=== PATIENT | female | born 1955 | race Caucasian/White ===

== ENCOUNTER → 2017-08-01 16:53 | Outpatient (CLI) | payer OTHER, SELFPAY ==
[2017-08-01 18:33] LABS: Absolute Lymphocyte Count 2.94 X10^3/ul (0.83-4.51); Absolute Neutrophil Count 3.2 X10^3/uL (2.0-7.7); Basophil# 0.02 X10^3/uL; Basophil% 0.3 % (0-1); Eosinophil# 0.34 X10^3/uL; Eosinophils% 4.7 % (0-5); Hematocrit 40.2 % (37-47); Hemoglobin 13.4 g/dl (12.0-15.0); Lymphocyte # 2.94 X10^3/ul (4.0); Lymphocyte % 40.9 % (19-41); Mean Corp Hgb Conc 33.3 g/gl (32-36); Mean Corpuscular Hgb 29.9 pg (27.0-32.0); Mean Corpuscular Volume 89.7 fL (81-99); Mean Platelet Vol. 10.2 fl (6.2-12.0); Monocyte# 0.68 X10^3/uL; Monocyte% 9.5 % (0-10); Neutrophil # 3.19 X10^3/uL (2.7-7.7); Neutrophil % 44.5 % (47-70); Platelet Count 241 K/mm3 (150-450); RBC Distribution Width CV 13.4 % (11.6-14.6); RBC Distribution Width SD 43.7 fl (35.1-43.9); Red Blood Count 4.48 M/mm3 (4.2-5.4); Thyroid Stim Hormone (TSH) 3.43 uIU/mL (0.358-3.74); White Blood Count 7.2 K/mm3 (4.4-11.0)
[2017-08-01 18:52] LABS: POSITIVE COUNT NO; POSITIVE DIFFERENTIAL NO; POSITIVE MORPHOLOGY NO
== END ==
PROVIDERS: Family Provider Family Medicine; PCP Family Medicine; Visit Provider Family Medicine
DX: J45.909 Unspecified asthma, uncomplicated (principal); E04.2 Nontoxic multinodular goiter
CPT/HCPCS: 36415; 84439; 84443; 85025

== ENCOUNTER → 2017-11-28 13:43 | Outpatient (CLI) | payer OTHER, SELFPAY | PROVIDERS: Family Provider Family Medicine; PCP Family Medicine; Visit Provider Family Medicine | DX: R92.8 Other abnormal and inconclusive findings on diagnostic imaging of breast (principal) | CPT/HCPCS: 77062; 77066; G0279 ==

== ENCOUNTER → 2018-12-10 06:57 | Outpatient (CLI) | payer OTHER, SELFPAY ==
--- NOTE | 2018-12-10 07:00 | BI_ITS ---
MAMMOGRAPHY - BILATERAL SCREENING REASON FOR EXAM: Female, 62 years old. Routine annual screening examination. PERTINENT HISTORY: Mother with breast cancer. Six-month follow-up for left breast calcification. TECHNIQUE: Digital bilateral breast zuleyma (3D mammographic acquisition) in the CC and MLO projections. 2-D mediolateral oblique (MLO) and craniocaudad (CC) views of both breasts were obtained. CAD: Full Field Digital Mammography with Computer Added Detection was performed. COMPARISON: Comparison is made with prior study dated November 28, 2017. FINDINGS: Breast Composition: There are scattered areas of fibroglandular density. There are no dominant masses or suspicious calcifications. Stable calcification in the central retroareolar region of the left breast. Stable bilateral axillary lymph nodes. No other significant abnormalities are identified. There has been no significant change since the prior study. BI/SCREEN MAMM (CAD) W/ZULEYMA BILAT IMPRESSION: Stable bilateral screening mammogram. Yearly follow-up mammogram recommended. (A) ASSESSMENT CATEGORY: BIRADS Category 2: Benign. A letter regarding these results will be sent to the patient by the facility within 30 days. Approximately 10% of breast cancers are not detected by mammography. A normal mammogram should not delay biopsy of a clinically suspicious abnormality. [id number] Electronically Signed: Chintan Lopez, at 9:16 EDT , Service support ,
== END ==
PROVIDERS: Family Provider Family Medicine; PCP Family Medicine; Referring Provider Family Medicine; Visit Provider Family Medicine
DX: Z12.31 Encounter for screening mammogram for malignant neoplasm of breast (principal); Z80.3 Family history of malignant neoplasm of breast
CPT/HCPCS: 77063; 77067

== ENCOUNTER → 2019-02-06 09:16 | Outpatient (CLI) | payer OTHER, SELFPAY ==
[2013-10-17 17:58] VITALS: BMI 33.6
[2019-02-06 09:22] LABS: Bacteria 0 SEEN /hpf (None Seen); Mucous, Urine 0 SEEN /hpf (<or=2+); Red Blood Cells-Urine 0 SEEN /hpf (0-5)
[2019-02-06 10:26] LABS: Color, Urine Yellow (Yellow); Glucose, Dipstick Normal (Normal); Ketone-Dipstick Negative (Negative); Leukocyte Esterase-Dipstick 25 /ul (Negative); Nitrite-Dipstick Negative (Negative); Occult Blood-Urine Negative /ul (Negative); Protein-Dipstick Negative (Negative); Specific Gravity, Urine 1.015 (1.002-1.030); Urine Bilirubin Dipstick Negative (Negative); Urine Clarity Clear (Clear); Urine Urobilinogen Normal (Normal)
[2019-02-06 10:39] LABS: Squamous Epithelial Cells - UA 0-5 SEEN /hpf (5-10); White Blood Cells 0-5 SEEN /hpf (0-5)
== END ==
PROVIDERS: Family Provider Family Medicine; PCP Family Medicine; Referring Provider Family Medicine; Visit Provider Family Medicine
DX: N39.0 Urinary tract infection, site not specified (principal)
CPT/HCPCS: 81001; 87086; 87088

== ENCOUNTER → 2019-02-09 08:39 | Outpatient (CLI) | payer OTHER, SELFPAY ==
[2013-10-17 17:58] VITALS: BMI 33.6
[2019-02-09 10:23] LABS: Absolute Lymphocyte Count 2.25 X10^3/uL (0.83-4.51); Absolute Neutrophil Count 4.1 X10^3/uL (2.0-7.7); Basophil# 0.03 X10^3/uL; Basophil% 0.4 % (0-1); Eosinophil# 0.33 X10^3/uL; Eosinophils% 4.5 % (0-5); Hemoglobin 13.5 g/dL (12.0-15.0); Lymphocyte # 2.25 X10^3/ul (4.0); Lymphocyte % 30.4 % (19-41); Mean Corp Hgb Conc 32.1 g/dL (32-36); Mean Corpuscular Hgb 29.4 pg (27.0-32.0); Mean Corpuscular Volume 91.5 fL (81-99); Mean Platelet Vol. 10.3 fl (6.2-12.0); Monocyte# 0.63 X10^3/uL; Monocyte% 8.5 % (0-10); NRBC Flagged by Analyzer 0 % (0-5); Neutrophil # 4.13 X10^3/uL (2.7-7.7); Neutrophil % 55.9 % (47-70); Platelet Count 215 K/mm3 (150-450); RBC Distribution Width CV 13.2 % (11.6-14.6); RBC Distribution Width SD 44.3 fl (35.1-43.9); Red Blood Count 4.59 M/mm3 (4.2-5.4); White Blood Count 7.4 K/mm3 (4.4-11.0)
[2019-02-09 10:58] LABS: ALB/GLOB Ratio 0.9 RATIO (0.9-2.4); AST(SGOT) 17 U/L (15-37); Alanine Aminotransfer ALT/SGPT 26 U/L (13-56); Albumin, Serum 3.7 g/dL (3.2-5.0); Alkaline Phosphatase 105 U/L (45-117); Anion Gap 9 (5-15); BUN 23 mg/dL (7-18); BUN/Creat Ratio 34.8 RATIO (10-20); Calcium,Total 9.2 mg/dL (8.5-10.1); Chloride 106 mmol/L (98-107); Cholesterol 203 mg/dL (200); Creatinine, Serum 0.66 mg/dL (0.55-1.02); EST Glomerular Filtration Rate 96 mL/min (>60); Est Glom Filt Rate - Afr Amer 117 mL/min (>60); Globulin 4.2 g/dL (2.2-4.2); Glucose 93 mg/dL (74-106); High Density Lipoprotein 85 mg/dL; Potassium 3.8 mmol/L (3.5-5.1); Protein, Total 7.9 g/dL (6.4-8.2); Sodium Level 140 mmol/L (136-145); Thyroid Stim Hormone (TSH) 4.35 uIU/mL (0.358-3.74); Triglycerides 107 mg/dL; Very Low Density Lipoprotein 21 mg/dL (5-40)
[2019-02-10 08:58] LABS: T4 Free Direct 0.91 ng/dL (0.76-1.46)
== END ==
PROVIDERS: Family Provider Family Medicine; PCP Family Medicine; Visit Provider Family Medicine
DX: Z00.00 Encounter for general adult medical examination without abnormal findings (principal); R79.89 Other specified abnormal findings of blood chemistry
CPT/HCPCS: 36415; 80053; 80061; 84439; 84443; 85025

== ENCOUNTER → 2019-02-10 14:57 | Outpatient (CLI) | payer OTHER, SELFPAY ==
[2019-02-10 18:18] LABS: T4 Free Direct 0.97 ng/dL (0.76-1.46)
[2019-02-12 15:48] LABS: Thyroglobulin Antibody 40.1 IU/mL (0.0-0.9); Thyroid Peroxidase AB 209 IU/mL (0-34)
== END ==
PROVIDERS: Family Provider Family Medicine; PCP Family Medicine; Visit Provider Family Medicine
DX: R79.89 Other specified abnormal findings of blood chemistry (principal)
CPT/HCPCS: 36415; 84439; 86376; 86800

== ENCOUNTER → 2019-03-16 13:17 | Outpatient (CLI) | payer OTHER, SELFPAY ==
--- NOTE | 2019-03-16 13:18 | US_ITS ---
STUDY: THYROID ULTRASOUND REASON FOR EXAM: Female, 63 years old. NODULES TECHNIQUE: Ultrasound evaluation of the thyroid was performed with real-time and static parker-scale imaging. COMPARISON: None. FINDINGS: RIGHT LOBE: The right lobe of the thyroid gland measures 5.2 x 1.8 x 1.8 cm. There is a heterogeneous echotexture. Within the right thyroid lobe there are multiple hypoechoic and isoechoic nodules with hypoechoic rim and internal color flow, largest seen within the middle pole and measuring 2.3 x 1.9 x 1.1 cm. This reveals small internal calcification measuring 2.1 mm. The margins are regular. LEFT LOBE: The left lobe of the thyroid gland measures 4.8 x 1.4 x 1.9 cm. There is a heterogeneous echotexture. Within the lower pole of the left thyroid lobe there is a small hypoechoic nodule with internal color flow and hypoechoic rim. The margins are regular. ISTHMUS: The isthmus measures 0.4 cm. The regional lymph nodes are normal. US/Thyroid IMPRESSION: Bilateral thyroid lobe nodules, largest seen within the right middle pole and measuring 2.3 x 1.9 x 1.1 cm and morphology favoring benign process. Note to be made that benign versus malignant process cannot be accurately determined without microscopic evaluation or documentation of stability. If indicated, follow-up ultrasound in 8-12 months recommended. Electronically Signed: Chelsy Hays MD at 4:05 EST , Service support ,
--- NOTE | 2019-03-16 13:44 | ECHOD_ITS ---
Reason For Study: Heart Murmur Procedure This was a 2D Doppler, Color Flow transthoracic echocardiogram. Exam performed in department. Left Ventricle Normal LV size. Left ventricular systolic function is normal. The estimated ejection fraction is 55 %. No regional wall motion abnormalities noted. Right Ventricle Normal RV size. Normal systolic function. Atria Normal left atrium. Normal right atrium. Mitral Valve Normal mitral valve. Trivial eccentric mitral valve insufficiency. Tricuspid Valve Normal tricuspid valve. Aortic Valve Normal aortic valve. Trisinus/trileaflet aortic valve. Pulmonic Valve Normal pulmonic valve. Great Vessels Normal aortic root. The pulmonary artery is normal size. Normal inferior vena cava. Pericardium/Pleural No pericardial effusion. MMode/2D Measurements & Calculations LVIDd: 5.2 cm IVSd: 0.97 cm Ao root diam: 3.5 cm LVIDs: 3.0 cm LVPWd: 1.0 cm LA dimension: 4.0 cm RVDd: 2.9 cm FS: 42.3 % LAV(MOD-bp): 55.0 ml LA A4 area: 18.9 cm2 RA A4 area: 13.0 cm2 LAV(MOD-bp) Indexed: 30.6 ml/m2 LAV(MOD-sp2): 54.5 ml LAV(MOD-sp4): 53.5 ml Time Measurements MV dec time: 0.19 sec Doppler Measurements & Calculations MV E max edgardo: 85.2 cm/sec Lat Peak E' Edgardo: 12.9 cm/sec Med Peak E' Edgardo: 7.2 cm/sec MV A max edgardo: 69.0 cm/sec E/E' lat: 6.6 E/E' med: 11.9 MV E/A: 1.2 MV V2 max: 93.2 cm/sec MV P1/2t max edgardo: 93.2 cm/sec Ao V2 max: 131.4 cm/sec MV max P.5 mmHg MV P1/2t: 49.2 msec Ao max P.9 mmHg MV V2 mean: 50.2 cm/sec MV dec slope: 555.2 cm/sec2 MV mean P.2 mmHg MVA(P1/2t): 4.5 cm2 MV V2 VTI: 29.6 cm LV V1 max: 122.4 cm/sec PA V2 max: 100.2 cm/sec TR max edgardo: 225.4 cm/sec LV V1 max P.0 mmHg TR max P.3 mmHg Interpretation Summary Normal LV size. Left ventricular systolic function is normal. The estimated ejection fraction is 55 %. No regional wall motion abnormalities noted. Structurally normal valves. Ordering Physician: Mark Phipps Referring Physician: Mark Phipps Performed By: Khalif Nuñez RCS
== END ==
PROVIDERS: Family Provider Family Medicine; PCP Family Medicine; Referring Provider Family Medicine; Visit Provider Family Medicine
DX: E04.2 Nontoxic multinodular goiter (principal); R01.1 Cardiac murmur, unspecified
CPT/HCPCS: 76536; 93306

== ENCOUNTER → 2019-05-26 08:23 | Outpatient (CLI) | payer OTHER, SELFPAY ==
[2019-03-30 15:20] VITALS: BMI 33.6
[2019-05-26 10:56] LABS: ALB/GLOB Ratio 1.1 RATIO (0.9-2.4); AST(SGOT) 17 U/L (15-37); Alanine Aminotransfer ALT/SGPT 26 U/L (13-56); Albumin, Serum 3.6 g/dL (3.2-5.0); Alkaline Phosphatase 101 U/L (45-117); Anion Gap 5 (5-15); BUN 25 mg/dL (7-18); BUN/Creat Ratio 45.6 RATIO (10-20); Calcium,Total 9.2 mg/dL (8.5-10.1); Chloride 113 mmol/L (98-107); Creatinine, Serum 0.55 mg/dL (0.55-1.02); EST Glomerular Filtration Rate 119 mL/min (>60); Est Glom Filt Rate - Afr Amer 144 mL/min (>60); Globulin 3.4 g/dL (2.2-4.2); Glucose 97 mg/dL (74-106); Potassium 3.9 mmol/L (3.5-5.1); Sodium Level 142 mmol/L (136-145); T4 Free Direct 0.85 ng/dL (0.76-1.46); Thyroid Stim Hormone (TSH) 3.94 uIU/mL (0.358-3.74)
== END ==
PROVIDERS: PCP Family Medicine; Referring Provider Family Medicine; Visit Provider Family Medicine
DX: I10 Essential (primary) hypertension (principal); E06.3 Autoimmune thyroiditis
CPT/HCPCS: 36415; 80053; 84439; 84443

== ENCOUNTER → 2019-05-29 08:53 | Outpatient (CLI) | payer OTHER, SELFPAY ==
[2019-03-30 15:20] VITALS: BMI 33.6
--- NOTE | 2019-05-29 08:56 | RAD_ITS ---
HISTORY: HISTORY: thumb pain XR Hand Min 3 Views COMPARISON: Right hand imaging from the same day FINDINGS: # of images incl. paperwork: 3 3 views of the left hand. Osteoarthritis is present at the first carpometacarpal joint (, however, the disease is less than that of the right hand. No significant interphalangeal joint arthritis is present on the left hand other than perhaps a small osteophyte on the ulnar side of the sac and distal interphalangeal joint Bony alignment otherwise is normal. Cortices are intact. No foreign bodies are perceived. RAD/Hand Min 3 Views IMPRESSION: Osteoarthritis at the first carpometacarpal joint at 0555 Reported and signed by: Pedro Zambrano MD Electronically Signed: Pedro Zambrano MD at 5:54 EST Tel , Service support ,
--- NOTE | 2019-05-29 08:56 | RAD_ITS ---
HISTORY: HISTORY: thumb pain XR Hand Min 3 Views COMPARISON: No previous imaging. FINDINGS: # of images incl. paperwork: 3 3 views of the right hand. Osteoarthritis is severe at the first carpometacarpal joint. Minimal interphalangeal joint arthritis is present. At the first carpometacarpal joint there is sclerosis, osteophytes, malalignment, subcortical cystic degenerative change, and soft tissue swelling. RAD/Hand Min 3 Views IMPRESSION: Osteoarthritis greatest the first carpometacarpal joint. at 0553 Reported and signed by: Pedro Zambrano MD Electronically Signed: Pedro Zambrano MD at 5:52 EST Tel , Service support ,
== END ==
PROVIDERS: PCP Family Medicine; Referring Provider Family Medicine; Visit Provider Family Medicine
DX: M18.0 Bilateral primary osteoarthritis of first carpometacarpal joints (principal)
CPT/HCPCS: 73130

== ENCOUNTER → 2019-09-29 13:49 | Outpatient (CLI) | payer OTHER, SELFPAY ==
[2019-03-30 15:20] VITALS: BMI 33.6
[2019-09-29 18:14] LABS: T4 Free Direct 0.91 ng/dL (0.76-1.46)
== END ==
PROVIDERS: PCP Family Medicine; Visit Provider Family Medicine
DX: E06.3 Autoimmune thyroiditis (principal)
CPT/HCPCS: 36415; 84439; 84443

== ENCOUNTER → 2019-10-02 09:48 | Outpatient (CLI) | payer OTHER, SELFPAY ==
[2019-03-30 15:20] VITALS: BMI 33.6
--- NOTE | 2019-10-02 09:51 | RAD_ITS ---
STUDY: X-RAY - RIGHT KNEE REASON FOR EXAM: Female, 63 years old. bilateral knee pain TECHNIQUE: 3 view(s) of the knee. COMPARISON: 10/17/2013 FINDINGS: Normal visualized distal femur. Normal visualized proximal tibia and fibula. Normal proximal tibiofibular articulation. There is severe degenerative arthrosis of the medial femorotibial compartment with severe joint space narrowing. There is mild degenerative arthrosis of the lateral femorotibial compartment. There is moderate degenerative arthrosis of the patellofemoral articulation. There is a soft tissue prominence in the suprapatellar region suggesting a small volume joint effusion. The soft tissue structures are unremarkable. RAD/Knee 3 Views IMPRESSION: Degenerative arthrosis. Electronically Signed: Anshul Vasquez MD at 7:40 EDT Tel , Service support ,
--- NOTE | 2019-10-02 09:55 | RAD_ITS ---
STUDY: X-RAY - LEFT KNEE REASON FOR EXAM: Female, 63 years old. bilateral knee pain TECHNIQUE: 3 view(s) of the knee. COMPARISON: None. FINDINGS: Normal visualized distal femur. Normal visualized proximal tibia and fibula. Normal proximal tibiofibular articulation. There is moderate degenerative arthrosis of the medial femorotibial compartment with moderate joint space narrowing. There is mild degenerative arthrosis of the lateral femorotibial compartment. There is mild degenerative arthrosis of the patellofemoral articulation. There is a soft tissue prominence in the suprapatellar region suggesting a small volume joint effusion. The soft tissue structures are unremarkable. RAD/Knee 3 Views IMPRESSION: Degenerative arthrosis. Electronically Signed: Anshul Vasquez MD at 7:39 EDT Tel , Service support ,
== END ==
PROVIDERS: PCP Family Medicine; Referring Provider Family Medicine; Visit Provider Family Medicine
DX: M17.0 Bilateral primary osteoarthritis of knee (principal)
CPT/HCPCS: 73562

== ENCOUNTER 2019-10-16 08:43 | Day surgery (SDC) | payer OTHER, SELFPAY ==
[2019-03-30 15:20] VITALS: BMI 33.6
[2019-10-16] MEDS: Lactated Ringers 1,000 ML 100 ML IV (09:32)
[2019-10-16 09:33] VITALS: BP 128/79; PULSE 63; RESP 16; TEMP 36.1; O2SAT 95; BMI 33.3
--- NOTE | 2019-10-16 10:32 | PCM.HP.STD ---
Problem List (1) Screening for intestinal cancer Status: Acute History of Present Illness Date of Admission: 10/16/19 The patient is a 63 year old F who presents for screening colonoscopy today. She presents via open access. Previous colonoscopy was July 2009. She denies family history of colon cancer. No abdominal pain. No bright red blood per rectum or melena. She otherwise enjoys good health. Past Medical History Medical History: Medical History (Last Updated 03/30/19 @ 15:13 by Meeta Norman) Yann's thyroiditis (Acute) E06.3 Thyroid nodule (Acute) E04.1 Cardiac murmur R01.1 Yann's thyroiditis E06.3 Multiple thyroid nodules E04.2 HTN (hypertension) I10 Allergies No Known Allergies Allergy (Verified 10/16/19 09:07) Home Medications: Ambulatory Orders Medication Instructions Recorded amlodipine 10 mg tablet 10 mg PO DAILY 03/30/19 Hydrochlorothiazide 12.5 mg PO DAILY 10/09/19 Surgical History: Surgical History (Last Updated 03/30/19 @ 15:13 by Meeta Norman) History of arthroscopy of left knee Z98.890 History of colonoscopy Onset Date: ~2009 Z98.890 History of tonsillectomy Z90.89 History of total hysterectomy Z90.710 history of removal heel spur Smoking Status: Never smoker Tobacco Use: Non-smoker Review of Systems Constitutional: Denies: Chills, Fever Cardiovascular: Denies: Chest Pain Gastrointestinal: Denies: Abdominal Pain Endocrine: Denies: Change in Body Habitus VTE Information - Inpt Only VTE Present on Admission: No Patient Problems: Active and Suspected Problems (Last Updated 03/30/19 @ 15:13 by Meeta Norman) Screening for intestinal cancer (Acute) - Physical Exam Vitals/I&O's: Vital Signs Temp Pulse Resp BP Pulse Ox 97.0 F L 63 16 128/79 H 95 10/16/19 09:33 10/16/19 09:33 10/16/19 09:33 10/16/19 09:33 10/16/19 09:33 Oxygen Delivery Method Room Air Weight: 188 lb 7.924 oz Body Mass Index (BMI) 33.3 General: Alert, Oriented x3, Cooperative, No apparent distress HEENT: Atraumatic Oral: Moist Mucosa Lungs: Clear to auscultation, Normal air movement Cardiovascular: Regular rate, Regular Rhythm Abdomen: Bowel Sounds Present, Soft, Non Tender Extremities: No Calf Tenderness Neurological: - - Normal cognition Psych/Mental Status: Normal Affect Current Medications Lactated Ringer's () 1,000 mls @ 100 mls/hr IV .Q10H JONATHON Last Admin: 10/16/19 09:32 Dose: 100 mls/hr Documented by: Assessment/Plan All Active Problems (Last Updated 03/30/19 @ 15:13 by Meeta Norman) Screening for intestinal cancer (Acute) Yann's thyroiditis (Acute) Thyroid nodule (Acute) Arm contusion (Acute) I recommended the patient a screening colonoscopy with possible biopsy or polypectomy is indicated. She is aware of the technique, benefit, risk, alternatives. She presents via open access today. We will proceed as noted. Sandip Raman M.D., F.A.C.S. Procedure Criteria Procedure Type: Elective COVID Risk Discussion: The surgeon/proceduralist and patient have discussed in detail the risk of exposure to and/or potential harm posed by the COVID-19 virus with having a surgery/procedure at this time versus the risk of delaying the surgery/procedure. It is not possible to know either the risk of delaying the surgery or procedure or chance of getting an infection with perfect accuracy, but a joint decision was made between the patient and the surgeon/proceduralist to proceed at this time with the scheduled surgery/procedure as indicated on the consent form.
[2019-10-16 11:10] VITALS: BP 112/61; BP 128/79; PULSE 75; RESP 16; TEMP 36.5; O2SAT 99
--- NOTE | 2019-10-16 11:10 | OP.COLON_ITS ---
Patient Name: Faye Gant Procedure Date: 10/16/2019 10:37 AM Date of : 1955 Age: 63 Procedure: Colonoscopy Indications: Screening for colorectal malignant neoplasm Providers: Sandip Raman MD Referring MD: Mark Phipps Medicines: See the Anesthesia note for documentation of the administered medications Patient Profile: Last Colonoscopy: 10 years ago. Complications: No immediate complications. Procedure: Pre-Anesthesia Assessment: - Prior to the procedure, a History and Physical was performed, and patient medications and allergies were reviewed. The patient's tolerance of previous anesthesia was also reviewed. The risks and benefits of the procedure and the sedation options and risks were discussed with the patient. All questions were answered, and informed consent was obtained. Prior Anticoagulants: The patient has taken no previous anticoagulant or antiplatelet agents. ASA Grade Assessment: II - A patient with mild systemic disease. After reviewing the risks and benefits, the patient was deemed in satisfactory condition to undergo the procedure. After I obtained informed consent, the scope was passed under direct vision. Throughout the procedure, the patient's blood pressure, pulse, and oxygen saturations were monitored continuously. The pediatric colonoscope was introduced through the anus and advanced to the cecum, identified by appendiceal orifice and ileocecal valve. The colonoscopy was performed with moderate difficulty due to a tortuous colon. The patient tolerated the procedure well. The quality of the bowel preparation was adequate to identify polyps. The ileocecal valve and the appendiceal orifice were photographed. Scope In: 10:49:59 AM Scope Withdrawal Time 0 hours 6 minutes 39 seconds Scope Out: 11:05:08 AM Total Procedure Duration Time 0 hours 15 minutes 9 seconds Findings: The digital rectal exam findings include non-thrombosed external hemorrhoids, non-thrombosed internal hemorrhoids and internal hemorrhoids that prolapse with straining, but spontaneously regress to the resting position (Grade II). Scattered diverticula were found in the sigmoid colon. The colon (entire examined portion) was moderately tortuous. Advancing the scope required using manual pressure. Impression: - Non-thrombosed external hemorrhoids, non-thrombosed internal hemorrhoids and internal hemorrhoids that prolapse with straining, but spontaneously regress to the resting position (Grade II) found on digital rectal exam. - Diverticulosis in the sigmoid colon. - Tortuous colon. - No specimens collected. Recommendation: - Discharge patient to home. - Resume previous diet. - Continue present medications. - Repeat colonoscopy in 10 years for screening purposes. Procedure Code(s): --- Professional --- 78612, Colonoscopy, flexible; diagnostic, including collection of specimen(s) by brushing or washing, when performed (separate procedure) Diagnosis Code(s): --- Professional --- Z12.11, Encounter for screening for malignant neoplasm of colon K64.1, Second degree hemorrhoids K64.4, Residual hemorrhoidal skin tags K57.30, Diverticulosis of large intestine without perforation or abscess without bleeding Q43.8, Other specified congenital malformations of intestine CPT copyright 2017 [employer]. All rights reserved. The codes documented in this report are preliminary and upon remote inpatient coder review may be revised to meet current compliance requirements. Sandip Raman MD 10/16/2019 11:09:36 AM This report has been signed electronically. Number of Addenda: 0 Note Initiated On: 10/16/2019 10:37 AM
--- NOTE | 2019-10-16 11:10 | OP.CCLET_ITS ---
10/16/2019 Mark Phipps [address] [place] [address] Re : Colonoscopy procedure for Faye Richmond Dear Dr. Phipps This procedure was performed on Wednesday, October 16, 2019. My impressions and recommendations are as follows: Impressions : - Non-thrombosed external hemorrhoids, non-thrombosed internal hemorrhoids and internal hemorrhoids that prolapse with straining, but spontaneously regress to the resting position (Grade II) found on digital rectal exam. - Diverticulosis in the sigmoid colon. - Tortuous colon. - No specimens collected. Recommendations : - Discharge patient to home. - Resume previous diet. - Continue present medications. - Repeat colonoscopy in 10 years for screening purposes. My findings are described in the full procedure note, which is enclosed. If I can be of further assistance, please feel free to contact me at Doctor phone number(s): Work: . Sincerely, Sandip Raman MD 10/16/2019 11:09:36 AM This report has been signed electronically.
[2019-10-16 11:15] VITALS: BP 113/58; BP 128/79; PULSE 64; RESP 16; O2SAT 99
[2019-10-16 11:20] VITALS: BP 112/60; BP 128/79; PULSE 53; RESP 16; O2SAT 99
[2019-10-16 11:25] VITALS: BP 119/75; BP 128/79; PULSE 53; RESP 16; TEMP 36.2; O2SAT 100
[2019-10-16 11:48] VITALS: BP 128/79
== END 2019-10-16 11:49 | disposition home or self-care (01) ==
LOC: EN 08:44 → AC 08:46
PROVIDERS: Anesthesiology; PCP Family Medicine; Referring Provider Family Medicine; Visit Provider Surgery
PROC: 0DJD8ZZ Inspection of Lower Intestinal Tract, Via Natural or Artificial Opening Endoscopic (ICD-10-PCS; CPT 45378; principal; 2019-10-16 09:55)
DX: Z12.11 Encounter for screening for malignant neoplasm of colon (principal); K64.1 Second degree hemorrhoids; K64.4 Residual hemorrhoidal skin tags; K57.30 Diverticulosis of large intestine without perforation or abscess without bleeding; I10 Essential (primary) hypertension; Z20.828 Contact with and (suspected) exposure to other viral communicable diseases
CPT/HCPCS: 45378; 87635; 94799; G2023; J7120; J2405; U0003

== ENCOUNTER → 2020-02-12 08:55 | Outpatient (CLI) | payer OTHER, SELFPAY ==
[2020-02-12 10:22] LABS: Absolute Lymphocyte Count 1.89 X10^3/uL (0.83-4.51); Basophil# 0.04 X10^3/uL; Basophil% 0.6 % (0-1); Eosinophil# 0.33 X10^3/uL; Eosinophils% 4.8 % (0-5); Hematocrit 44.1 % (37-47); Hemoglobin 13.8 g/dL (12.0-15.0); Lymphocyte # 1.89 X10^3/ul (4.0); Lymphocyte % 27.6 % (19-41); Mean Corp Hgb Conc 31.3 g/dL (32-36); Mean Corpuscular Hgb 28.7 pg (27.0-32.0); Mean Corpuscular Volume 91.7 fL (81-99); Mean Platelet Vol. 10.1 fl (6.2-12.0); Monocyte# 0.62 X10^3/uL; NRBC Flagged by Analyzer 0 % (0-5); Neutrophil # 3.97 X10^3/uL (2.7-7.7); Neutrophil % 57.9 % (47-70); Platelet Count 252 K/mm3 (150-450); RBC Distribution Width CV 12.9 % (11.6-14.6); RBC Distribution Width SD 43.7 fl (35.1-43.9); Red Blood Count 4.81 M/mm3 (4.2-5.4); White Blood Count 6.9 K/mm3 (4.4-11.0)
[2020-02-12 10:39] LABS: Microalbumin,Random Urine 8.9 mg/L (NO RANGE EST.)
[2020-02-12 10:43] LABS: ALB/GLOB Ratio 0.9 RATIO (0.9-2.4); AST(SGOT) 19 U/L (15-37); Alanine Aminotransfer ALT/SGPT 29 U/L (13-56); Albumin, Serum 3.7 g/dL (3.2-5.0); Alkaline Phosphatase 108 U/L (45-117); Anion Gap 6 (5-15); BUN 19 mg/dL (7-18); BUN/Creat Ratio 28.1 RATIO (10-20); Calcium,Total 9.3 mg/dL (8.5-10.1); Chloride 106 mmol/L (98-107); Creatinine, Serum 0.68 mg/dL (0.55-1.02); EST Glomerular Filtration Rate 93 mL/min (>60); Est Glom Filt Rate - Afr Amer 113 mL/min (>60); Globulin 4.2 g/dL (2.2-4.2); Glucose 107 mg/dL (74-106); Potassium 3.8 mmol/L (3.5-5.1); Protein, Total 7.9 g/dL (6.4-8.2); Sodium Level 138 mmol/L (136-145); T4 Free Direct 1.16 ng/dL (0.76-1.46); Thyroid Stim Hormone (TSH) 3.65 uIU/mL (0.358-3.74)
[2020-02-15 12:35] LABS: Hemoglobin A1c 5.6 % (3.8-5.6)
== END ==
PROVIDERS: PCP Family Medicine; Visit Provider Family Medicine
DX: E06.3 Autoimmune thyroiditis (principal); E11.9 Type 2 diabetes mellitus without complications; I10 Essential (primary) hypertension
CPT/HCPCS: 36415; 80053; 82043; 82570; 83036; 84439; 84443; 85025

== ENCOUNTER → 2020-02-25 13:40 | Outpatient (CLI) | payer OTHER, SELFPAY ==
--- NOTE | 2020-02-25 13:42 | US_ITS ---
STUDY: THYROID ULTRASOUND REASON FOR EXAM: Female, 64 years old. Nodules TECHNIQUE: Ultrasound evaluation of the thyroid was performed with real-time and static parker-scale imaging. COMPARISON: Comparison is made with prior examination dated 03/16/2019. FINDINGS: RIGHT LOBE: The right lobe of the thyroid gland is enlarged and measures 5.4 cm x 1.9 cm x 1.7 cm. There is a heterogeneous echotexture. A dominant nodule is once again seen in the lower pole. This measures 2.1 cm x 1.6 x 1.1 cm. This has a cystic and solid component. Internal nodular blood flow. LEFT LOBE: The left lobe of the thyroid gland is enlarged and measures 5 cm x 1.4 cm x 1.6 cm. There is a heterogeneous echotexture. There is a 9 mm x 7 mm x 5 mm hypoechoic solid nodule in the lower pole. This is unchanged. There is internal blood flow. ISTHMUS: The isthmus measures 3.3 mm. The regional lymph nodes are normal. US/Thyroid IMPRESSION: Stable examination with a dominant complex nodule in the lower pole of the right lobe of thyroid measuring 2.1 cm x 1.6 cm x 1.1 cm. Electronically Signed: Chintan Lopez, at 14:46 EST , Service support ,
== END ==
PROVIDERS: PCP Family Medicine; Referring Provider Family Medicine; Visit Provider Family Medicine
DX: E04.2 Nontoxic multinodular goiter (principal)
CPT/HCPCS: 76536

== ENCOUNTER → 2020-05-27 10:05 | Outpatient (CLI) | payer OTHER, SELFPAY ==
[2020-05-27 10:11] LABS: Bacteria 0 SEEN /hpf (None Seen); Mucous, Urine 0 SEEN /hpf (<or=2+); Red Blood Cells-Urine 0 SEEN /hpf (0-5); White Blood Cells 0 SEEN /hpf (0-5)
[2020-05-27 12:19] LABS: Absolute Lymphocyte Count 1.99 X10^3/uL (0.83-4.51); Absolute Neutrophil Count 3.6 X10^3/uL (2.0-7.7); Basophil# 0.03 X10^3/uL; Basophil% 0.4 % (0-1); Eosinophil# 0.52 X10^3/uL; Eosinophils% 7.7 % (0-5); Hematocrit 39.3 % (37-47); Hemoglobin 13.7 g/dL (12.0-15.0); Lymphocyte # 1.99 X10^3/ul (4.0); Lymphocyte % 29.6 % (19-41); Mean Corp Hgb Conc 34.9 g/dL (32-36); Mean Corpuscular Volume 91.8 fL (81-99); Mean Platelet Vol. 10.3 fl (6.2-12.0); Monocyte% 8.9 % (0-10); NRBC Flagged by Analyzer 0 % (0-5); Neutrophil # 3.56 X10^3/uL (2.7-7.7); Neutrophil % 53.1 % (47-70); Platelet Count 217 K/mm3 (150-450); RBC Distribution Width CV 13.8 % (11.6-14.6); RBC Distribution Width SD 44.4 fl (35.1-43.9); Red Blood Count 4.28 M/mm3 (4.2-5.4); White Blood Count 6.7 K/mm3 (4.4-11.0)
[2020-05-27 12:23] LABS: Color, Urine Yellow (Yellow); Glucose, Dipstick Normal (Normal); Ketone-Dipstick Negative (Negative); Leukocyte Esterase-Dipstick Negative /ul (Negative); Nitrite-Dipstick Negative (Negative); Occult Blood-Urine Negative /ul (Negative); Protein-Dipstick Negative (Negative); Specific Gravity, Urine 1.015 (1.002-1.030); Urine Bilirubin Dipstick Negative (Negative); Urine Clarity Clear (Clear); Urine Urobilinogen Normal (Normal)
[2020-05-27 12:33] LABS: Microalbumin,Random Urine 5.4 mg/L (NO RANGE EST.); Microalbumin:Creatinine Ratio 23.7 mg/g CRE (<30 mg/g CRE)
[2020-05-27 12:39] LABS: ALB/GLOB Ratio 0.9 RATIO (0.9-2.4); AST(SGOT) 16 U/L (15-37); Alanine Aminotransfer ALT/SGPT 30 U/L (13-56); Albumin, Serum 3.5 g/dL (3.2-5.0); Alkaline Phosphatase 124 U/L (45-117); Anion Gap 8 (5-15); BUN 25 mg/dL (7-18); BUN/Creat Ratio 39.4 RATIO (10-20); Calcium,Total 9.2 mg/dL (8.5-10.1); Chloride 108 mmol/L (98-107); Cholesterol 190 mg/dL (200); Creatinine, Serum 0.64 mg/dL (0.55-1.02); EST Glomerular Filtration Rate 100 mL/min (>60); Est Glom Filt Rate - Afr Amer 122 mL/min (>60); Glucose 101 mg/dL (74-106); High Density Lipoprotein 71 mg/dL; Potassium 3.2 mmol/L (3.5-5.1); Protein, Total 7.5 g/dL (6.4-8.2); Sodium Level 141 mmol/L (136-145); T4 Free Direct 1.11 ng/dL (0.76-1.46); Thyroid Stim Hormone (TSH) 2.55 uIU/mL (0.358-3.74); Triglycerides 114 mg/dL; Very Low Density Lipoprotein 23 mg/dL (5-40)
[2020-05-27 13:03] LABS: Hemoglobin A1c 5.5 % (3.8-5.6)
[2020-05-27 13:08] LABS: Squamous Epithelial Cells - UA 0-5 SEEN /hpf (5-10)
== END ==
PROVIDERS: PCP Family Medicine; Referring Provider Family Medicine; Visit Provider Family Medicine
DX: I10 Essential (primary) hypertension (principal); E11.9 Type 2 diabetes mellitus without complications; E06.3 Autoimmune thyroiditis
CPT/HCPCS: 36415; 80053; 80061; 81001; 82043; 82570; 83036; 84439; 84443; 85025

== ENCOUNTER → 2020-06-17 13:58 | Outpatient (CLI) | payer OTHER, SELFPAY ==
[2020-06-17 17:44] LABS: Potassium 3.5 mmol/L (3.5-5.1)
== END ==
PROVIDERS: PCP Family Medicine; Referring Provider Family Medicine; Visit Provider Family Medicine
DX: E87.6 Hypokalemia (principal)
CPT/HCPCS: 36415; 84132

== ENCOUNTER → 2020-11-15 14:18 | Outpatient (CLI) | payer OTHER, SELFPAY ==
--- NOTE | 2020-11-15 14:22 | RAD_ITS ---
STUDY: X-RAY CHEST REASON FOR EXAM: Female, 64 years old. ASTHMA TECHNIQUE: PA and lateral views of the chest. COMPARISON: None. FINDINGS: The lungs are clear and expanded. Scattered calcified granulomas. There is no demonstrated pleural abnormality. Normal size heart. Normal mediastinum and angelita. Normal visualized pulmonary arteries. Normal visualized aortic arch and descending thoracic aorta. There is demineralization of the osseous structures. Normal visualized ribs, clavicles, and shoulders. There is no demonstrated abnormality of the visualized soft tissue structures of the upper abdomen. RAD/Chest PA and Lateral IMPRESSION: No acute abnormality is seen. Electronically Signed: Chintan Lopez MD at 14:28 EDT , Service support ,
== END ==
PROVIDERS: PCP Family Medicine; Referring Provider Family Medicine; Visit Provider Family Medicine
DX: J45.909 Unspecified asthma, uncomplicated (principal)
CPT/HCPCS: 71046

== ENCOUNTER → 2020-11-25 07:01 | Outpatient (CLI) | payer OTHER, SELFPAY ==
--- NOTE | 2020-11-25 07:03 | BI_ITS ---
MAMMOGRAPHY - BILATERAL SCREENING 3-D TOMOSYNTHESIS REASON FOR EXAM: Female, 64 years old. SCREENING PERTINENT HISTORY: No significant family history. TECHNIQUE: 2-D mammograms and 3-D Tomosynthesis of the breast (s) were performed. CAD was performed. COMPARISON: 12/10/2018 FINDINGS: The breast composition is composed of scattered fibroglandular density. Scattered benign calcifications are seen. No dense spiculated masses or suspicious microcalcifications are identified. No architectural distortion is identified. There is no skin thickening or retraction. There has been no significant change since the prior study. BI/SCRN MAMM (CAD)W/ZULEYMA BILAT IMPRESSION: No mammographic signs of malignancy. Routine yearly mammograms recommended. ASSESSMENT CATEGORY: BIRADS Category 1: Negative. A letter regarding these results will be sent to the patient by the facility within 30 days. FOLLOW UP RECOMMENDATION: Yearly follow up mammogram recommended. (A) Approximately 10% of breast cancers are not detected by mammography. A normal mammogram should not delay biopsy of a clinically suspicious abnormality. Electronically Signed: Anshul Vasquez MD at 8:51 EDT Tel , Service support ,
== END ==
PROVIDERS: PCP Family Medicine; Referring Provider Family Medicine; Visit Provider Family Medicine
DX: Z12.31 Encounter for screening mammogram for malignant neoplasm of breast (principal)
CPT/HCPCS: 77063; 77067

== ENCOUNTER → 2021-01-06 14:22 | Outpatient (CLI) | payer OTHER, SELFPAY ==
--- NOTE | 2021-01-06 14:25 | RAD_ITS ---
STUDY: X-RAY - LEFT TIBIA AND FIBULA REASON FOR EXAM: Female, 65 years old. LEG PAIN TECHNIQUE: 2 view(s) of the tibia and fibula were obtained. COMPARISON: None. FINDINGS: Normal visualized tibia. Normal visualized fibula. The soft tissue structures are unremarkable. RAD/Tibia & Fibula 2 Views IMPRESSION: Normal x-ray examination of the tibia and fibula. Electronically Signed: Chintan Lopez MD at 13:39 EDT , Service support ,
--- NOTE | 2021-01-06 14:25 | RAD_ITS ---
STUDY: X-RAY - RIGHT TIBIA AND FIBULA REASON FOR EXAM: Female, 65 years old. LEG PAIN TECHNIQUE: 2 view(s) of the tibia and fibula were obtained. COMPARISON: None. FINDINGS: Normal visualized tibia. Normal visualized fibula. Mild degenerative changes at the knee. The soft tissue structures are unremarkable. RAD/Tibia & Fibula 2 Views IMPRESSION: No acute bony injury of the tibia and fibula. Electronically Signed: Israel Recinos DO at 22:37 EDT Tel [phone], Service support ,
== END ==
PROVIDERS: PCP Family Medicine; Referring Provider Family Medicine; Visit Provider Family Medicine
DX: M79.604 Pain in right leg (principal); M79.605 Pain in left leg
CPT/HCPCS: 73590

== ENCOUNTER 2021-06-23 10:55 | Outpatient (CLI) | payer OTHER, SELFPAY ==
[2021-06-23 10:57] LABS: Bacteria 0 SEEN /hpf (None Seen); Mucous, Urine 0 SEEN /hpf (<or=2+); Red Blood Cells-Urine 0 SEEN /hpf (0-5); Squamous Epithelial Cells - UA 0 SEEN /hpf (5-10); White Blood Cells 0 SEEN /hpf (0-5)
[2021-06-23 12:11] LABS: Glucose, Dipstick Normal (Normal); Ketone-Dipstick Negative (Negative); Leukocyte Esterase-Dipstick Negative /ul (Negative); Nitrite-Dipstick Negative (Negative); Occult Blood-Urine Negative /ul (Negative); Protein-Dipstick Negative (Negative); Urine Bilirubin Dipstick Negative (Negative); Urine Urobilinogen Normal (Normal); Urine pH 6.5 (5.0 - 8.0)
[2021-06-23 12:19] LABS: Absolute Lymphocyte Count 2.23 X10^3/uL (0.83-4.51); Absolute Neutrophil Count 3.9 X10^3/uL (2.0-7.7); Basophil# 0.03 X10^3/uL; Basophil% 0.4 % (0-1); Eosinophil# 0.58 X10^3/uL; Eosinophils% 7.8 % (0-5); Hematocrit 41.5 % (37-47); Hemoglobin 13.9 g/dL (12.0-15.0); Lymphocyte # 2.23 X10^3/ul (0.83-4.51); Mean Corp Hgb Conc 33.5 g/dL (32-36); Mean Corpuscular Hgb 29.3 pg (27.0-32.0); Mean Corpuscular Volume 87.4 fL (81-99); Monocyte# 0.68 X10^3/uL; Monocyte% 9.1 % (0-10); NRBC Flagged by Analyzer 0 % (0-5); Neutrophil % 52.4 % (47-70); Platelet Count 250 K/mm3 (150-450); RBC Distribution Width SD 41.4 fl (35.1-43.9); Red Blood Count 4.75 M/mm3 (4.2-5.4); White Blood Count 7.4 K/mm3 (4.4-11.0)
[2021-06-23 12:21] LABS: Color, Urine Yellow (Yellow); Urine Clarity Clear (Clear)
[2021-06-23 12:51] LABS: ALB/GLOB Ratio 0.9 RATIO (0.9-2.4); AST(SGOT) 21 U/L (15-37); Alanine Aminotransfer ALT/SGPT 28 U/L (13-56); Albumin, Serum 3.6 g/dL (3.2-5.0); Alkaline Phosphatase 97 U/L (45-117); Anion Gap 8 (5-15); BUN 25 mg/dL (7-18); BUN/Creat Ratio 40.3 RATIO (10-20); Calcium,Total 9.1 mg/dL (8.5-10.1); Chloride 104 mmol/L (98-107); Cholesterol 213 mg/dL (200); Creatinine, Serum 0.62 mg/dL (0.55-1.02); EST Glomerular Filtration Rate 103 mL/min (>60); Est Glom Filt Rate - Afr Amer 124 mL/min (>60); Globulin 4.1 g/dL (2.2-4.2); Glucose 111 mg/dL (74-106); High Density Lipoprotein 74 mg/dL; Potassium 2.5 mmol/L (3.5-5.1); Protein, Total 7.7 g/dL (6.4-8.2); Sodium Level 139 mmol/L (136-145); Thyroid Stim Hormone (TSH) 5.23 uIU/mL (0.358-3.74); Triglycerides 108 mg/dL; Very Low Density Lipoprotein 22 mg/dL (5-40)
[2021-06-23 17:08] LABS: Hemoglobin A1c 5.8 % (3.8-5.6)
== END 2021-06-23 23:59 | disposition home or self-care (01) ==
LOC: MFPLAB 10:55
PROVIDERS: PCP Family Medicine; Referring Provider Family Medicine; Visit Provider Family Medicine
DX: I10 Essential (primary) hypertension (principal); E06.3 Autoimmune thyroiditis; R73.09 Other abnormal glucose
CPT/HCPCS: 36415; 80053; 80061; 81001; 83036; 84439; 84443; 85025

== ENCOUNTER 2021-06-23 14:12 | Emergency (ER) | payer OTHER, SELFPAY ==
[2021-06-23 14:14] VITALS: BP 150/74; PULSE 71; RESP 16; TEMP 36.1; O2SAT 98; BMI 31.8
[2021-06-23 14:24] VITALS: PULSE 80; RESP 18
--- NOTE | 2021-06-23 14:32 | EDS_ITS ---
HPI History of Present Illness Chief Complaint: Abn Labs Narrative Narrative: Patient had her annual physical today, routine blood work drawn this morning showed a potassium of 2.5 she was sent into the emergency department for replacement of her potassium. She is asymptomatic and feels well without any weakness. No symptoms of any GI loss recently. She is on HCTZ 25 mg daily has been on it for some time, about a year. No other diuretics. She is on it for blood pressure. [facility] Medical History Cardiac murmur Yann's thyroiditis Yann's thyroiditis HTN (hypertension) Multiple thyroid nodules Thyroid nodule Home Medications amlodipine 10 mg tablet 10 mg PO DAILY 03/30/19 [History Last Taken Unknown] hydrochlorothiazide 25 mg PO DAILY 06/23/21 [History Last Taken Unknown] potassium chloride 20 meq PO BID #14 tab 06/23/21 [Rx Last Taken Unknown] Allergy/AdvReac Type Severity Reaction Status Date / Time No Known Allergies Allergy Verified 06/23/21 14:14 Surgical History (Updated 10/16/19 @ 10:[address] Sandip Raman MD) History of arthroscopy of left knee History of colonoscopy (~2009) history of removal heel spur History of tonsillectomy History of total hysterectomy Social History Smoking Status: Never smoker ROS ROS ED Constitutional Constitutional ED: Denies chills or fever(s) Eyes Eyes: Denies change in vision or diplopia ENT ENT ED: Denies rhinorrhea or sore throat Cardiovascular Cardiovascular: Denies chest pain or palpitations Respiratory/Chest Respiratory/Chest: Denies cough or dyspnea Gastrointestinal Gastrointestinal: Denies abdominal pain, diarrhea, nausea or vomiting Genitourinary Genitourinary ED: Denies dysuria or hematuria Musculoskeletal Musculoskeletal: Denies back pain or neck pain Integumentary Denies abscess or rash Neurologic Neurologic: Denies headache(s), paresthesias or weakness Psychiatric Psychiatric: Denies anxiety or suicidal thoughts EXAM Physical Exam Const Vital Signs: 06/23/21 14:14 06/23/21 14:24 06/23/21 14:25 Temperature 97 F L Temperature Source Temporal Pulse Rate 71 80 Respiratory Rate 16 18 Respiratory Effort Normal Respiratory Pattern Normal Blood Pressure 150/74 H Blood Pressure Mean 99 Pulse Ox 98 Oxygen Delivery Method Room Air Positive well nourished and well developed General Appearance ED: well developed and NAD HEENT Reports moist mucous membranes normocephalic and atraumatic Eyes PERRL and EOMs intact bilaterally Neck full ROM and supple Resp normal respiratory effort and clear to auscultation bilaterally Cardio regular rate, regular rhythm and no murmurs GI non-tender and non-distended Auscultation: normoactive bowel sounds Palpation: soft Back/Spine no CVA tenderness General Back: other FROM Extremity normal to inspection General Extremety ED: Negative for edema, pulses abnormal or tenderness General Extremity: Negative for edema or pulses abnormal Neuro oriented x3, CN's II-XII intact bilaterally and no sensory deficits noted Sensorium / Orientation: awake and alert Motor Exam: strength 5/5 throughout Skin no rashes or lesions noted and no wounds MDM MDM MDM Narrative Medical decision making narrative: I reviewed the patient's labs, they were done at our lab here and done today several hours ago as an outpatient. Her potassium was 2.5. The only other abnormality other than prerenal azotemia was a TSH of 5.2, her free T4 is normal at 1.0. I discussed all this with Dr. Phipps PCP, he agrees with the liter of fluid, 2 runs of potassium chloride IV 10 mEq and oral 40 of potassium, discharging her home afterwards with 20 mEq twice daily for 1 week, and he would like her to come by the office after the weekend for a repeat blood level. Discussed with the patient she is comfortable with that plan. Discharge Plan Triage Chief Complaint: Abn Labs ED Provider: Garrick France Dx/Rx/DC Orders Clinical Impression: Hypokalemia, Mild dehydration Instructions: ED Hypokalemia Prescriptions: New potassium chloride 20 mEq tablet extended release 20 meq PO BID Qty: 14 RF: 0 Continued amlodipine 10 mg tablet 10 mg PO DAILY RF: 0 hydrochlorothiazide 25 mg tablet 25 mg PO DAILY RF: 0 Primary Care Provider: Mark Phipps Referrals: Mark Phipps MD [Primary Care Provider] - 06/26/21 (Call today for specific appointment time, Dr. Phipps would like you to come by the office on Saturday for a repeat potassium level to be drawn) Disposition Disposition: Home, Self Care
[2021-06-23] MEDS: Potassium Chloride Oral Tablet 20 MEQ 40 MEQ PO (14:38)
[2021-06-23] MEDS: 0.9% Normal Saline 1,000 ML 999 ML IV (14:47)
[2021-06-23] MEDS: Potassium Chloride 10mEq/100mL 10 MEQ/100 ML IV.SOLN. 100 MEQ IV BOLUS ×2 (14:59→16:09)
[2021-06-23 15:34] VITALS: BP 118/68; PULSE 61; RESP 15
[2021-06-23 17:00] VITALS: PULSE 58
[2021-06-23 18:05] VITALS: BP 153/82; PULSE 61; RESP 13
[2021-06-23 18:06] VITALS: BP 153/82; PULSE 61
== END 2021-06-23 18:06 | disposition home or self-care (01) ==
PROVIDERS: Emergency Provider Emergency Medicine; PCP Family Medicine; Visit Provider Emergency Medicine
DX: E87.6 Hypokalemia (principal); E86.0 Dehydration; I10 Essential (primary) hypertension; Z79.899 Other long term (current) drug therapy
CPT/HCPCS: 96365; 96366; 99284; J7030; A4216

== ENCOUNTER 2021-06-26 07:37 | Outpatient (CLI) | payer OTHER, SELFPAY ==
[2021-06-26 10:28] LABS: Anion Gap 7 (5-15); BUN 22 mg/dL (7-18); BUN/Creat Ratio 32.6 RATIO (10-20); Calcium,Total 9.4 mg/dL (8.5-10.1); Chloride 107 mmol/L (98-107); Creatinine, Serum 0.68 mg/dL (0.55-1.02); EST Glomerular Filtration Rate 93 mL/min (>60); Est Glom Filt Rate - Afr Amer 113 mL/min (>60); Glucose 89 mg/dL (74-106); Potassium 3.7 mmol/L (3.5-5.1); Sodium Level 139 mmol/L (136-145)
== END 2021-06-26 23:59 | disposition home or self-care (01) ==
LOC: MTLAB 07:38
PROVIDERS: PCP Family Medicine; Referring Provider Family Medicine; Visit Provider Family Medicine
DX: E87.6 Hypokalemia (principal)
CPT/HCPCS: 36415; 80048

== ENCOUNTER → 2021-07-18 | Outpatient (CLI) | payer OTHER, SELFPAY ==
[2021-07-18 10:29] LABS: Potassium 3.1 mmol/L (3.5-5.1)
== END | disposition home or self-care (01) ==
LOC: MTLAB 07:22
PROVIDERS: PCP Family Medicine; Referring Provider Family Medicine; Visit Provider Family Medicine
DX: E87.6 Hypokalemia (principal)
CPT/HCPCS: 36415; 84132

== ENCOUNTER → 2021-08-09 | Outpatient (CLI) | payer OTHER, SELFPAY ==
[2021-08-09 10:15] LABS: Potassium 3.2 mmol/L (3.5-5.1)
== END | disposition home or self-care (01) ==
LOC: MFPLAB 08:36
PROVIDERS: PCP Family Medicine; Referring Provider Family Medicine; Visit Provider Family Medicine
DX: E87.5 Hyperkalemia (principal)
CPT/HCPCS: 36415; 84132

== ENCOUNTER → 2021-08-18 | Outpatient (CLI) | payer OTHER, SELFPAY ==
[2021-08-18 10:23] LABS: Potassium 3.2 mmol/L (3.5-5.1)
== END | disposition home or self-care (01) ==
LOC: MTLAB 07:26
PROVIDERS: PCP Family Medicine; Referring Provider Family Medicine; Visit Provider Family Medicine
DX: E87.6 Hypokalemia (principal)
CPT/HCPCS: 36415; 84132

== ENCOUNTER → 2021-09-11 | Outpatient (CLI) | payer OTHER, SELFPAY ==
[2021-09-11 10:55] LABS: BUN 19 mg/dL (7-18); Creatinine, Serum 0.75 mg/dL (0.55-1.02); Glucose 91 mg/dL (74-106)
[2021-09-11 10:56] LABS: Anion Gap 6 (5-15); BUN/Creat Ratio 25.3 RATIO (10-20); Calcium,Total 9.7 mg/dL (8.5-10.1); Chloride 108 mmol/L (98-107); EST Glomerular Filtration Rate 82 mL/min (>60); Est Glom Filt Rate - Afr Amer 100 mL/min (>60); Potassium 3.8 mmol/L (3.5-5.1); Sodium Level 139 mmol/L (136-145)
== END | disposition home or self-care (01) ==
LOC: MTLAB 07:20
PROVIDERS: PCP Family Medicine; Referring Provider Family Medicine; Visit Provider Family Medicine
DX: E87.6 Hypokalemia (principal)
CPT/HCPCS: 36415; 80048

== ENCOUNTER → 2021-10-16 | Outpatient (CLI) | payer OTHER, SELFPAY ==
[2021-10-16 10:39] LABS: Anion Gap 10 (5-15); BUN 19 mg/dL (7-18); BUN/Creat Ratio 27.7 RATIO (10-20); Calcium,Total 9.5 mg/dL (8.5-10.1); Chloride 105 mmol/L (98-107); Creatinine, Serum 0.68 mg/dL (0.55-1.02); EST Glomerular Filtration Rate 92 mL/min (>60); Est Glom Filt Rate - Afr Amer 111 mL/min (>60); Glucose 87 mg/dL (74-106); Potassium 3.9 mmol/L (3.5-5.1); Sodium Level 140 mmol/L (136-145)
== END | disposition home or self-care (01) ==
LOC: MTLAB 07:10
PROVIDERS: PCP Family Medicine; Referring Provider Nurse Practitioner Family; Visit Provider Nurse Practitioner Family
DX: E87.6 Hypokalemia (principal)
CPT/HCPCS: 36415; 80048

== ENCOUNTER → 2022-01-17 | Outpatient (CLI) | payer MEDICARE, SELFPAY ==
--- NOTE | 2022-01-17 07:08 | BI_ITS ---
MAMMOGRAPHY - BILATERAL SCREENING REASON FOR EXAM: Female, 66 years old. Routine annual screening examination. PERTINENT HISTORY: Sister with breast cancer. Mother with breast cancer. TECHNIQUE: Digital bilateral breast zuleyma (3D mammographic acquisition) in the CC and MLO projections. 2-D mediolateral oblique (MLO) and craniocaudad (CC) views of both breasts were obtained. CAD: Full Field Digital Mammography with Computer Added Detection was performed. COMPARISON: Comparison is made with prior study of 11/25/2020 and 12/10/2018 FINDINGS: Breast Composition: There are scattered areas of fibroglandular density. There are no dominant masses or suspicious calcifications. Stable small benign appearing bilateral axillary lymph nodes. No other significant abnormalities are identified. There has been no significant change since the prior study. BI/SCRN MAMM (CAD)W/ZULEYMA BILAT IMPRESSION: Stable bilateral screening mammogram. Yearly follow-up mammogram recommended. (A) ASSESSMENT CATEGORY: BIRADS Category 2: Benign. A letter regarding these results will be sent to the patient by the facility within 30 days. Approximately 10% of breast cancers are not detected by mammography. A normal mammogram should not delay biopsy of a clinically suspicious abnormality. [id number] Electronically Signed: Chintan Lopez MD at 8:41 EDT ,
== END | disposition home or self-care (01) ==
LOC: OPBI 07:05
PROVIDERS: PCP Family Medicine; Visit Provider Nurse Practitioner Family
DX: Z12.31 Encounter for screening mammogram for malignant neoplasm of breast (principal); Z80.3 Family history of malignant neoplasm of breast
CPT/HCPCS: 77063; 77067

== ENCOUNTER → 2022-01-26 | Outpatient (CLI) | payer MEDICARE, SELFPAY ==
--- NOTE | 2022-01-26 12:46 | US_ITS ---
STUDY: THYROID ULTRASOUND REASON FOR EXAM: Female, 66 years old. Nodule. TECHNIQUE: Ultrasound evaluation of the thyroid was performed with real-time and static parker-scale imaging. COMPARISON: February 25, 2020. FINDINGS: RIGHT LOBE: The right lobe of the thyroid gland measures 5.3 x 2.2 x 1.5 cm. There is a heterogeneous echotexture. In the lower pole there is a 2.0 x 1.8 x 1.1 cm isoechoic nodule. This is wider than it is tall. There is a small cystic area inferiorly with adjacent 2 mm calcification. Normal vascularity on Doppler imaging. LEFT LOBE: The left lobe of the thyroid gland measures 4.7 x 1.4 x 1.8 cm. There is a heterogeneous echotexture. The lower pole there is a 0.9 x 0.7 x 0.6 cm mildly hypoechoic nodule. This is well marginated and wider than it is tall. Normal vascularity on Doppler imaging. ISTHMUS: The isthmus measures 0.4 cm. The regional lymph nodes are normal. US/Thyroid IMPRESSION: 1. Prominent heterogenous thyroid. 2. Essentially stable soft tissue nodule in lower pole of the right thyroid. Despite its stability, this is staged as a moderate suspicious mass by TI-RADS categorization. FNA is recommended. 3. Stable small nodule in the left thyroid this is also considered moderately suspicious but no FNA or follow-up is required due to its small size. Electronically Signed: Marquise Cordova DO at 22:55 EDT ,
== END | disposition home or self-care (01) ==
LOC: US 12:45
PROVIDERS: PCP Family Medicine; Referring Provider Surgery; Visit Provider Surgery
DX: E04.1 Nontoxic single thyroid nodule (principal)
CPT/HCPCS: 76536

== ENCOUNTER → 2022-02-07 | Outpatient (CLI) | payer MEDICARE, SELFPAY ==
--- NOTE | 2022-02-07 11:10 | ASPS_PTH ---
PATIENT: ROCKY MORRISON LOC: [facility] U#:[id number] AGE/SX: 66/F ROOM: RE02/07/[address]: Dr. Sandip Raman MD : [id number] BED: DIS: 02/07/2022 SPEC #: [id number] RECD: 02/07/22 16:43 STATUS: ÁNGELA MEETA #: [id number] CONNOR: 02/07/22 11:[address]: Sandip Raman DEPT: CYTOLOGY RECD BY: Sylvia Goodman ENTERED: 02/08/22 07:54 SP TYPE: ASPIRATION OTHR DR: Dr. Mark Phipps MD Tissues: Thyroid gland, NOS Procedures: Special Stain Group II Cytology Other HEADER OPERATION: Right thyroid FNA PRE-OP DIAGNOSIS: Right thyroid nodule TISSUE SUBMITTED: Right thyroid nodule, slides DIAGNOSIS CYTOLOGY Right thyroid nodule, FNA (smears): Consistent with benign follicular/colloid nodule with cystic changes ([place] category II). Adequate for evaluation. /PETRA 02/08/22 COMMENT Immediate cytologic evaluation to determine adequacy is not applicable. Correlation with clinical, radiologic findings and appropriate follow up are necessary. CYTOLOGY STUDY Slides are reviewed. CYTOLOGY GROSS Received are 8 smears labeled with the patient's name and designated per the requisition as Right thyroid nodule FNA. Submitted for staining. /JAZIEL:shantelle 02/08/2022 TC:5 CPT: 39400
== END | disposition home or self-care (01) ==
LOC: LABSPEC 16:53
PROVIDERS: PCP Family Medicine; Visit Provider Surgery
DX: E04.1 Nontoxic single thyroid nodule (principal)
CPT/HCPCS: 88161; 88313

== ENCOUNTER → 2022-04-11 | Outpatient (CLI) | payer MEDICARE, SELFPAY ==
[2022-04-11 16:08] LABS: Bacteria 0 SEEN /hpf (None Seen); Mucous, Urine 0 SEEN /hpf (<or=2+); Red Blood Cells-Urine 0 SEEN /hpf (0-5); Squamous Epithelial Cells - UA 0 SEEN /hpf (5-10); White Blood Cells 0 SEEN /hpf (0-5)
[2022-04-11 17:57] LABS: Absolute Lymphocyte Count 2.79 X10^3/uL (0.83-4.51); Absolute Neutrophil Count 4.2 X10^3/uL (2.0-7.7); Basophil# 0.04 X10^3/uL; Basophil% 0.5 % (0-1); Eosinophil# 0.88 X10^3/uL; Eosinophils% 10.1 % (0-5); Lymphocyte # 2.79 X10^3/ul (0.83-4.51); Mean Corp Hgb Conc 33.3 g/dL (32-36); Mean Corpuscular Hgb 29.8 pg (27.0-32.0); Mean Corpuscular Volume 89.4 fL (81-99); Mean Platelet Vol. 10.2 fl (6.2-12.0); Monocyte# 0.76 X10^3/uL; Monocyte% 8.7 % (0-10); NRBC Flagged by Analyzer 0 % (0-5); Neutrophil # 4.22 X10^3/uL (2.7-7.7); Neutrophil % 48.5 % (47-70); Platelet Count 251 K/mm3 (150-450); RBC Distribution Width CV 12.8 % (11.6-14.6); White Blood Count 8.7 K/mm3 (4.4-11.0)
[2022-04-11 18:14] LABS: Color, Urine Yellow (Yellow); Glucose, Dipstick Normal (Normal); Ketone-Dipstick Negative (Negative); Leukocyte Esterase-Dipstick Negative /ul (Negative); Nitrite-Dipstick Negative (Negative); Occult Blood-Urine Negative /ul (Negative); Protein-Dipstick Negative (Negative); Specific Gravity, Urine 1.025 (1.002-1.030); Urine Bilirubin Dipstick Negative (Negative); Urine Clarity Clear (Clear); Urine Urobilinogen Normal (Normal)
[2022-04-11 18:39] LABS: AST(SGOT) 15 U/L (15-37); Alanine Aminotransfer ALT/SGPT 25 U/L (13-56); Albumin, Serum 3.8 g/dL (3.2-5.0); Alkaline Phosphatase 99 U/L (45-117); Anion Gap 10 (5-15); BUN 24 mg/dL (7-18); BUN/Creat Ratio 37.2 RATIO (10-20); Calcium,Total 9.3 mg/dL (8.5-10.1); Chloride 107 mmol/L (98-107); Cholesterol 196 mg/dL (200); Creatinine, Serum 0.65 mg/dL (0.55-1.02); EST Glomerular Filtration Rate 98 mL/min (>60); Est Glom Filt Rate - Afr Amer 118 mL/min (>60); Globulin 3.7 g/dL (2.2-4.2); Glucose 102 mg/dL (74-106); High Density Lipoprotein 74 mg/dL; Magnesium 2.1 mg/dL (1.6-2.6); Potassium 3.6 mmol/L (3.5-5.1); Protein, Total 7.5 g/dL (6.4-8.2); Sodium Level 140 mmol/L (136-145); T4 Free Direct 1.03 ng/dL (0.76-1.46); Thyroid Stim Hormone (TSH) 3.69 uIU/mL (0.358-3.74); Triglycerides 187 mg/dL; Very Low Density Lipoprotein 37 mg/dL (5-40)
[2022-04-11 18:40] LABS: Hemoglobin A1c 5.6 % (3.8-5.6)
== END | disposition home or self-care (01) ==
LOC: MFPLAB 16:05
PROVIDERS: PCP Family Medicine; Visit Provider Family Medicine
DX: I10 Essential (primary) hypertension (principal); R73.02 Impaired glucose tolerance (oral); E06.3 Autoimmune thyroiditis
CPT/HCPCS: 36415; 80053; 80061; 81001; 83036; 83735; 84439; 84443; 85025

== ENCOUNTER 2022-09-19 18:30 | Outpatient (RCR) | payer MEDICARE, SELFPAY ==
--- NOTE | 2022-08-08 16:03 | HP.PTEVAL_ITS ---
Patient's Visit Information ROCKY MORRISON is a 66 year old F referred to Physical Therapy by PHILIP Garzon with a diagnosis of piriformis syndrome. Date of Evaluation: 08/08/22 Physical Therapist: ADRIANE Zendejas - Visit Plan Frequency: 2x /Week Duration: 6 Weeks Plan: Thinking Spinal Stenosis. 2X/ week for 6 weeks for AT for deep water hang, core strength, hip strength, gastroc stretching, gait training with HEP. HEP: pt will try repeated flexion in sitting to see if it helps to relieve her L LE sx at home and report back - Subjective Pt has been having pain in her L leg, back and hip and she can not be on her feet very long. It aches at night and she can not turn over in bed. She also has it on the R but the L is the worst. She has LBP and hip pain. She has had knee problems in the past and has had injections. This has been going on for several months. She can sit for a little while but has to stand for a little bit before she can walk. sitting is ok. Walking kills her and she can walk for about 1/2 hour before it starts to hurt. It will start to hurt in the puente and then behind the knee on the L. She does not do any stretches or exercises for it. The pain a deep ache. It is relieved by sitting or lay down. She take IBprof some but does not help for hours. Stairs: she goes 2 feet to a step with a railing. - Pain L lower leg pain Pain Intensity (Out of 10): 6 Pain Intensity Range: 9 - Objective Gait: Walks with decrease stance time on the L LE and some trunk shift to the right to get pressure off the L. sit to stand: has to use arms to get out of a chair. No pain with palpation on the L puente or calf or behind the L knee. LE MMT. R hip 10.1 and L 9.7. R knee ext 16.8 and L 16.7. R knee flex 11.3 and L 9.9. R hip abd 11.6 and L 12.5. Piriformis length: Good B and does not cause her pain in her lower leg. Bridgin/2 normal ROM bridge. heel and toe raises: Pt is able to heel and toe raise about 1/2 normal ROM. Had the pt walk around for a little bit to get her L LE pain to start and then did repeated flexion in sitting and it helped to relieve the pain some. +SLUMP test on the L only. Tight gastroc B - Balance/Special Test Scores Lower Extremity Functional Score: 37 - Goals Goal 1:: I HEP Goal Time Frame: 4-6 Weeks Goal 2:: Decrease L LE symptoms by 50% with walking Goal Time Frame: 4-6 Weeks Goal 3:: Be able to walk in the grocery store without having to lean over the shopping cart Goal Time Frame: 4-6 Weeks Goal 4:: Increase LE strength (at the eval MMT: R hip 10.1 and L 9.7. R knee ext 16.8 and L 16.7. R knee flex 11.3 and L 9.9. R hip abd 11.6 and L 12.5). Goal Time Frame: 4-6 Weeks - Rehabilitation Potential Physical Therapy Diagnosis: Questionable spinal stenosis or radiculopathy Rehabilitation Potential: Good - Anticipated Interventions Patient/Client Instruction: Educate patient on: Condition, Plan of Care For the Purpose of:: To decrease pain, To improve nutrient delivery to tissue, To improve muscle performance and motor function, To improve ability to perform ADL's, To increase tolerance to activity/condition/position, To improve perfor delfina and independence with ADL's, To decrease level of supervision to perform tasks, To improve ability of physical actions for home/community/work/leisure, To improve gait and locomotor functions, To improve health of tissue, To decrease soft tissue restriction, To increase flexibility/ROM Therapeutic Exercise to Include: Strength training, Body mechanics, Postural training, Flexibilty training, In an aquatic setting, Active ROM, Dynamic Lumbar Stabilization For the Purpose of:: To decrease pain, To increase ROM, To improve muscle performance and motor function, To improve ability to perform ADL's, To increase tolerance to activity/condition/position, To improve performance and independence with ADL's, To decrease level of supervision to perform tasks, To improve ability of physical actions for home/community/work/leisure, To improve gait and locomotor functions, To improve health of tissue, To decrease soft tissue restriction, To increase flexibility/ROM Thank you for the opportunity to evaluate your patient. For Medicare and Medicare HMO plans, please review the plan of care and approve it. It will need to be FAXED BACK to us at [phone] for Medicare purposes. For Medicare only, by signing this I certify the plan of care. Please let me know if there are questions or concerns regarding this plan of care. Physician Signature: Date:
--- NOTE | 2022-09-19 18:47 | HP.PTDCSUM_ITS ---
Discharge Summary D/C summary: It has been my pleasure to treat ROCKY MORRISON referred by Cheryl Ruiz NP-C, with the diagnosis of piriformis syndrome for a total of 9 visit(s). Discharge Date: 09/19/22 Please see the following information for a summary of their discharge status. Subjective Subjective: Pt felt better most times in the water. She still has her constant pain. 3 times when she left the water she hurt so bad she was not sure she was going to make it to her car. Now she is also having pain behind her knees since water therapy. Pt will go back to her PCP (Leticia) soon. She now has B ankle swelling that she needs to talk to the Dr about. Pain L lower leg pain: Pain Intensity (Out of 10): 3 Low Back: Pain Intensity (Out of 10): 0 Overall Improvement % Improvement: 0 Objective Objective/Function: R hip 13.6 and L 13.1 R knee ext 25.4 and L 19.7 R knee flex 14.1 and L 92.4 R hip abd 16.4 and L 16.4. Gait: Walks with decrease stance time especially on the L LE with increase lateral shifting of the hips with gait and decrease step length Goals Goal 1:: I HEP Goal Progress: Progressing Goal 2:: Decrease L LE symptoms by 50% with walking Goal Progress: Not Progressing Goal 3:: Be able to walk in the grocery store without having to lean over the shopping cart Goal Progress: Not Progressing Goal 4:: Increase LE strength (at the eval MMT: R hip 10.1 and L 9.7 R knee ext 16.8 and L 16.7 R knee flex 11.3 and L 9.9 R hip abd 11.6 and L 12.5). Goal Progress: Goal Met Plan Plan: DC PT and return back to Dr and back and hip pain are no better and now she is having B ankle swelling. She also reports that there were times that she was almost unable to walk back to the car after a few AT sessions D/C Information Discharge Comments: DC PT back to physician for reassessment d/c sentence: If there are questions or concerns regarding this patient's physical therapy, pl ease feel free to call me at [phone]. Thank you for the referral of this patient. Sincerely, Shirley Stoner, MPT Balance/Gait/Functional tests Balance/Special Test Scores Lower Extremity Functional Score: 32
--- NOTE | 2022-12-24 15:10 | HP.PTDCSUM ---
Discharge Summary D/C summary: It has been my pleasure to treat ROCKY MORRISON referred by Cheryl Ruiz NP-C, with the diagnosis of piriformis syndrome for a total of 9 visit(s). Discharge Date: 09/19/22 Please see the following information for a summary of their discharge status. Subjective Subjective: Pt felt better most times in the water. She still has her constant pain. 3 times when she left the water she hurt so bad she was not sure she was going to make it to her car. Now she is also having pain behind her knees since water therapy. Pt will go back to her PCP (Leticia) soon. She now has B ankle swelling that she needs to talk to the Dr about. Pain L lower leg pain: Pain Intensity (Out of 10): 3 Low Back: Pain Intensity (Out of 10): 0 Overall Improvement % Improvement: 0 Objective Objective/Function: R hip 13.6 and L 13.1 R knee ext 25.4 and L 19.7 R knee flex 14.1 and L 92.4 R hip abd 16.4 and L 16.4. Gait: Walks with decrease stance time especially on the L LE with increase lateral shifting of the hips with gait and decrease step length Goals Goal 1:: I HEP Goal Progress: Progressing Goal 2:: Decrease L LE symptoms by 50% with walking Goal Progress: Not Progressing Goal 3:: Be able to walk in the grocery store without having to lean over the shopping cart Goal Progress: Not Progressing Goal 4:: Increase LE strength (at the eval MMT: R hip 10.1 and L 9.7 R knee ext 16.8 and L 16.7 R knee flex 11.3 and L 9.9 R hip abd 11.6 and L 12.5). Goal Progress: Goal Met Plan Plan: DC PT and return back to Dr and back and hip pain are no better and now she is having B ankle swelling. She also reports that there were times that she was almost unable to walk back to the car after a few AT sessions D/C Information Discharge Comments: DC PT back to physician for reassessment d/c sentence: If there are questions or concerns regarding this patient's physical therapy, please feel free to call me at [phone]. Thank you for the referral of this patient. Sincerely, Shirley Caldwell, MPT Balance/Gait/Functional tests Balance/Special Test Scores Lower Extremity Functional Score: 32 Improvement % Improvement: 0
== END 2022-09-19 19:00 | disposition home or self-care (01) ==
LOC: PT 18:30
PROVIDERS: PCP Family Medicine; Referring Provider Nurse Practitioner Family; Visit Provider Nurse Practitioner Family
DX: G57.00 Lesion of sciatic nerve, unspecified lower limb (principal)
CPT/HCPCS: 97113; 97161; 97530

== ENCOUNTER → 2022-10-18 | Outpatient (CLI) | payer MEDICARE, SELFPAY ==
--- NOTE | 2022-10-18 09:00 | RAD_ITS ---
EXAM: XR LUMBOSACRAL SPINE, 2 OR 3 VIEWS CLINICAL INDICATION: pain TECHNIQUE: Frontal and lateral views of the lumbar spine and sacrum. COMPARISON: No relevant prior studies available. FINDINGS: VERTEBRAE: Unremarkable. Preserved vertebral body height. No fracture. No spondylolisthesis. Preservation of the normal lumbar lordosis. No significant facet arthropathy. DISC SPACES: Degenerative changes of the intervertebral discs. GASTROINTESTINAL TRACT: Unremarkable as visualized. Included bowel gas pattern is non-obstructive. RAD/Lumbar Spine 2 or 3 Views IMPRESSION: 1. No acute injuries identified involving the lumbar spine. 2. Degenerative changes. Electronically Signed: Leobardo Sood MD at 0:30 EDT ,
== END | disposition home or self-care (01) ==
LOC: MTRAD 08:57
PROVIDERS: PCP Family Medicine; Visit Provider Family Medicine
DX: M54.16 Radiculopathy, lumbar region (principal)
CPT/HCPCS: 72100

== ENCOUNTER → 2022-10-30 | Outpatient (CLI) | payer MEDICARE, SELFPAY ==
--- NOTE | 2022-10-30 08:55 | BD_ITS ---
STUDY: DUAL ENERGY X-RAY ABSORPTIOMETRY / DXA REASON FOR EXAM: Female, 66 years old. [id number] TECHNIQUE: Bone Mineral Density (BMD) measurements of lumbar spine and bilateral hips were obtained. COMPARISON: None. FINDINGS: Lumbar Spine (L1-L4): g/cm2 (0.953) / T-score (-1.0) / Z-score (0.9) Findings are suggestive of osteopenia with a low fracture risk. Left Femur Total: g/cm2 (0.862) / T-score (-0.7) / Z-score (0.6) Left Femoral Neck: g/cm2 (0.790) / T-score (-0.5) / Z-score (1.0) Right Femur Total: g/cm2 (0.820) / T-score (-1.0) / Z-score (0.3) Right Femoral Neck: g/cm2 (0.750) / T-score (-0.9) / Z-score (0.7) BD/Dexa Bone Density Study IMPRESSION: The patient is considered normal as outlined below according to World [employer] Organization (WHO) criteria with a low fracture risk. Reference Information: The T-score is the number of standard deviations above or below the standard which is normal for young adults at their peak bone mineral density. The World Health Organization (WHO) interprets the T-scores as follows: Above -1 Normal bone density Between -1 and -2.5 Osteopenia Equal to / or below -2.5 Osteoporosis As a practical clinical guideline, osteopenia may be graded as follows: Mild -1 through -1.5 Moderate -1.6 through -2.0 Severe -2.1 through -2.4 The Z-score is the number of standard deviations above or below age-matched controls. A Z-score of less than -1.5 would be considered abnormal. References: 1. NIH Osteoporosis and Related Bone Diseases www osteo.org 2. International Society for Clinical Densitometry www iscd.org 3. National Osteoporosis Foundation www nof.org Electronically Signed: Chintan Lopez MD at 9:12 EDT ,
== END | disposition home or self-care (01) ==
LOC: OPBD 08:49
PROVIDERS: PCP Family Medicine; Referring Provider Family Medicine; Visit Provider Family Medicine
DX: Z13.820 Encounter for screening for osteoporosis (principal); Z78.0 Asymptomatic menopausal state
CPT/HCPCS: 77080

== ENCOUNTER → 2022-11-29 | Outpatient (CLI) | payer MEDICARE, SELFPAY ==
[2022-11-29 15:32] LABS: Absolute Neutrophil Count 4.5 X10^3/uL (2.0-7.7); Basophil# 0.03 X10^3/uL; Basophil% 0.3 % (0-1); Eosinophil# 0.54 X10^3/uL; Eosinophils% 6.2 % (0-5); Hematocrit 42.1 % (37-47); Hemoglobin 13.7 g/dL (12.0-15.0); Lymphocyte % 30.9 % (19-41); Mean Corp Hgb Conc 32.5 g/dL (32-36); Mean Corpuscular Hgb 29.4 pg (27.0-32.0); Mean Corpuscular Volume 90.3 fL (81-99); Mean Platelet Vol. 10.2 fl (6.2-12.0); Monocyte# 0.93 X10^3/uL; Monocyte% 10.7 % (0-10); NRBC Flagged by Analyzer 0 % (0-5); Neutrophil # 4.51 X10^3/uL (2.7-7.7); Neutrophil % 51.7 % (47-70); Platelet Count 245 K/mm3 (150-450); RBC Distribution Width SD 42.7 fl (35.1-43.9); Red Blood Count 4.66 M/mm3 (4.2-5.4); White Blood Count 8.7 K/mm3 (4.4-11.0)
[2022-11-29 15:45] LABS: Hemoglobin A1c 5.7 % (3.8-5.6)
[2022-11-29 16:08] LABS: Vitamin D,25 Hydroxy 40.4 ng/mL
[2022-11-29 16:13] LABS: ALB/GLOB Ratio 0.9 RATIO (0.9-2.4); AST(SGOT) 21 U/L (15-37); Alanine Aminotransfer ALT/SGPT 23 U/L (13-56); Albumin, Serum 3.5 g/dL (3.2-5.0); Alkaline Phosphatase 117 U/L (45-117); Anion Gap 6 (5-15); BUN 25 mg/dL (7-18); BUN/Creat Ratio 39.4 RATIO (10-20); Calcium,Total 9.3 mg/dL (8.5-10.1); Chloride 110 mmol/L (98-107); Cholesterol 199 mg/dL (200); Creatinine, Serum 0.64 mg/dL (0.55-1.02); EST Glomerular Filtration Rate 100 mL/min (>60); Est Glom Filt Rate - Afr Amer 121 mL/min (>60); Glucose 92 mg/dL (74-106); High Density Lipoprotein 64 mg/dL; Potassium 4.1 mmol/L (3.5-5.1); Protein, Total 7.5 g/dL (6.4-8.2); Sodium Level 137 mmol/L (136-145); T4 Free Direct 0.97 ng/dL (0.76-1.46); Triglycerides 165 mg/dL; Very Low Density Lipoprotein 33 mg/dL (5-40)
== END | disposition home or self-care (01) ==
LOC: MFPLAB 13:41
PROVIDERS: PCP Family Medicine; Visit Provider Family Medicine
DX: I10 Essential (primary) hypertension (principal); M85.80 Other specified disorders of bone density and structure, unspecified site; R73.02 Impaired glucose tolerance (oral)
CPT/HCPCS: 36415; 80053; 80061; 82306; 83036; 84439; 84443; 85025

== ENCOUNTER → 2023-01-18 | Outpatient (CLI) | payer MEDICARE, SELFPAY ==
--- NOTE | 2023-01-18 08:57 | BI_ITS ---
MAMMOGRAPHY - BILATERAL SCREENING REASON FOR EXAM: Female, 67 years old. Routine annual screening examination. PERTINENT HISTORY: Sister with breast cancer. Mother with breast cancer. TECHNIQUE: Digital bilateral breast zuleyma (3D mammographic acquisition) in the CC and MLO projections. 2-D mediolateral oblique (MLO) and craniocaudad (CC) views of both breasts were obtained. CAD: Full Field Digital Mammography with Computer Added Detection was performed. COMPARISON: Comparison is made with prior study January 17, 2022 and November 25, 2020. FINDINGS: Breast Composition: There are scattered areas of fibroglandular density. There are no dominant masses or suspicious calcifications. Stable small benign-appearing bilateral axillary lymph nodes. No other significant abnormalities are identified. There has been no significant change since the prior study. BI/SCRN MAMM (CAD)W/ZULEYMA BILAT IMPRESSION: Stable bilateral screening mammogram. Yearly follow-up mammogram recommended. (A) ASSESSMENT CATEGORY: BIRADS Category 2: Benign. A letter regarding these results will be sent to the patient by the facility within 30 days. Approximately 10% of breast cancers are not detected by mammography. A normal mammogram should not delay biopsy of a clinically suspicious abnormality. [id number] Electronically Signed: Chintan Lopez MD at 10:01 EDT ,
== END | disposition home or self-care (01) ==
LOC: OPBI 08:56
PROVIDERS: PCP Family Medicine; Referring Provider Family Medicine; Visit Provider Family Medicine
DX: Z12.31 Encounter for screening mammogram for malignant neoplasm of breast (principal); Z80.3 Family history of malignant neoplasm of breast
CPT/HCPCS: 77063; 77067

== ENCOUNTER → 2023-04-09 | Outpatient (CLI) | payer MEDICARE, SELFPAY ==
[2023-04-09 08:33] LABS: Bacteria 0 SEEN /hpf (None Seen); Mucous, Urine 0 SEEN /hpf (<or=2+); Red Blood Cells-Urine 0 SEEN /hpf (0-5)
--- OUTSIDE RECORDS SUMMARY | 2023-04-09 08:51 | XMS RPT_ITS | CCD ---
Author Name Unknown Address [address] [place] [address] Organization [facility] Results Test Name Value Interpretation Reference Range Facil ity Summary Purpose Family History No Family History Records Found Advance Directives No Advanced Directives Records Found Additional Source Comments INFORMATION SOURCE (unrecogn ized section and content) FOR RECORDS PERTAINING TO PATIENTS WHO ARE OR HAVE BEEN ENROLLED IN A CHEMICAL DEPENDENCY/SUBSTANCEABUSE PROGRAM, SOME INFORMATION MAY BE OMITTED. This clinical summary was aggregated from multiple sources. Caution should be exercised in using it in the provision of clinical care. This summary normalizes information from multiple sources, and as a consequence, information in this document may materially change the coding, format and clinical context of patient data. In addition, data may be omitted in some cases. CLINICAL DECISIONS SHOULD BE BASED ON THE PRIMARY CLINICAL RECORDS. [employer] provides no warranty or guarantee of the accuracy or completeness of information in this document.
[2023-04-09 10:00] LABS: Absolute Lymphocyte Count 1.74 X10^3/uL (0.83-4.51); Absolute Neutrophil Count 5.7 X10^3/uL (2.0-7.7); Basophil# 0.04 X10^3/uL; Basophil% 0.5 % (0-1); Eosinophil# 0.29 X10^3/uL; Eosinophils% 3.4 % (0-5); Hematocrit 45.2 % (37-47); Hemoglobin 14.7 g/dL (12.0-15.0); Lymphocyte # 1.74 X10^3/ul (0.83-4.51); Lymphocyte % 20.7 % (19-41); Mean Corp Hgb Conc 32.5 g/dL (32-36); Mean Corpuscular Hgb 29.5 pg (27.0-32.0); Mean Corpuscular Volume 90.6 fL (81-99); Mean Platelet Vol. 9.7 fl (6.2-12.0); Monocyte# 0.65 X10^3/uL; Monocyte% 7.7 % (0-10); NRBC Flagged by Analyzer 0 % (0-5); Neutrophil # 5.67 X10^3/uL (2.7-7.7); Neutrophil % 67.3 % (47-70); Platelet Count 248 K/mm3 (150-450); RBC Distribution Width CV 13.5 % (11.6-14.6); Red Blood Count 4.99 M/mm3 (4.2-5.4); White Blood Count 8.4 K/mm3 (4.4-11.0)
[2023-04-09 10:13] LABS: Color, Urine Yellow (Yellow); Glucose, Dipstick Normal (Normal); Ketone-Dipstick Negative (Negative); Leukocyte Esterase-Dipstick 25 /ul (Negative); Nitrite-Dipstick Negative (Negative); Occult Blood-Urine Negative /ul (Negative); Protein-Dipstick Negative (Negative); Urine Bilirubin Dipstick Negative (Negative); Urine Clarity Sl. Cloudy (Clear); Urine Urobilinogen Normal (Normal)
[2023-04-09 10:20] LABS: Squamous Epithelial Cells - UA 0-5 SEEN /hpf (5-10); White Blood Cells 0-5 SEEN /hpf (0-5)
[2023-04-09 10:41] LABS: Vitamin D,25 Hydroxy 40.3 ng/mL
[2023-04-09 11:06] LABS: AST(SGOT) 15 U/L (15-37); Alanine Aminotransfer ALT/SGPT 23 U/L (13-56); Albumin, Serum 3.8 g/dL (3.2-5.0); Alkaline Phosphatase 110 U/L (45-117); Anion Gap 7 (5-15); BUN 18 mg/dL (7-18); BUN/Creat Ratio 27.5 RATIO (10-20); Calcium,Total 9.9 mg/dL (8.5-10.1); Chloride 109 mmol/L (98-107); Cholesterol 213 mg/dL (200); Creatinine, Serum 0.66 mg/dL (0.55-1.02); EST Glomerular Filtration Rate 96 mL/min (>60); Est Glom Filt Rate - Afr Amer 116 mL/min (>60); Glucose 107 mg/dL (74-106); High Density Lipoprotein 65 mg/dL; Magnesium 2.5 mg/dL (1.6-2.6); Potassium 3.9 mmol/L (3.5-5.1); Protein, Total 7.8 g/dL (6.4-8.2); Sodium Level 138 mmol/L (136-145); T4 Free Direct 1.02 ng/dL (0.76-1.46); Thyroid Stim Hormone (TSH) 4.01 uIU/mL (0.358-3.74); Triglycerides 178 mg/dL; Very Low Density Lipoprotein 36 mg/dL (5-40)
[2023-04-09 11:17] LABS: Hemoglobin A1c 5.5 % (3.8-5.6)
== END | disposition home or self-care (01) ==
LOC: MTLAB 08:27
PROVIDERS: PCP Family Medicine; Referring Provider Family Medicine; Visit Provider Family Medicine
DX: I10 Essential (primary) hypertension (principal); E06.3 Autoimmune thyroiditis; M85.80 Other specified disorders of bone density and structure, unspecified site; R73.02 Impaired glucose tolerance (oral)
CPT/HCPCS: 36415; 80053; 80061; 81001; 82306; 83036; 83735; 84439; 84443; 85025

== ENCOUNTER → 2023-10-22 | Outpatient (CLI) | payer MEDICARE, SELFPAY ==
[2023-10-22 09:56] LABS: Red Blood Cells-Urine 0 SEEN /hpf (0-5); Squamous Epithelial Cells - UA 0 SEEN /hpf (5-10)
[2023-10-22 12:28] LABS: Color, Urine Yellow (Yellow); Glucose, Dipstick Normal (Normal); Ketone-Dipstick Negative (Negative); Leukocyte Esterase-Dipstick 500 /ul (Negative); Nitrite-Dipstick Negative (Negative); Occult Blood-Urine Negative /ul (Negative); Protein-Dipstick Negative (Negative); Urine Bilirubin Dipstick Negative (Negative); Urine Clarity Clear (Clear); Urine Urobilinogen Normal (Normal)
[2023-10-22 12:34] LABS: Absolute Neutrophil Count 4.7 X10^3/uL (2.0-7.7); Basophil# 0.04 X10^3/uL; Basophil% 0.5 % (0-1); Eosinophil# 0.45 X10^3/uL; Eosinophils% 5.7 % (0-5); Hemoglobin 13.8 g/dL (12.0-15.0); Lymphocyte % 25.4 % (19-41); Mean Corp Hgb Conc 32.1 g/dL (32-36); Mean Corpuscular Hgb 29.5 pg (27.0-32.0); Mean Corpuscular Volume 91.9 fL (81-99); Mean Platelet Vol. 10.2 fl (6.2-12.0); Monocyte# 0.67 X10^3/uL; Monocyte% 8.5 % (0-10); NRBC Flagged by Analyzer 0 % (0-5); Neutrophil % 59.6 % (47-70); Platelet Count 239 K/mm3 (150-450); RBC Distribution Width CV 13.3 % (11.6-14.6); RBC Distribution Width SD 45.4 fl (35.1-43.9); Red Blood Count 4.68 M/mm3 (4.2-5.4); White Blood Count 7.9 K/mm3 (4.4-11.0)
[2023-10-22 12:46] LABS: Vitamin D,25 Hydroxy 35.2 ng/mL
[2023-10-22 12:52] LABS: Bacteria RARE /hpf (None Seen); Mucous, Urine RARE /hpf (<or=2+); White Blood Cells 0-5 SEEN /hpf (0-5)
[2023-10-22 12:53] LABS: AST(SGOT) 19 U/L (15-37); Alanine Aminotransfer ALT/SGPT 21 U/L (13-56); Albumin, Serum 3.7 g/dL (3.2-5.0); Alkaline Phosphatase 105 U/L (45-117); Anion Gap 8 (5-15); BUN 17 mg/dL (7-18); BUN/Creat Ratio 23.3 RATIO (10-20); Calcium,Total 9.6 mg/dL (8.5-10.1); Chloride 108 mmol/L (98-107); Cholesterol 199 mg/dL (200); Creatinine, Serum 0.73 mg/dL (0.55-1.02); EST Glomerular Filtration Rate 85 mL/min (>60); Est Glom Filt Rate - Afr Amer 103 mL/min (>60); Globulin 3.8 g/dL (2.2-4.2); Glucose 100 mg/dL (74-106); High Density Lipoprotein 66 mg/dL; Magnesium 2.3 mg/dL (1.6-2.6); Potassium 3.8 mmol/L (3.5-5.1); Protein, Total 7.5 g/dL (6.4-8.2); Sodium Level 139 mmol/L (136-145); Thyroid Stim Hormone (TSH) 3.29 uIU/mL (0.358-3.74); Triglycerides 114 mg/dL; Very Low Density Lipoprotein 23 mg/dL (5-40)
[2023-10-22 14:07] LABS: Hemoglobin A1c 5.5 % (3.8-5.6)
== END | disposition home or self-care (01) ==
LOC: MFPLAB 09:54
PROVIDERS: PCP Family Medicine; Visit Provider Family Medicine
DX: I10 Essential (primary) hypertension (principal); R73.02 Impaired glucose tolerance (oral); M85.80 Other specified disorders of bone density and structure, unspecified site
CPT/HCPCS: 36415; 80053; 80061; 81001; 82306; 83036; 83735; 84443; 85025

== ENCOUNTER → 2024-01-21 | Outpatient (CLI) | payer MEDICARE, SELFPAY ==
--- NOTE | 2024-01-21 07:16 | BI_ITS ---
MAMMOGRAPHY - BILATERAL SCREENING REASON FOR EXAM: Female, 68 years old. Routine annual screening examination. PERTINENT HISTORY: Sister with breast cancer. Mother with breast cancer. TECHNIQUE: Digital bilateral breast zuleyma (3D mammographic acquisition) in the CC and MLO projections. 2-D mediolateral oblique (MLO) and craniocaudad (CC) views of both breasts were obtained. CAD: Full Field Digital Mammography with Computer Added Detection was performed. COMPARISON: Comparison is made with prior study January 18, 2023 and January 17, 2022. FINDINGS: Breast Composition: There are scattered areas of fibroglandular density. There are no dominant masses or suspicious calcifications. Stable fat-containing left axial lymph node. No other significant abnormalities are identified. There has been no significant change since the prior study. BI/SCRN MAMM (CAD)W/ZULEYMA BILAT IMPRESSION: Stable bilateral screening mammogram. Yearly follow-up mammogram recommended. (A) ASSESSMENT CATEGORY: BIRADS Category 2: Benign. A letter regarding these results will be sent to the patient by the facility within 30 days. Approximately 10% of breast cancers are not detected by mammography. A normal mammogram should not delay biopsy of a clinically suspicious abnormality. [id number] Electronically Signed: Chintan Lopez MD at 11:30 EDT ,
--- OUTSIDE RECORDS SUMMARY | 2024-01-21 07:17 | XMS RPT_ITS | CCD ---
Author Organization [facility] Results Test Name Value Interpretation Reference Range Jaison shook PROGRESSon 05-08-2018 Protein mass conc HNO ID: [id number] Author: Good Casas Service: (none) Author Type: Environmental Aid Type: Progress Notes Filed: 05/08/2018 2:01 PM Note Text: [facility] STONE DECORATOR QUICKNOTE Provider Action/FYI: I spoke with abbe and she states she had to get a new doctor because we aren't accepting her new insurance. Dr. bennett removed as pcp. Patient identified by name and . Good Casas CMA [facility] PROGRESSon 05-06-2018 Protein mass conc HNO ID: [id number] Author: Good Casas Service: (none) Author Type: Environmental Aid Type: Progress Notes Filed: 05/08/2018 2:01 PM Note Text: [facility] STONE DECORATOR QUICKNOTE Provider Action/FYI: Patient identified by name and . 2nd attempt - Left message for patient to return call #[phone] Good Casas CMA [facility] CNPTOUTREACHon 05-01-2018 CNPTOUTREA Patient Outreach (INTMWS) ABBE MORIRSON ([id number]) 1955 F Date Time Provider Department 05/01/18 GOOD CASAS) INTMWS During your visit today, we recorded the following information about you: Good Casas CMA 05/08/2018 2:01 PM Signed PHMA TEAMLET DOCUMENTATION Provider Action/FYI: PSR Action/FYI: Physical appointment Health Maintenance Due: ANNUAL PCP TEAM CHRONIC DISEASE VISIT due on 1974 ONE PNEUMOVAX PRIOR TO AGE 66 due on 12/17/1975 HEPATITIS C SCREENING due on 2000 MAMMOGRAM due on 06/21/2017 INFLUENZA(1) due on 11/23/2017 Teamlet has identified patient by name and date of . Team: Dr. Tam Stephen ? Last Office Visit:Visit date not found ? Next Office Visit: Visit date not found ? Last BP/Labs: Blood Pressure: Last 3 Encounter BP Readings: Date: BP: 09/28/2016 117/68[#6 (from Extended Vitals)[ 09/26/2016 122/84 09/13/2016 145/82 Lipids: Cholesterol, Total (mg/dL) Date Value 06/15/2016 204 10/08/2014 205 HDL Cholesterol (mg/dL) Date Value 06/15/2016 73 10/08/2014 83 LDL Cholesterol (mg/dL) Date Value 06/15/2016 115 10/08/2014 106 Triglyceride (mg/dL) Date Value 06/15/2016 82 10/08/2014 79 HGB A1C: No results found for: HBA1C TSH: TSH (uU/mL) Date Value 06/15/2016 4.050 05/17/2014 5.190 ) Care Gap: not seen by pcp in 1+ years Plan: ? Confirm PCP / Status - unknown ? Type of appointment needed: Physical next available with pcp or water treatment plant engineer ? Consultation Appointments: n/a Labs, HM and Immunization: Health Maintenance Due: ANNUAL PCP TEAM CHRONIC DISEASE VISIT due on 1974 ONE PNEUMOVAX PRIOR TO AGE 66 due on 12/17/1975 HEPATITIS C SCREENING due on 2000 MAMMOGRAM due on 06/21/2017 INFLUENZA(1) due on 11/23/2017 KAYLAH Coto CMA 05/08/2018 2:01 PM Signed POPULATION HEALTH STONE DECORATOR ROSEMARYNOTE Provider Action/FYI: Patient identified by name and . 1st attempt - MyChart message sent. KAYLAH oCto CMA 05/08/2018 2:01 PM Signed [facility] STONE DECORATOR ANSHUL Provider Action/FYI: Patient identified by name and . 2nd attempt - Left message for patient to return call #[phone] KAYLAH Coto CMA 05/08/2018 2:01 PM Signed [facility] STONE DECORATOR ANSHUL Provider Action/FYI: I spoke with abbe and she states she had to get a new doctor because we aren't accepting her new insurance. Dr. bennett removed as pcp. Patient identified by name and . Good Casas CMA Allergies As of Date: 05/01/2018 (No Known Allergies) Date Reviewed: 09/28/2016 Reviewed by: Aracely Ross LPN - Fully Assessed Reason for Visit: PHMA/Care Gap Outreach [[id number]] Prescriptions as of 05/01/2018 Sig: IBUPROFEN 200 MG TABLET Take 1-2 tablets by mouth stella* BECLOMETHASONE DIPROPIONATE 8* Inhale 1 Puff as instructed t* ALBUTEROL SULFATE HFA 90 MCG/* Inhale 2 Puffs as instructed * MONTELUKAST 10 MG TABLET Take 1 tablet by mouth daily * ALBUTEROL SULFATE HFA 90 MCG/* Inhale 2 Puffs as instructed * Problem List As Of Date 05/01/2018 Noted Resolved COMMON MIGRAINE W/O MENTN INTRACT [G43.009] INVALID FOR* MYALGIA AND MYOSITIS NOS [PKY2559] INVALID FOR*08/13/2005 Enthesopathy of unspecified site [M77.9] INVALID FOR*09/26/2016 myalgia thenar,hypothenar and onconeous m right*INVALID FOR*09/26/2016 PAIN LOW BACK [M54.5] INVALID FOR*09/26/2016 INSOMNIA NONORGANIC TRANSIENT [F51.02] INVALID FOR*09/26/2016 ADJUSTMENT DISORDER WITH DEPRESSED MOOD [F43.21]INVALID FOR* DEPRESSIVE DISORDER NEC [F32.9] INVALID FOR* GOITER MULTINODULAR, NONTOXIC [E04.2] INVALID FOR* Enlargement of lymph nodes [R59.9] INVALID FOR*09/26/2016 More... Thyroiditis [E06.9] INVALID FOR* Special screening for malignant neoplasms, colo*INVALID FOR*09/26/2016 Pain in joint, lower leg [M25.569] INVALID FOR*09/26/2016 Unspecified Enthesopathy of Knee [M76.899] INVALID FOR* Shortness of breath [R06.02] INVALID FOR*10/05/2014 Abnormal echocardiogram [R93.1] INVALID FOR*10/05/2014 Abnormal ECG [R94.31] INVALID FOR* Mild persistent asthma [J45.30] INVALID FOR* More... Obesity (BMI 30.0-34.9) [E66.9] INVALID FOR* More... Abnormal mammogram [R92.8] INVALID FOR* Encounter Status:Closed by GOOD CASAS CMA on 05/08/18 Normal [facility] PROGRESSon 05-01-2018 Protein mass conc HNO ID: [id number] Author: Good Casas Service: (none) Author Type: Environmental Aid Type: Progress Notes Filed: 05/08/2018 2:01 PM Note Text: [facility] STONE DECORATOR QUICKNOTE Provider Action/FYI: Patient identified by name and . 1st attempt - Shipster message sent. Good Casas CMA Normal [facility] Protein mass conc HNO ID: [id number] Author: Good Casas Service: (none) Author Type: Environmental Aid Type: Progress Notes Filed: 05/08/2018 2:01 PM Note Text: PHMA TEAMLET DOCUMENTATION Provider Action/FYI: PSR Action/FYI: Physical appointment Health Maintenance Due: ANNUAL PCP TEAM CHRONIC DISEASE VISIT due on 1974 ONE PNEUMOVAX PRIOR TO AGE 66 due on 12/17/1975 HEPATITIS C SCREENING due on 2000 MAMMOGRAM due on 06/21/2017 INFLUENZA(1) due on 11/23/2017 Teamlet has identified patient by name and date of . Team: Dr. Tam Stephen ? Last Office Visit:Visit date not found ? Next Office Visit: Visit date not found ? Last BP/Labs: Blood Pressure: Last 3 Encounter BP Readings: Date: BP: 09/28/2016 117/68[#6 (from Extended Vitals)[ 09/26/2016 122/84 09/13/2016 145/82 Lipids: Cholesterol, Total (mg/dL) Date Value 06/15/2016 204 10/08/2014 205 HDL Cholesterol (mg/dL) Date Value 06/15/2016 73 10/08/2014 83 LDL Cholesterol (mg/dL) Date Value 06/15/2016 115 10/08/2014 106 Triglyceride (mg/dL) Date Value 06/15/2016 82 10/08/2014 79 HGB A1C: No results found for: HBA1C TSH: TSH (uU/mL) Date Value 06/15/2016 4.050 05/17/2014 5.190 ) Care Gap: not seen by pcp in 1+ years Plan: ? Confirm PCP / Status - unknown ? Type of appointment needed: Physical next available with pcp or water treatment plant engineer ? Consultation Appointments: n/a Labs, HM and Immunization: Health Maintenance Due: ANNUAL PCP TEAM CHRONIC DISEASE VISIT due on 1974 ONE PNEUMOVAX PRIOR TO AGE 66 due on 12/17/1975 HEPATITIS C SCREENING due on 2000 MAMMOGRAM due on 06/21/2017 INFLUENZA(1) due on 11/23/2017 Good Casas [facility] Normal [facility] Summary Purpose Family History No Family History Records Found Advance Directives No Advanced Directives Records Found Additional Source Comments INFORMATION SOURCE (unrecogn ized section and content) DATE CREATED AUTHOR 05/14/2018 [facility] FOR RECORDS PERTAINING TO PATIENTS WHO ARE [...] BE BASED ON THE PRIMARY CLINICAL RECORDS. [employer] provides no warranty or guarantee of the accuracy or completeness of information in this document.
== END | disposition home or self-care (01) ==
LOC: OPBI 07:16
PROVIDERS: PCP Family Medicine; Referring Provider Family Medicine; Visit Provider Family Medicine
DX: Z12.31 Encounter for screening mammogram for malignant neoplasm of breast (principal)
CPT/HCPCS: 77063; 77067

== ENCOUNTER → 2024-04-28 | Outpatient (CLI) | payer MEDICARE, SELFPAY ==
[2024-04-28 10:34] LABS: Vitamin D,25 Hydroxy 25.4 ng/mL
[2024-04-28 10:38] LABS: ALB/GLOB Ratio 0.8 RATIO (0.9-2.4); AST(SGOT) 17 U/L (15-37); Alanine Aminotransfer ALT/SGPT 27 U/L (13-56); Albumin, Serum 3.5 g/dL (3.2-5.0); Alkaline Phosphatase 94 U/L (45-117); Anion Gap 8 (5-15); BUN 22 mg/dL (7-18); BUN/Creat Ratio 30.3 RATIO (10-20); Calcium,Total 9.7 mg/dL (8.5-10.1); Chloride 109 mmol/L (98-107); Cholesterol 214 mg/dL (200); Creatinine, Serum 0.72 mg/dL (0.55-1.02); EST Glomerular Filtration Rate 85 mL/min (>60); Est Glom Filt Rate - Afr Amer 103 mL/min (>60); Globulin 4.3 g/dL (2.2-4.2); Glucose 96 mg/dL (74-106); High Density Lipoprotein 82 mg/dL; Protein, Total 7.8 g/dL (6.4-8.2); Sodium Level 139 mmol/L (136-145); T4 Free Direct 0.97 ng/dL (0.76-1.46); Triglycerides 141 mg/dL; Very Low Density Lipoprotein 28 mg/dL (5-40)
[2024-04-28 10:44] LABS: Absolute Lymphocyte Count 1.98 X10^3/uL (0.83-4.51); Absolute Neutrophil Count 5.2 X10^3/uL (2.0-7.7); Basophil# 0.04 X10^3/uL; Basophil% 0.5 % (0-1); Eosinophil# 0.32 X10^3/uL; Eosinophils% 3.8 % (0-5); Hematocrit 44.1 % (37-47); Hemoglobin 14.4 g/dL (12.0-15.0); Lymphocyte # 1.98 X10^3/ul (0.83-4.51); Lymphocyte % 23.7 % (19-41); Mean Corp Hgb Conc 32.7 g/dL (32-36); Mean Corpuscular Hgb 30.3 pg (27.0-32.0); Mean Corpuscular Volume 92.6 fL (81-99); Mean Platelet Vol. 9.9 fl (6.2-12.0); Monocyte# 0.75 X10^3/uL; NRBC Flagged by Analyzer 0 % (0-5); Neutrophil # 5.23 X10^3/uL (2.7-7.7); Neutrophil % 62.5 % (47-70); Platelet Count 237 K/mm3 (150-450); RBC Distribution Width CV 12.9 % (11.6-14.6); RBC Distribution Width SD 43.8 fl (35.1-43.9); Red Blood Count 4.76 M/mm3 (4.2-5.4); White Blood Count 8.4 K/mm3 (4.4-11.0)
[2024-04-28 11:21] LABS: Microalbumin,Random Urine 10.3 mg/L (NO RANGE EST.); Microalbumin:Creatinine Ratio 14.8 mg/g CRE (<30 mg/g CRE)
[2024-04-28 12:04] LABS: Hemoglobin A1c 5.2 % (3.8-5.6)
== END | disposition home or self-care (01) ==
LOC: MFPLAB 08:30
PROVIDERS: PCP Family Medicine; Referring Provider Family Medicine; Visit Provider Family Medicine
DX: I10 Essential (primary) hypertension (principal); M85.80 Other specified disorders of bone density and structure, unspecified site; E06.3 Autoimmune thyroiditis; R73.02 Impaired glucose tolerance (oral)
CPT/HCPCS: 36415; 80053; 80061; 82043; 82306; 82570; 83036; 84439; 84443; 85025

== ENCOUNTER → 2024-04-30 | Outpatient (CLI) | payer MEDICARE, SELFPAY ==
--- NOTE | 2024-04-30 07:14 | US_ITS ---
PROCEDURE: THYROID REASON FOR EXAM: Thyroid nodules. TECHNIQUE: Thyroid ultrasound COMPARISON: Comparison is made with prior study dated February 07, 2022. FINDINGS: Right thyroid lobe measures 4.6 cm x 1.8 cm x 1.7 cm. Left thyroid lobe measures 4.3 cm x 1.6 cm x 1.5 cm. Isthmus thickness is5 mm. Thyroid Size: Normal Background Echotexture: Heterogeneous Thyroid Nodules: Essentially stable 2.4 cm x 1.7 cm x 1 cm complex nodule in the inferior medial aspect of the right lobe with perinodular flow. Focal calcification is seen within the. Biopsy recommended if not already performed. Stable 3 mm x 3 mm x 2 mm hypoechoic nodule in the superior pole suggestive of an adenoma. 1 cm x 0.7 cm x 0.6 cm hypoechoic nodule in the inferior isthmus of the left lobe as well as a 5 mm x 3 mm x 2 mm hypoechoic nodule in the midpole. US/Thyroid IMPRESSION: Essentially stable examination with dominant complex nodule in the inferior med ial aspect of the right lobe of the thyroid. Biopsy recommended if not already performed. Reading Location: [place] [id number]
--- NOTE | 2024-04-30 07:14 | US_ITS ---
EXAM: US Abdomen Limited, Right Upper Quadrant CLINICAL INDICATION: TECHNIQUE: Real-time ultrasound of the right upper quadrant with image documentation. COMPARISON: No relevant prior studies available. FINDINGS: LIVER: Liver measures up to 15.7 cm. Fatty infiltration of the liver. Hepatopetal portal flow in main portal vein. No intrahepatic bile duct dilation. GALLBLADDER: Cholelithiasis with gallbladder sludge. COMMON BILE DUCT: Common bile duct is prominent measuring 0.79 cm in diameter. No common bile duct stone is seen. PANCREAS: Probable fatty pancreas. RIGHT KIDNEY: Unremarkable. No stones. No hydronephrosis. The right kidney measures 9.3 x 5.0 x 4.0 cm. US/Abdomen Limited IMPRESSION: 1. Fatty infiltration of the liver. 2. Cholelithiasis with gallbladder sludge. 3. Common bile duct is prominent measuring 0.79 cm in diameter. No common mary kay e duct stone is seen. Reading [facility]
== END | disposition home or self-care (01) ==
LOC: US 07:13
PROVIDERS: PCP Family Medicine; Referring Provider Family Medicine; Visit Provider Family Medicine
DX: E04.2 Nontoxic multinodular goiter (principal); R10.11 Right upper quadrant pain
CPT/HCPCS: 76536; 76705

== ENCOUNTER → 2024-08-12 | Outpatient (CLI) | payer MEDICARE, SELFPAY ==
[2024-08-12 10:21] LABS: Bacteria 0 SEEN /hpf (None Seen); Mucous, Urine 0 SEEN /hpf (<or=2+); Red Blood Cells-Urine 0 SEEN /hpf (0-5)
[2024-08-12 12:28] LABS: Absolute Lymphocyte Count 2.08 X10^3/uL (0.83-4.51); Absolute Neutrophil Count 4.3 X10^3/uL (2.0-7.7); Basophil# 0.03 X10^3/uL; Basophil% 0.4 % (0-1); Eosinophil# 0.37 X10^3/uL; Eosinophils% 4.9 % (0-5); Hematocrit 44.6 % (37-47); Hemoglobin 14.5 g/dL (12.0-15.0); Lymphocyte # 2.08 X10^3/ul (0.83-4.51); Lymphocyte % 27.8 % (19-41); Mean Corp Hgb Conc 32.5 g/dL (32-36); Mean Corpuscular Hgb 29.7 pg (27.0-32.0); Mean Corpuscular Volume 91.4 fL (81-99); Mean Platelet Vol. 10.3 fl (6.2-12.0); Monocyte# 0.72 X10^3/uL; Monocyte% 9.6 % (0-10); NRBC Flagged by Analyzer 0 % (0-5); Neutrophil # 4.25 X10^3/uL (2.7-7.7); Neutrophil % 56.9 % (47-70); Platelet Count 271 K/mm3 (150-450); RBC Distribution Width CV 12.8 % (11.6-14.6); RBC Distribution Width SD 43.3 fl (35.1-43.9); Red Blood Count 4.88 M/mm3 (4.2-5.4); White Blood Count 7.5 K/mm3 (4.4-11.0)
[2024-08-12 12:32] LABS: Glucose, Dipstick Normal (Normal); Ketone-Dipstick Negative (Negative); Leukocyte Esterase-Dipstick 25 /ul (Negative); Nitrite-Dipstick Negative (Negative); Occult Blood-Urine Negative /ul (Negative); Protein-Dipstick 15 mg/dl (Negative); Urine Bilirubin Dipstick Negative (Negative); Urine Urobilinogen Normal (Normal)
[2024-08-12 12:33] LABS: Color, Urine Yellow (Yellow); Urine Clarity Clear (Clear)
[2024-08-12 13:10] LABS: Squamous Epithelial Cells - UA 0-5 SEEN /hpf (5-10); White Blood Cells 0-5 SEEN /hpf (0-5)
[2024-08-12 13:44] LABS: ALB/GLOB Ratio 1.2 RATIO (0.9-2.4); AST(SGOT) 22 U/L (<=31); Alanine Aminotransfer ALT/SGPT 20 U/L (<=34); Albumin, Serum 4.3 g/dL (3.4-4.8); Alkaline Phosphatase 126 U/L (35-104); Anion Gap 13 (5-15); BUN 24 mg/dL (4-19); BUN/Creat Ratio 32.5 RATIO (10-20); Calcium,Total 9.8 mg/dL (7.6-11.0); Chloride 106 mmol/L (98-108); Cholesterol 228 mg/dL (<=200); Creatinine, Serum 0.75 mg/dL (0.70-1.20); EST Glomerular Filtration Rate 87 (>60); Globulin 3.7 g/dL (2.2-4.2); Glucose 110 mg/dL (70-99); High Density Lipoprotein 63 mg/dL; Low Density Lipoprotein Calc. 127 mg/dL; Magnesium 2.3 mg/dL (1.5-2.2); Potassium 4.5 mmol/L (3.3-5.1); Sodium Level 139 mmol/L (133-145); Total Bilirubin 0.29 mg/dL (0.00-1.30); Triglycerides 192 mg/dL; Very Low Density Lipoprotein 38 mg/dL (5-40); cholesterol:hdl ratio screen 3.64
== END | disposition home or self-care (01) ==
LOC: MFPLAB 10:18
PROVIDERS: PCP Family Medicine; Referring Provider Family Medicine; Visit Provider Family Medicine
DX: I10 Essential (primary) hypertension (principal); E06.3 Autoimmune thyroiditis; R73.02 Impaired glucose tolerance (oral)
CPT/HCPCS: 36415; 80053; 80061; 81001; 83036; 83735; 84439; 84443; 85025

== ENCOUNTER 2024-08-28 06:27 | Outpatient (CLI) | payer MEDICARE, SELFPAY ==
--- OUTSIDE RECORDS SUMMARY | 2024-08-28 06:32 | XMS RPT_ITS | CCD ---
Author Organization [facility] Care Team Providers Care Press Operator Helper Name Role Phone Dr. Mark Phipps Primary Care Provider Dr. Mark Phipps Referring Provider Dr. Sandip Raman Attending Provider Dr. Mark Phipps Primary Care Provider Dr. Heath Hansen Attending Provider Dr. Mark Phipps Referring Provider [phone] Yany ORTIZ, DIANA Graham Attending Provider Mark Phipps MD Primary Care Provider ANSHUL MONTGOMERY Attending Unavailable Dr. Mark Phipps MD Primary Care Provider Dr. Mark Phipps MD Attending Provider [phone] Dr. Mark Phipps MD Referring Provider DR MARCELA GÓMEZ DO Attending Unavailab le Mark Phipps Attending Unavailable Mark Phipps Referring Unavailable Mark Phipps Primary Care Unavailable Mark Phipps Attending Unavailable Mark Phipps Referring Unavailable Mark Phipps Primary Care Unavailable Mark Phipps Attending Unavailable Mark Phipps Referring Unavailable Mark Phipps Primary Care Unavailable Mark Phipps Referring Unavailable Mark Phipps Primary Care Unavailable Mark Phipps Attending Unavailable Mark Phipps Primary Care Unavailable Town Doctor, Out of Attending Unavailable Town Doctor, Out of Referring Unavailable Mark Phipps Attending Unavailable Mark Phipps Referring Unavailable Mark Phipps Primary Care Unavailable Mark Phipps Referring Unavailable Mark Phipps Attending Unavailable Mark Phipps Primary Care Unavailable Mark Phipps Attending Unavailable Mark Phipps Primary Care Unavailable Medications Current Medications Medication Drug Class(es) Dates Sig (Normalized) Sig (Original) [id number] actuat albuterol 0.09 mg/actuat metered dose inhaler (2 sources) beta2-Adrenergic Agonist Start: 06-13-2016 take 2 puff(s) by inhalation every four hours as needed albuterol HFA (PROVENTIL HFA, VENTOLIN HFA) 90 mcg/actuation inhaler Indications: Mild persistent asthma without complication Inhale 2 Puffs as instructed every 4 hours as needed. 1 Inhaler 2 09/13/2016 Active amLODIPine 10 mg oral tablet (14 sources) Dihydropyridine Calcium Channel Alice Start: 03-30-2019 take 1 tablet by mouth once daily Amlodipine 10 mg tablet Active 10 mg PO DAILY March 30, 2019 1:00am Beclomethasone (1 source) Corticosteroid Start: 09-13-2016 take 1 puff(s) by inhalation twice daily beclomethasone (QVAR) 80 mcg/actuation inhaler Indications: Mild persistent asthma without complication Inhale 1 Puff as instructed twice daily. 1 Inhaler 2 09/13/2016 Active 120 actuat budesonide 0.16 mg/actuat / formoterol fumarate 0.0045 mg/actuat metered dose inhaler (3 sources) Corticosteroid, beta2-Adrenergic Agonist Start: 01-08-2023 Budesonide-Formoter ol (Symbicort) 160-4.5 mcg/actuation HFA aerosol inhaler Active INHALATION January 08, 2023 12:00am Start: 01-08-2023 Budesonide-For moterol (Symbicort) 160-4.5 mcg/actuation HFA aerosol inhaler Active INHALATION January 07, 2023 11:00pm take 2 puff(s) by in halation twice daily as needed budesonide-formoterol (SYMBICORT) 80-4.5 mcg/actuation inhaler Inhale 2 Puffs as instructed two times a day as needed. Active cholecalciferol 0.05 mg oral tablet (1 source) Vitamin D take 1 tablet by mouth once daily cholecalciferol (VITAMIN D-3) 50 mcg (2,000 unit) tablet Take 2,000 Units by mouth once daily. Active cyclobenzaprine hydrochloride 5 mg oral tablet (2 sources) Muscle Relaxant Start: 2022 take 1 tablet by mouth three times daily as needed for muscle spasms Cyclobenzaprine 5 mg tablet Active 5 mg PO THREE TIMES A DAY as needed for muscle spasm January 08, 2023 12:00am hydroCHLOROthiazide 25 mg oral tablet (13 sources) Thiazide Diuretic Start: 2021 take 1 tablet by mouth once daily Hydrochlorothiazide 25 mg tablet Active 25 mg PO DAILY June 23, 2021 12:00am ibuprofen 200 mg oral tablet (1 source) Nonsteroidal Anti-inflammatory Drug Start: 2016 take 200-400 mg by mouth every six hours as needed ibuprofen (MOTRIN) 200 mg tablet Take 1-2 tablets by mouth every 6 hours as needed for Pain (Take with food.). 0 09/13/2016 Active montelukast 10 mg oral tablet (1 source) Leukotriene Receptor Antagonist Start: 2016 take 1 tablet by mouth once daily at bedtime montelukast (SINGULAIR) 10 mg tablet Indications: Mild persistent asthma without complication Take 1 tablet by mouth daily at bedtime. 30 tablet 3 09/13/2016 Active potassium chloride 20 meq extended release oral tablet (13 sources) Start: 2021 take 1 tablet by mouth twice daily Potassium Chloride 20 mEq tablet extended release Active 20 meq PO TWICE A DAY 14 June 23, 2021 12:00am predniSONE 10 mg oral tablet (2 sources) Start: 2022 take 4 tablets by mouth once daily, then take 3 tablets by mouth once daily, then take 2 tablets by mouth once daily, then take 1 tablet by mouth once daily Prednisone 10 mg tablet Active 10 mg PO As Directed January 08, 2023 12:00am 4 tablets daily x3 days, then 3 tablets daily x3 days, then 2 tablets daily x3 days, then 1 tablet daily x3 days spironolactone 50 mg oral tablet (1 source) Aldosterone Antagonist take 1 tablet by mouth once daily spironolactone (ALDACTONE) 50 mg tablet Take 50 mg by mouth once daily. Active Completed/Discontinued Medications Medication Drug Class(es) Dates Sig (Normalized) Sig (Original) citalopram 20 mg oral tablet (13 sources) Serotonin Reuptake Inhibitor Start: 10-17-2013 End: 03-30-2019 Citalopram tablet Discontinued October 17, 2013 12:00am March 30, 2019 4:19pm Start: 10-17-2013 End: 03-30-2019 Citalopram Discontinued October 16, 2013 11:00pm March 30, 2019 3:19pm esomeprazole 40 mg delayed release oral capsule (13 sources) Proton Pump Inhibitor Start: 10-17-2013 End: 03-30-2019 Esomeprazole Magnesium capsule,delayed release(DR/EC) Discontinued October 17, 2013 12:00am March 30, 2019 4:19pm Start: 10-17-2013 End: 03-30-2019 Esomeprazole Magnesium Disco ntinued October 16, 2013 11:00pm March 30, 2019 3:19pm Fluticasone Propion-Salmeterol (13 sources) Corticosteroid, beta2-Adrenergic Agonist Start: 10-17-2013 End: 03-30-2019 Fluticasone Propion-Salmeterol Discontinued October 17, 2013 6:49pm March 30, 2019 4:19pm Start: 10-17-2013 End: 03-30-2019 Fluticasone Propion-Salmeter ol blister with device Discontinued October 17, 2013 12:00am March 30, 2019 4:19pm Start: 10-17-2013 End: 03-30-2019 Fluticasone Propion-Salmeter ol Discontinued October 16, 2013 11:00pm March 30, 2019 3:19pm Start: 10-17-2013 End: 03-30-2019 Fluticasone Propion-Salmeter ol Discontinued October 17, 2013 12:00am March 30, 2019 4:19pm omeprazole 40 mg delayed release oral capsule (13 sources) Proton Pump Inhibitor Start: 10-17-2013 End: 03-30-2019 Omeprazole capsule,delayed release(DR/EC) Discontinued October 17, 2013 12:00am March 30, 2019 4:19pm Start: 10-17-2013 End: 03-30-2019 Omeprazole Discontinued October 16, 2013 11:00pm March 30, 2019 3:19pm Problems Active Problems Problem Classification Problem Date Documented Date Episodic/Chronic Abdominal pain (1 source) Right upper quadrant pain; Translations: [Right upper quadrant pain] 05-20-2024 Episodic Adjustment disorders (1 source) Adjustment disorder with depressed mood; Translations: [Adjustment disorder with depressed mood] Onset: 12-06-2005 10-03-2023 Chronic Asthma (3 sources) Asthma; Translations: [Unspecified asthma, uncomplicated] Onset: 09-13-2016 01-08-2023 Chronic Biliary tract disease (1 source) Cholelithiasis without obstruction; Translations: [Calculus of gallbladder without cholecystitis without obstruction] 05-20-2024 Episodic Essential hypertension (1 source) Essential (primary) hypertension; Translations: [Essential (primary) hypertension] Onset: 08-17-2024 Chronic Fluid and electrolyte disorders (20 sources) Mild dehydration; Translations: [Dehydration] 07-01-2021 Episodic Headache; including migraine (1 source) Migraine without aura; Translations: [Migraine without aura, not intractable, without status migrainosus] Onset: 04-06-2005 10-03-2023 Chronic Mood disorders (1 source) Depressive disorder; Translations: [Other specified depressive episodes] Onset: 12-06-2005 10-03-2023 Chronic Osteoarthritis (1 source) Bilateral primary osteoarthritis of knee; Translations: [Bilateral primary osteoarthritis of knee] Onset: 08-10-2024 Chronic Other non-traumatic joint disorders (1 source) Pain in right knee; Translations: [Pain in right knee] Onset: 08-10-2024 Episodic Other nutritional; endocrine; and metabolic disorders (1 source) Obese class I; Translations: [Obesity (BMI 30.0-34.9)] Onset: 09-13-2016 09-13-2016 Chronic Other screening for suspected conditions (not mental disorders or infectious disease) (19 sources) Patient encounter status; Translations: [Encounter for screening for malignant neoplasm of intestinal tract, unspecified] Onset: 07-25-2009 Resolved: 09-26-2016 10-16-2019 Episodic Spondylosis; intervertebral disc disorders; other back problems (3 sources) Degeneration of lumbar intervertebral disc; Translations: [Other intervertebral disc degeneration, lumbar region] 01-08-2023 Chronic Sprains and strains (3 sources) Lower back injury; Translations: [Strain of muscle, fascia and tendon of lower back, initial encounter] 01-08-2023 Episodic Superficial injury; contusion (13 sources) Contusion of upper limb; Translations: [Contusion of unspecified upper arm, initial encounter] 03-08-2013 Episodic Thyroid disorders (20 sources) Thyroid nodule; Translations: [Nontoxic single thyroid nodule] Onset: 09-09-2008 03-30-2019 Chronic Past or Other Problems Problem Classification Problem Date Documented Date Episodic/Chronic Lymphadenitis (1 source) Lymphadenopathy; Translations: [Enlarged lymph nodes, unspecified] Onset: 09-17-2008 Resolved: 09-26-2016 09-26-2016 Episodic Miscellaneous mental health disorders (1 source) Disorders of initiating and maintaining sleep; Translations: [Adjustment insomnia] Onset: 12-06-2005 Resolved: 09-26-2016 09-26-2016 Episodic Other connective tissue disease (1 source) Enthesopathy of knee; Translations: [Other specified enthesopathies of unspecified lower limb, excluding foot] Onset: 10-21-2009 10-21-2009 Episodic Other connective tissue disease (2 sources) Muscle pain; Translations: [Myalgia and myositis, unspecified] Onset: 04-06-2005 Resolved: 09-26-2016 10-03-2023 Episodic Other connective tissue disease (1 source) Enthesopathy; Translations: [Enthesopathy, unspecified] Onset: 08-13-2005 Resolved: 09-26-2016 09-26-2016 Episodic Other lower respiratory disease (1 source) Dyspnea; Translations: [Shortness of breath] Onset: 05-15-2012 Resolved: 10-05-2014 10-05-2014 Episodic Other non-traumatic joint disorders (1 source) Pain in lower limb; Translations: [Pain in unspecified knee] Onset: 10-21-2009 Resolved: 09-26-2016 09-26-2016 Episodic Spondylosis; intervertebral disc disorders; other back problems (1 source) Low back pain; Translations: [Lumbago] Onset: 12-06-2005 Resolved: 09-26-2016 09-26-2016 Episodic Unclassified (6 sources) history of removal heel spur 10-14-2021 Results Test Name Value Interpretation Reference Range Facility Absolute lymphocyte countOrd ered By: Mark Phipps on 08-12-2024 Lymphocytes Auto (Unsp spec) [#/Vol] 2.08 10*3/uL 0.83-4.51 [facility] Absolute neutrophil countOrd ered By: Mark Phipps on 08-12-2024 Neutrophils (Bld) [#/Vol] 4.3 10*3/uL 2.0-7.7 [facility] Anion gap in Serum or Plasma Ordered By: Mark Phipps on 08-12-2024 Anion gap [Moles/Vol] 13 mmol/L 5- [facility] Automated lymphocyte count a s percentage of total leukocytesOrdered By: Mark Phipps on 08-12-2024 Lymphocytes/100 WBC Auto (Unsp spec) 27.8 % - [facility] BUN/creatinine ratioOrdered By: Mark Phipps on 08-12-2024 Urea nitrogen/Creatinine [Mass ratio] 32.5 mg/mg High 10- [facility] Basophil percentageOrdered B y: Mark Phipps on 08-12-2024 Basophils/100 WBC (Bld) 0.4 % 0-1 [facility] Bilirubin Test strip Ql (U)O rdered By: Mark Phipps on 08-12-2024 Bilirubin Ql (U) Negative Negative [facility] Bilirubin, totalOrdered By: Mark Phipps on 08-12-2024 Bilirubin [Mass/Vol] 0.29 mg/dL 0.00-1.30 [facility] CBC W/Diff, Automatedon 07-24 Absolute Lymph 2.08 X10 3/uL Normal 0.83-4.51 [facility] Comment on above: Order Comment: Order Date: 04/28/24 Order Info: [id number] - [id number] Performed By: #### L 506.1000, L506.0400, L501.9985, L501.9520, L500.4100, L500.4050, L100.0100 #### [facility] [address] [place] [address], [address] Absolute Neut 4.3 X10 3/uL Normal 2.0-7.7 [facility] Comment on above: Order Comment: Order Date: 04/28/24 Order Info: [id number] - [id number] Performed By: #### L 506.1000, L506.0400, L501.9985, L501.9520, L500.4100, L500.4050, L100.0100 #### [facility] [address] [place], [address] Basophils/100 WBC (Bld) 0.4 % Normal 0-1 [facility] Comment on above: Order Comment: Order Date: 04/28/24 Order Info: [id number] - [id number] Performed By: #### L 506.1000, L506.0400, L501.9985, L501.9520, L500.4100, L500.4050, L100.0100 #### [facility] [address] [place], [address] Eosinophils/100 WBC (Bld) 4.9 % Normal 0-5 [facility] Comment on above: Order Comment: Order Date: 04/28/24 Order Info: [id number] - [id number] Performed By: #### L 506.1000, L506.0400, L501.9985, L501.9520, L500.4100, L500.4050, L100.0100 #### [facility] [address] [place], [address] Erythrocyte distribution width (RBC) [Ratio] 12.8 % Normal 11.6-14.6 [facility] Comment on above: Order Comment: Order Date: 04/28/24 Order Info: [id number] - VITD25 Performed By: #### L 506.1000, L506.0400, L501.9985, L501.9520, L500.4100, L500.4050, L100.0100 #### [facility] [address] [place], [address] Hematocrit (Bld) [Volume fraction] 44.6 % Normal 37-47 [facility] Comment on above: Order Comment: Order Date: 04/28/24 Order Info: [id number] - [id number] Performed By: #### L 506.1000, L506.0400, L501.9985, L501.9520, L500.4100, L500.4050, L100.0100 #### [facility] [address] [place], [address] Hemoglobin (Bld) [Mass/Vol] 14.5 g/dL Normal 12.0-15.0 [facility] Comment on above: Order Comment: Order Date: 04/28/24 Order Info: [id number] - VITD25 Performed By: #### L 506.1000, L506.0400, L501.9985, L501.9520, L500.4100, L500.4050, L100.0100 #### [facility] [address] [place], [address] IG% 0.400 Normal 0.0-0.9 [facility] Comment on above: Order Comment: Order Date: 04/28/24 Order Info: [id number] - [id number] Result Comment: IG% - Immature Granulocytes (promyelocytes, myelocytes and metamyelocytes) > 1% indicates that a LEFT SHIFT is Present. Performed By: #### L 506.1000, L506.0400, L501.9985, L501.9520, L500.4100, L500.4050, L100.0100 #### [facility] [address] [place], [address] Lymphocytes/100 WBC (Bld) 27.8 % Normal 19-41 [facility] Comment on above: Order Comment: Order Date: 04/28/24 Order Info: [id number] - VITD25 Performed By: #### L 506.1000, L506.0400, L501.9985, L501.9520, L500.4100, L500.4050, L100.0100 #### [facility] [address] [place], [address] MCH (RBC) [Entitic mass] 29.7 pg Normal 27.0-32.0 [facility] Comment on above: Order Comment: Order Date: 04/28/24 Order Info: [id number] - VITD25 Performed By: #### L 506.1000, L506.0400, L501.9985, L501.9520, L500.4100, L500.4050, L100.0100 #### [facility] [address] [place], [address] MCHC (RBC) [Mass/Vol] 32.5 g/dL Normal 32-36 [facility] Comment on above: Order Comment: Order Date: 04/28/24 Order Info: [id number] - VITD25 Performed By: #### L 506.1000, L506.0400, L501.9985, L501.9520, L500.4100, L500.4050, L100.0100 #### [facility] [address] [place], [address] MCV (RBC) [Entitic vol] 91.4 fL Normal 81-99 [facility] Comment on above: Order Comment: Order Date: 04/28/24 Order Info: [id number] - VITD25 Performed By: #### L 506.1000, L506.0400, L501.9985, L501.9520, L500.4100, L500.4050, L100.0100 #### [facility] [address] [place], [address] Monocytes/100 WBC (Bld) 9.6 % Normal 0-10 [facility] Comment on above: Order Comment: Order Date: 04/28/24 Order Info: [id number] - VITD25 Performed By: #### L 506.1000, L506.0400, L501.9985, L501.9520, L500.4100, L500.4050, L100.0100 #### [facility] [address] [place], [address] Neutrophils/100 WBC (Bld) 56.9 % Normal 47-70 [facility] Comment on above: Order Comment: Order Date: 04/28/24 Order Info: [id number] - [id number] Performed By: #### L 506.1000, L506.0400, L501.9985, L501.9520, L500.4100, L500.4050, L100.0100 #### [facility] [address] [place], [address] Nucleated RBC (Bld) [#/Vol] 0 10*3/uL Normal 0-5 [facility] Comment on above: Order Comment: Order Date: 04/28/24 Order Info: [id number] - VITD25 Performed By: #### L 506.1000, L506.0400, L501.9985, L501.9520, L500.4100, L500.4050, L100.0100 #### [facility] [address] [place], [address] Platelet mean volume (Bld) [Entitic vol] 10.3 fL Normal 6.2-12.0 [facility] Comment on above: Order Comment: Order Date: 04/28/24 Order Info: [id number] - VITD25 Performed By: #### L 506.1000, L506.0400, L501.9985, L501.9520, L500.4100, L500.4050, L100.0100 #### [facility] [address] [place], [address] Platelets (Bld) [#/Vol] 271 10*3/uL Normal 150-450 [facility] Comment on above: Order Comment: Order Date: 04/28/24 Order Info: [id number] - VITD25 Performed By: #### L 506.1000, L506.0400, L501.9985, L501.9520, L500.4100, L500.4050, L100.0100 #### [facility] [address] [place], [address] RBC (Bld) [#/Vol] 4.88 10*6/uL Normal 4.2-5.4 [facility] Comment on above: Order Comment: Order Date: 04/28/24 Order Info: [id number] - [id number] Performed By: #### L 506.1000, L506.0400, L501.9985, L501.9520, L500.4100, L500.4050, L100.0100 #### [facility] [address] [place], [place], [address] RDW SD 43.3 fl Normal 35.1-43.9 [facility] Comment on above: Order Comment: Order Date: 04/28/24 Order Info: [id number] - [id number] Performed By: #### L 506.1000, L506.0400, L501.9985, L501.9520, L500.4100, L500.4050, L100.0100 #### [facility] [address] [place], [place], [address] WBC (Bld) [#/Vol] 7.5 10*3/uL Normal 4.4-11.0 [facility] Comment on above: Order Comment: Order Date: 04/28/24 Order Info: [id number] - [id number] Performed By: #### L 506.1000, L506.0400, L501.9985, L501.9520, L500.4100, L500.4050, L100.0100 #### [facility] [address] [place], [place], [address] Calculated very low density lipoprotein (VLDL) cholesterol measurementOrdered By: Mark Phipps on 08-12-2024 Calculated very low density lipoprotein (VLDL) cholesterol measurement 38 mg/dL 5-40 [facility] Carbon dioxide, total [Moles /volume] in Central venous bloodOrdered By: Mark Phipps on 08-12-2024 CO2 [Moles/Vol] 21.0 mmol/L 21.0-32.0 [facility] Chloride assayOrdered By: Jody Phipps on 08-12-2024 Chloride [Moles/Vol] 106 mmol/L 98-108 [facility] Comprehensive Metabolic Prof ilon 08-12-2024 Albumin [Mass/Vol] 4.3 g/dL Normal 3.4-4.8 [facility] Comment on above: Order Comment: Order Date: 04/28/24 Order Info: [id number] - CBCD Performed By: #### L 506.1000, L506.0400, L501.9985, L501.9520, L500.4100, L500.4050, L100.0100 #### [facility] [address] [place], [address] Albumin/Globulin [Mass ratio] 1.2 {ratio} Normal 0.9-2.4 [facility] Comment on above: Order Comment: Order Date: 04/28/24 Order Info: [id number] - CBCD Performed By: #### L 506.1000, L506.0400, L501.9985, L501.9520, L500.4100, L500.4050, L100.0100 #### [facility] [address] [place], [address] ALK PHOS 126 U/L High 35-104 [facility] Comment on above: Order Comment: Order Date: 04/28/24 Order Info: [id number] - CBCD Performed By: #### L 506.1000, L506.0400, L501.9985, L501.9520, L500.4100, L500.4050, L100.0100 #### [facility] [address] [place], [address] ALT [Catalytic activity/Vol] 20 U/L Normal <=34 [facility] Comment on above: Order Comment: Order Date: 04/28/24 Order Info: [id number] - CBCD Performed By: #### L 506.1000, L506.0400, L501.9985, L501.9520, L500.4100, L500.4050, L100.0100 #### [facility] [address] [place], [address] AST [Catalytic activity/Vol] 22 U/L Normal <=31 [facility] Comment on above: Order Comment: Order Date: 04/28/24 Order Info: [id number] - CBCD Performed By: #### L 506.1000, L506.0400, L501.9985, L501.9520, L500.4100, L500.4050, L100.0100 #### [facility] [address] [place], [address] Bilirubin [Mass/Vol] 0.29 mg/dL Normal 0.00-1.30 [facility] Comment on above: Order Comment: Order Date: 04/28/24 Order Info: [id number] - CBCD Performed By: #### L 506.1000, L506.0400, L501.9985, L501.9520, L500.4100, L500.4050, L100.0100 #### [facility] [address] [place], [address] BUN/CRE 32.5 RATIO High 10-20 [facility] Comment on above: Order Comment: Order Date: 04/28/24 Order Info: [id number] - CBCD Performed By: #### L 506.1000, L506.0400, L501.9985, L501.9520, L500.4100, L500.4050, L100.0100 #### [facility] [address] [place], [address] Calcium [Mass/Vol] 9.8 mg/dL Normal 7.6-11.0 [facility] Comment on above: Order Comment: Order Date: 04/28/24 Order Info: [id number] - CBCD Performed By: #### L 506.1000, L506.0400, L501.9985, L501.9520, L500.4100, L500.4050, L100.0100 #### [facility] [address] [place], [address] Chloride [Moles/Vol] 106 mmol/L Normal 98-108 [facility] Comment on above: Order Comment: Order Date: 04/28/24 Order Info: [id number]- - CBCD Performed By: #### L 506.1000, L506.0400, L501.9985, L501.9520, L500.4100, L500.4050, L100.0100 #### [facility] [address] [place], [address] CO2 [Moles/Vol] 21.0 mmol/L Normal 21.0-32.0 [facility] Comment on above: Order Comment: Order Date: 04/28/24 Order Info: [id number]- - CBCD Performed By: #### L 506.1000, L506.0400, L501.9985, L501.9520, L500.4100, L500.4050, L100.0100 #### [facility] [address] [place], [address] Creatinine [Mass/Vol] 0.75 mg/dL Normal 0.70-1.20 [facility] Comment on above: Order Comment: Order Date: 04/28/24 Order Info: [id number]- - CBCD Performed By: #### L 506.1000, L506.0400, L501.9985, L501.9520, L500.4100, L500.4050, L100.0100 #### [facility] [address] [place], [address] GAP 13 Normal 5-15 [facility] Comment on above: Order Comment: Order Date: 04/28/24 Order Info: [id number]- - CBCD Performed By: #### L 506.1000, L506.0400, L501.9985, L501.9520, L500.4100, L500.4050, L100.0100 #### [facility] [address] [place], [address] GFR/1.73 sq M.predicted among non-blacks MDRD (S/P/Bld) [Vol rate/Area] 87 mL/min/{1.73_m2} Normal >60 [facility] Comment on above: Order Comment: Order Date: 04/28/24 Order Info: [id number] - CBCD Result Comment: mL/m in/1.73m2 CKD-EPI Creatinine Equation (2020) Performed By: #### L 506.1000, L506.0400, L501.9985, L501.9520, L500.4100, L500.4050, L100.0100 #### [facility] [address] [place], [address] Globulin (S) [Mass/Vol] 3.7 g/dL Normal 2.2-4.2 [facility] Comment on above: Order Comment: Order Date: 04/28/24 Order Info: 0184- - CBCD Performed By: #### L 506.1000, L506.0400, L501.9985, L501.9520, L500.4100, L500.4050, L100.0100 #### [facility] [address] [place], [address] Glucose [Mass/Vol] 110 mg/dL High 70-99 [facility] Comment on above: Order Comment: Order Date: 04/28/24 Order Info: 0184- - CBCD Performed By: #### L 506.1000, L506.0400, L501.9985, L501.9520, L500.4100, L500.4050, L100.0100 #### [facility] [address] [place], [address] Potassium [Moles/Vol] 4.5 mmol/L Normal 3.3-5.1 [facility] Comment on above: Order Comment: Order Date: 04/28/24 Order Info: 0184-1 - CBCD Performed By: #### L 506.1000, L506.0400, L501.9985, L501.9520, L500.4100, L500.4050, L100.0100 #### [facility] [address] [place], [address] Sodium [Moles/Vol] 139 mmol/L Normal 133-145 [facility] Comment on above: Order Comment: Order Date: 04/28/24 Order Info: 0184-1 - CBCD Performed By: #### L 506.1000, L506.0400, L501.9985, L501.9520, L500.4100, L500.4050, L100.0100 #### [facility] [address] [place], [address] T PROT 8.0 g/dL Normal 5.9-8.4 [facility] Comment on above: Order Comment: Order Date: 04/28/24 Order Info: 0184-1 - CBCD Performed By: #### L 506.1000, L506.0400, L501.9985, L501.9520, L500.4100, L500.4050, L100.0100 #### [facility] [address] [place], [address] Urea nitrogen [Mass/Vol] 24 mg/dL High 4-19 [facility] Comment on above: Order Comment: Order Date: 04/28/24 Order Info: 0184-1 - CBCD Performed By: #### L 506.1000, L506.0400, L501.9985, L501.9520, L500.4100, L500.4050, L100.0100 #### [facility] [address] [place], [place], [id number] Eosinophil percentageOrdered By: Mark Phipps on 08-12-2024 Eosinophils/100 WBC (Bld) 4.9 % 0-5 [facility] Erythrocyte distribution wid th ratioOrdered By: Mark Phipps on 08-12-2024 Erythrocyte distribution width (RBC) [Ratio] 12.8 % 11.6-14.6 [facility] Erythrocyte distribution wid th standard deviationOrdered By: Mark Phipps on 08-12-2024 Erythrocyte distribution width (RBC) [Ratio] 43.3 fl 35.1-43.9 [facility] Glomerular filtration rate ( GFR) estimation/1.73 sq m using serum, plasma, or whole bOrdered By: Mark Phipps on 08-12-2024 GFR/1.73 sq M.predicted among non-blacks MDRD (S/P/Bld) [Vol rate/Area] 87 mL/min/{1.73_m2} >60 [facility] Comment on above: mL/min/1.73m2 CKD-EP I Creatinine Equation (2020) Hematocrit Auto (Bld) [Volum e fraction]Ordered By: Mark Phipps on 08-12-2024 Hematocrit (Bld) [Volume fraction] 44.6 % 37-47 [facility] Hemoglobin A1con 08-12-2024 HbA1c (Bld) [Mass fraction] 6.0 % High <=5.6 [facility] Comment on above: Order Comment: Order Date: 04/28/24 Order Info: 0184-1 - CBCD Result Comment: Norm al < 5.7 % Prediabetic 5.7 - 6.4 % Diabetic >or= 6.5 % Please note range changes. Performed By: #### L 506.1000, L506.0400, L501.9985, L501.9520, L500.4100, L500.4050, L100.0100 #### [facility] [address] [place] [address]. [place], [address] Hemoglobin A1c percentageOrd ered By: Mark Phipps on 08-12-2024 HbA1c (Bld) [Mass fraction] 6.0 % High <5.7 [facility] Comment on above: Normal < 5.7 % Predi abetic 5.7 - 6.4 % Diabetic >or= 6.5 % Please note range changes. Hemoglobin measurementOrdere d By: Mark Phipps on 08-12-2024 Hemoglobin (Bld) [Mass/Vol] 14.5 g/dL 12.0-15.0 [facility] Immature granulocytes/100 WB C Auto (Bld)Ordered By: Mark Phipps on 08-12-2024 Immature granulocytes/100 WBC (Bld) 0.400 % 0.0-0.9 [facility] Comment on above: IG% - Immature Granu locytes (promyelocytes, myelocytes and metamyelocytes) > 1% indicates that a LEFT SHIFT is Present. Ketones Test strip Ql (U)Ord ered By: Mark Phipps on 08-12-2024 Ketones Ql (U) Negative Negative [facility] LDL calc ser/plasOrdered By: Mark Phipps on 08-12-2024 Cholesterol in LDL [Mass/Vol] 127 mg/dL [facility] Comment on above: Hsfuqmpybk=085-387 m g/dL & Higher Qomb=760 mg/dL or greater Laboratory - Chemistry and C hemistry - challengeOrdered By: Mark Phipps on 08-12-2024 AST [Catalytic activity/Vol] 22 U/L <32 [facility] Lipid Profileon 08-12-2024 CHOL:HDL 3.64 Normal [facility] Comment on above: Order Comment: Order Date: 04/28/24 Order Info: 0184-1 - CBCD Performed By: #### L 506.1000, L506.0400, L501.9985, L501.9520, L500.4100, L500.4050, L100.0100 #### [facility] [address] [place], [place], [id number] Cholesterol [Mass/Vol] 228 mg/dL High <=200 [facility] Comment on above: Order Comment: Order Date: 04/28/24 Order Info: 0184-1 - CBCD Result Comment: Chol esterol level, Desirable <200 mg/dL Borderline high cholesterol 200-239 mg/dL High cholesterol >=240 mg/dL Recommendations of the NCEP Adult Treatment Panel for the following risk-cutoff thresholds for the [place] population. Performed By: #### L 506.1000, L506.0400, L501.9985, L501.9520, L500.4100, L500.4050, L100.0100 #### [facility] [address] [place], [address] Cholesterol in HDL [Mass/Vol] 63 mg/dL Normal [facility] Comment on above: Order Comment: Order Date: 04/28/24 Order Info: 0184-1 - CBCD Result Comment: Josie onal Cholesterol Education Program (NCEP) guidelines: <40 mg/dL: Low HDL-cholesterol (major risk factor for CHD) >= 60 mg/dL: High HDL-cholesterol (negative risk factor for CHD) HDL-cholesterol is affected by a number of factors, e.g. smoking, exercise, hormones, sex and age. Performed By: #### L 506.1000, L506.0400, L501.9985, L501.9520, L500.4100, L500.4050, L100.0100 #### [facility] [address] [place], [address] Cholesterol in LDL [Mass/Vol] 127 mg/dL Normal [facility] Comment on above: Order Comment: Order Date: 04/28/24 Order Info: 0184-1 - CBCD Result Comment: Bord ldxccj=284-746 mg/dL Higher Rsjl=707 mg/dL or greater Performed By: #### L 506.1000, L506.0400, L501.9985, L501.9520, L500.4100, L500.4050, L100.0100 #### [facility] [address] [place], [address] Cholesterol in VLDL [Mass/Vol] 38 mg/dL Normal 5-40 [facility] Comment on above: Order Comment: Order Date: 04/28/24 Order Info: 0184-1 - CBCD Performed By: #### L 506.1000, L506.0400, L501.9985, L501.9520, L500.4100, L500.4050, L100.0100 #### [facility] [address] [place], [address] Triglyceride [Mass/Vol] 192 mg/dL Normal [facility] Comment on above: Order Comment: Order Date: 04/28/24 Order Info: 0184-1 - CBCD Result Comment: The drugs N-Acetylcysteine and Metamizole may falsely depress this assay. Normal range: <150 mg/dL Borderline High: 150-199 mg/dL High: 200-499 mg/dL Very High: >500 mg/dL Performed By: #### L 506.1000, L506.0400, L501.9985, L501.9520, L500.4100, L500.4050, L100.0100 #### [facility] [address] [place], [address] MCV (mean corpuscular volume ) determinationOrdered By: Mark Phipps on 08-12-2024 MCV (RBC) [Entitic vol] 91.4 fL 81-99 [facility] Magnesiumon 08-12-2024 Magnesium [Mass/Vol] 2.3 mg/dL High 1.5-2.2 [facility] Comment on above: Order Comment: Order Date: 04/28/24 Order Info: 0184-1 - CBCD Performed By: #### L 506.1000, L506.0400, L501.9985, L501.9520, L500.4100, L500.4050, L100.0100 #### [facility] [address] [place], [address] Magnesium measurement (mass/ volume)Ordered By: Mark Phipps on 08-12-2024 Magnesium (Unsp spec) [Mass/Vol] 2.3 mg/dL High 1.5-2.2 [facility] Mean corpuscular hemoglobin (MCH) determinationOrdered By: Mark Phipps on 08-12-2024 MCH (RBC) [Entitic mass] 29.7 pg 27.0-32.0 [facility] Mean corpuscular hemoglobin concentration (MCHC) determinationOrdered By: Mark Phipps on 08-12-2024 MCHC (RBC) [Mass/Vol] 32.5 g/dL 32-36 [facility] Mean platelet volume determi nationOrdered By: Mark Phipps on 08-12-2024 Platelet mean volume (Bld) [Entitic vol] 10.3 fL 6.2-12.0 [facility] Microscopic analysis of urin e for red blood cells (RBC)Ordered By: Mark Phipps on 08-12-2024 Microscopic analysis of urine for red blood cells (RBC) 0 SEEN /hpf 0-5 [facility] Monocyte percentageOrdered B y: Mark Phipps on 08-12-2024 Monocytes/100 WBC (Bld) 9.6 % 0-10 [facility] Mucus LM Ql (Urine sed)Order ed By: Mark Phipps on 08-12-2024 Mucus Ql (Urine sed) 0 SEEN /hpf [facility] Neutrophil percentageOrdered By: Mark Phipps on 08-12-2024 Neutrophils/100 WBC (Bld) 56.9 % 47-70 [facility] Nitrite Test strip Ql (U)Ord ered By: Mark Phipps on 08-12-2024 Nitrite Ql (U) Negative Negative [facility] Nucleated red blood cell per centageOrdered By: Mark Phipps on 08-12-2024 Nucleated RBC/100 WBC (Bld) [Ratio] 0 % 0-5 [facility] Platelet countOrdered By: Jody Phipps on 08-12-2024 Platelets (Bld) [#/Vol] 271 10*3/uL 150-450 [facility] Potassium measurement (mass/ volume)Ordered By: Mark Phipps on 08-12-2024 Potassium (Unsp spec) [Mass/Vol] 4.5 mmol/L 3.3-5.1 [facility] Protein Test strip Ql (U)Ord ered By: Mark Phipps on 08-12-2024 Protein Ql (U) 15 mg/dl High Negative [facility] RBC Auto (Bld) [#/Vol]Ordere d By: Mark Phpips on 08-12-2024 RBC (Bld) [#/Vol] 4.88 10*6/uL 4.2-5.4 [facility] Screening total cholesterol/ high density lipoprotein (HDL) cholesterol ratioOrdered By: Mark Phipps on 08-12-2024 Cholesterol.total/Choles terol in HDL [Mass ratio] 3.64 {ratio} [facility] Serum creatinine measurement (mass/volume)Ordered By: Mark Phipps on 08-12-2024 Creatinine [Mass/Vol] 0.75 mg/dL 0.70-1.20 [facility] Serum globulin measurementOr dered By: Mark Phipps on 08-12-2024 Globulin (S) [Mass/Vol] 3.7 g/dL 2.2-4.2 [facility] Serum glucose measurement (m ass/volume)Ordered By: Mark Phipps on 08-12-2024 Glucose [Mass/Vol] 110 mg/dL High 70-99 [facility] Serum or plasma alanine reid otransferase (ALT) measurementOrdered By: Mark Phipps on 08-12-2024 ALT [Catalytic activity/Vol] 20 U/L <35 [facility] Serum or plasma albumin cosmo urement (mass/volume)Ordered By: Mark Phipps on 08-12-2024 Albumin [Mass/Vol] 4.3 g/dL 3.4-4.8 [facility] Serum or plasma albumin/glob ulin mass ratioOrdered By: Mark Phipps on 08-12-2024 Albumin/Globulin [Mass ratio] 1.2 {ratio} 0.9-2.4 [facility] Serum or plasma alkaline quinn sphatase measurementOrdered By: Mark Phpips on 08-12-2024 ALP [Catalytic activity/Vol] 126 U/L High 35-104 [facility] Serum or plasma calcium cosmo urement (mass/volume)Ordered By: Mark Phipps on 08-12-2024 Calcium [Mass/Vol] 9.8 mg/dL 7.6-11.0 [facility] Serum or plasma cholesterol in HDL measurement (mass/volume)Ordered By: Mark Phipps on 08-12-2024 Cholesterol in HDL [Mass/Vol] 63 mg/dL >40 [facility] Comment on above: National Cholesterol Education Program (NCEP) guidelines:<40 mg/dL: Low HDL-cholesterol (major risk factor for CHD)>= 60 mg/dL: High HDL-cholesterol (negative risk factor for CHD)HDL-cholesterol is affected by a number of factors, e.g. smoking, exercise, hormones, sex and age. Serum or plasma cholesterol measurement (mass/volume)Ordered By: Mark Phipps on 08-12-2024 Cholesterol [Mass/Vol] 228 mg/dL High <201 [facility] Comment on above: Cholesterol level, D esirable <200 mg/dLBorderline high cholesterol 200-239 mg/dLHigh cholesterol >=240 mg/dLRecommendations of the NCEP Adult Treatment Panel for the following risk-cutoff thresholds for the [place] population. Serum or plasma urea nitroge n measurement (mass/volume)Ordered By: Mark Phipps on 08-12-2024 Urea nitrogen [Mass/Vol] 24 mg/dL High 4-19 [facility] Sodium levelOrdered By: Mark Phipps on 08-12-2024 Sodium [Moles/Vol] 139 mmol/L 133-145 [facility] Squamous epithelial cells de tection in urine sediment by light microscopyOrdered By: Mark Phipps on 08-12-2024 Epithelial cells.squamous LM Ql (Urine sed) 0-5 SEEN /hpf 5-10 [facility] T4 Free Directon 08-12-2024 T4 FREE DIRECT 1.10 ng/dL Normal 0.76-1.46 [facility] Comment on above: Order Comment: Order Date: 04/28/24 Order Info: 0184-1 - CBCD Performed By: #### L 506.1000, L506.0400, L501.9985, L501.9520, L500.4100, L500.4050, L100.0100 #### [facility] [address] [place], [address] T4 freeOrdered By: Mark aguirre on 08-12-2024 Free T4 [Mass/Vol] 1.10 ng/dL 0.76-1.46 [facility] TSH DL <= 0.005 mIU/L QnOrde red By: Mark Phipps on 08-12-2024 TSH Qn 3.830 uIU/mL 0.300-4.200 [facility] Thyroid Stim Hormone (TSH)on 08-12-2024 TSH 3.830 uIU/mL Normal 0.300-4.200 [facility] Comment on above: Order Comment: Order Date: 04/28/24 Order Info: 0184-1 - CBCD Performed By: #### L 506.1000, L506.0400, L501.9985, L501.9520, L500.4100, L500.4050, L100.0100 #### [facility] [address] [place], [address] Total proteinOrdered By: Steven Phipps on 08-12-2024 Protein [Mass/Vol] 8.0 g/dL 5.9-8.4 [facility] Triglycerides measurementOrd ered By: Mark Phipps on 08-12-2024 Triglyceride [Mass/Vol] 192 mg/dL <199 [facility] Comment on above: The drugs N-Acetylcy steine and Metamizole may falsely depress this assay. Normal range: <150 mg/dLBorderline High: 150-199 mg/dLHigh: 200-499 mg/dLVery High: >500 mg/dL Urinalysis, Completeon 08-12 EPI,SQUAMOUS 0-5 SEEN Normal 5-10 [facility] Comment on above: Order Comment: Order Date: 04/28/24 Order Info: 0184-1 - CBCD Performed By: #### L 506.1000, L506.0400, L501.9985, L501.9520, L500.4100, L500.4050, L100.0100 #### [facility] [address] [place], [address] WBC 0-5 SEEN Normal 0-5 [facility] Comment on above: Order Comment: Order Date: 04/28/24 Order Info: 0184-1 - CBCD Performed By: #### L 506.1000, L506.0400, L501.9985, L501.9520, L500.4100, L500.4050, L100.0100 #### [facility] [address] [place], [address] BACTERIA 0 SEEN Normal None Seen [facility] Comment on above: Order Comment: Order Date: 04/28/24 Order Info: 0184-1 - CBCD Performed By: #### L 506.1000, L506.0400, L501.9985, L501.9520, L500.4100, L500.4050, L100.0100 #### [facility] [address] [place], [address] Mucus Ql (Urine sed) 0 SEEN Normal [facility] Comment on above: Order Comment: Order Date: 04/28/24 Order Info: 0184-1 - CBCD Performed By: #### L 506.1000, L506.0400, L501.9985, L501.9520, L500.4100, L500.4050, L100.0100 #### [facility] [address] [place], [address] RBC 0 SEEN Normal 0-5 [facility] Comment on above: Order Comment: Order Date: 04/28/24 Order Info: 0184-1 - CBCD Performed By: #### L 506.1000, L506.0400, L501.9985, L501.9520, L500.4100, L500.4050, L100.0100 #### [facility] [address] [place], [place], [address] Urine clarityOrdered By: Steven Phipps on 08-12-2024 Clarity (U) Clear Clear [facility] Urine color determinationOrd ered By: Mark Phipps on 08-12-2024 Color (U) Yellow Yellow [facility] Urine glucose detectionOrder ed By: Mark Phipps on 08-12-2024 Glucose Ql (U) Normal mg/dl Normal [facility] Urine leukocyte esterase det ection by dipstickOrdered By: Mark Phipps on 08-12-2024 Leukocyte esterase Test strip Ql (U) 25 /ul High Negative [facility] Urine pHOrdered By: Mark daily on 08-12-2024 pH (U) 5.0 [pH] 5.0 - 8.0 [facility] Urine sediment bacteria coun t by microscopy (number/high power field)Ordered By: Mark Phipps on 08-12-2024 Bacteria LM.HPF (Urine sed) [#/Area] 0 /[HPF] None Seen [facility] Urine specific gravity measu rementOrdered By: Mark Phipps on 08-12-2024 Specific gravity (U) [Rel density] 1.020 1.002-1.030 [facility] Urine urobilinogen measureme ntOrdered By: Mark Phipps on 08-12-2024 Urobilinogen Ql (U) Normal mg/dl Normal [facility] White blood cell (WBC) count Ordered By: Mark Phipps on 08-12-2024 WBC (Bld) [#/Vol] 7.5 10*3/uL 4.4-11.0 [facility] White blood cell countOrdere d By: Mark Phipps on 08-12-2024 White blood cell count 0-5 SEEN /hpf 0-5 [facility] .Auto Diffon 08-10-2024 Basophil, Absolute 0.1 10 3/mcL Normal 0.0-0.3 [facility] Comment on above: Performed By: #### C BC, ADIFF, GFR, ANEU, CMP, APTT #### [address] [address] Basophils/100 WBC (Bld) 0.7 % Normal 0.0-2.5 [facility] Comment on above: Performed By: #### C BC, ADIFF, GFR, ANEU, CMP, APTT #### [address] [address] Eosinophil, Absolute 0.4 10 3/mcL Normal 0.0-0.7 [facility] Comment on above: Performed By: #### C BC, ADIFF, GFR, ANEU, CMP, APTT #### [address] [address] Eosinophils/100 WBC (Bld) 5.5 % Normal 0.0-6.0 [facility] Comment on above: Performed By: #### C BC, ADIFF, GFR, ANEU, CMP, APTT #### [address] [address] Lymphocyte, Absolute 2.6 10 3/mcL Normal 0.9-4.3 [facility] Comment on above: Performed By: #### C BC, ADIFF, GFR, ANEU, CMP, APTT #### [address] [address] Lymphocytes/100 WBC (Bld) 32.0 % Normal 20.0-40.0 [facility] Comment on above: Performed By: #### C BC, ADIFF, GFR, ANEU, CMP, APTT #### [address] [address] Monocyte, Absolute 0.9 10 3/mcL Normal 0.1-1.4 [facility] Comment on above: Performed By: #### C BC, ADIFF, GFR, ANEU, CMP, APTT #### [address] [address] Monocytes/100 WBC (Bld) 10.7 % Normal 2.0-13.0 [facility] Comment on above: Performed By: #### C BC, ADIFF, GFR, ANEU, CMP, APTT #### [address] [address] Neutrophils/100 WBC (Bld) 51.1 % Normal 50.0-75.0 [facility] Comment on above: Performed By: #### C BC, ADIFF, GFR, ANEU, CMP, APTT #### [address] [address] .GFRon 08-10-2024 Estimated Glomerular Filtration Rate 83 ml/min/1.73sqm Normal [facility] Comment on above: Result Comment: Stages of Chronic Kidney Disease (CKD) Stage Description eGFR(ml/min/1.73 sq.m.) CKD 1 Normal kidney function or >=90 normal kindney function with possible kidney damage (ex. Proteinuria) CKD 2 Kidney damage with mild loss 60-89 of kidney function CKD 3a Mild to moderate loss of kidney 45-59 function CKD 3b Moderate to severe loss of 30-44 of kindey function CKD 4 Severe loss of kidney function 15-29 CKD 5 Kidney failure <15 Note: (go live 2024) the eGFR calculation was updated to the 2020 CKD-EPI creatinine equation without a race factor to calculate the eGFR results. Performed By: #### C BC, ADIFF, GFR, ANEU, CMP, APTT #### [address] [address] .NEUABSon 08-10-2024 Neutrophil, Absolute 4.2 10 3/mcL Normal 2.3-8.1 [facility] Comment on above: Performed By: #### C BC, ADIFF, GFR, ANEU, CMP, APTT #### [address] [address] A1Con 08-10-2024 Glucose [Mass/Vol] 123 mg/dL Normal [facility] Comment on above: Result Comment: Marilyn mated Average Glucose calculated by equation ((28.7xA1C)-46.7) Estimated average glucose (eAG) is a calculated value from Hemoglobin A1C and is passenger relations representative of the average blood glucose level in the last 2-3 month period. Normal range: less than 114 mg/dL Performed By: #### A 1C, PRO #### [address] [address] #### PRALB #### [address] [address] HbA1c (Bld) [Mass fraction] 5.9 % Normal 4.3-6.4 [facility] Comment on above: Performed By: #### A 1C, PRO #### [place] [address] #### PRALB #### [address] [address] APTTon 08-10-2024 aPTT Coag (Bld) [Time] 31.6 s Normal 25.0-35.0 [facility] Comment on above: Result Comment: For Heparin anticoagulation therapy, the recommended therapeutic range is: 45.4-75.9 seconds. Patients on heparin therapy may have an extreme result. Performed By: #### C BC, ADIFF, GFR, ANEU, CMP, APTT #### [address] [address] CBCon 08-10-2024 Erythrocyte distribution width (RBC) [Ratio] 13.6 % Normal 11.5-15.5 [facility] Comment on above: Performed By: #### C BC, ADIFF, GFR, ANEU, CMP, APTT #### [place] [id number] Hematocrit (Bld) [Volume fraction] 44.6 % Normal 34.0-46.0 [facility] Comment on above: Performed By: #### C BC, ADIFF, GFR, ANEU, CMP, APTT #### [place] [address] Hgb 15.0 G/dL Normal 12.0-16.0 [facility] Comment on above: Performed By: #### C BC, ADIFF, GFR, ANEU, CMP, APTT #### [place] [address] MCH (RBC) [Entitic mass] 30.1 pg Normal 27.0-33.0 [facility] Comment on above: Performed By: #### C BC, ADIFF, GFR, ANEU, CMP, APTT #### [place] [address] MCHC 33.6 G/dL Normal 32.0-36.0 [facility] Comment on above: Performed By: #### C BC, ADIFF, GFR, ANEU, CMP, APTT #### [place] [id number] MCV (RBC) [Entitic vol] 89.6 fL Normal 80.0-99.0 [facility] Comment on above: Performed By: #### C BC, ADIFF, GFR, ANEU, CMP, APTT #### [place] [id number] Platelet 242 10 3/mcL Normal 150-450 [facility] Comment on above: Performed By: #### C BC, ADIFF, GFR, ANEU, CMP, APTT #### [place] [id number] Platelet mean volume (Bld) [Entitic vol] 8.3 fL Normal 6.6-10.5 [facility] Comment on above: Performed By: #### C BC, ADIFF, GFR, ANEU, CMP, APTT #### [place] [address] RBC 4.98 10 6/mcL Normal 4.10-5.30 [facility] Comment on above: Performed By: #### C BC, ADIFF, GFR, ANEU, CMP, APTT #### [place] [address] WBC 8.2 10 3/mcL Normal 4.5-10.8 [facility] Comment on above: Performed By: #### C BC, ADIFF, GFR, ANEU, CMP, APTT #### [place] [address] CMPon 08-10-2024 Albumin Level 3.8 G/dL Normal 3.4-4.8 [facility] Comment on above: Performed By: #### C BC, ADIFF, GFR, ANEU, CMP, APTT #### [place] [address] Albumin/Globulin [Mass ratio] 0.9 {ratio} Low 1.1-2.5 [facility] Comment on above: Performed By: #### C BC, ADIFF, GFR, ANEU, CMP, APTT #### [place] [address] ALP [Catalytic activity/Vol] 130 U/L Normal 40-135 [facility] Comment on above: Performed By: #### C BC, ADIFF, GFR, ANEU, CMP, APTT #### [place] [address] ALT [Catalytic activity/Vol] 28 U/L Normal 14-59 [facility] Comment on above: Performed By: #### C BC, ADIFF, GFR, ANEU, CMP, APTT #### [place] [address] AST [Catalytic activity/Vol] 21 U/L Normal 10-40 [facility] Comment on above: Performed By: #### C BC, ADIFF, GFR, ANEU, CMP, APTT #### [address] [address] Bili Total 0.2 mg/dL Normal 0.2-1.0 [facility] Comment on above: Result Comment: Use of this assay is not recommended for patients undergoing treatment with eltrombopag due to the potential for falsely elevated results. Performed By: #### C BC, ADIFF, GFR, ANEU, CMP, APTT #### [place] [address] BUN/Creatinine Ratio 24 ratio Normal 7-27 [facility] Comment on above: Performed By: #### C BC, ADIFF, GFR, ANEU, CMP, APTT #### [address] [address] Calcium [Mass/Vol] 10.2 mg/dL Normal 8.4-10.2 [facility] Comment on above: Performed By: #### C BC, ADIFF, GFR, ANEU, CMP, APTT #### [place] [address] Chloride [Moles/Vol] 104 mmol/L Normal 98-107 [facility] Comment on above: Performed By: #### C BC, ADIFF, GFR, ANEU, CMP, APTT #### [address] [address] CO2 [Moles/Vol] 25 mmol/L Normal 23-31 [facility] Comment on above: Performed By: #### C BC, ADIFF, GFR, ANEU, CMP, APTT #### [address] [address] Creatinine [Mass/Vol] 0.78 mg/dL Normal 0.51-0.95 [facility] Comment on above: Performed By: #### C BC, ADIFF, GFR, ANEU, CMP, APTT #### [address] [address] Electrolyte Balance 10.0 mEq/L Normal 4.0-15.0 [facility] Comment on above: Performed By: #### C BC, ADIFF, GFR, ANEU, CMP, APTT #### [address] [address] Globulin 4.3 G/dL Normal 2.7-4.4 [facility] Comment on above: Performed By: #### C BC, ADIFF, GFR, ANEU, CMP, APTT #### [address] [address] Glucose [Mass/Vol] 99 mg/dL Normal 80-115 [facility] Comment on above: Performed By: #### C BC, ADIFF, GFR, ANEU, CMP, APTT #### [address] [address] Potassium [Moles/Vol] 4.2 mmol/L Normal 3.5-5.1 [facility] Comment on above: Performed By: #### C BC, ADIFF, GFR, ANEU, CMP, APTT #### [address] [address] Sodium [Moles/Vol] 139 mmol/L Normal 136-145 [facility] Comment on above: Performed By: #### C BC, ADIFF, GFR, ANEU, CMP, APTT #### [address] [address] Total Protein 8.1 G/dL Normal 6.4-8.2 [facility] Comment on above: Performed By: #### C BC, ADIFF, GFR, ANEU, CMP, APTT #### [address] [address] Urea nitrogen [Mass/Vol] 19 mg/dL High 7-18 [facility] Comment on above: Performed By: #### C BC, ADIFF, GFR, ANEU, CMP, APTT #### [address] [address] LABORATORYOrdered By: SYSTEM SYSTEM on 08-10-2024 Glucose [Mass/Vol] 123 mg/dL Invalid Interpretation Code AO Chemistry S Comment on above: Interpretive Data: E stimated average glucose (eAG) is a calculated value from Hemoglobin A1C and is passenger relations representative of the average blood glucose level in the last 2-3 month period. Normal range: less than 114 mg/dL HbA1c (Bld) [Mass fraction] 5.9 % Normal 4.3 - 6.4 % AO ADM SS INR Coag (PPP) [Relative time] 1.0 {INR} Invalid Interpretation Code AO [facility] SS Comment on above: Interpretive Data: Urszula solorio [employer] (CHEST, 1991, 102:312S-25S) recommended therapeutic range for oral anticoagulant therapy is: LOW RISK: Prophylaxis of venous thrombosis INR: 2.0-3.0 Treatment of pulmonary embolism 2.0-3.0 Prevention of systemic embolism 2.0-3.0 HIGH RISK: Mechanical prosthetic valves 2.5-3.5 Prealbumin [Mass/Vol] 22.7 mg/dL Normal 10.0 - 40.0 mg/dL AH ADM SS Comment on above: Interpretive Data: * *Note - New Reference Range in effect 19 PT Coag (PPP) [Time] 11.2 s Normal 9.0 - 1 4.4 seconds AO [facility] SS Albumin BCP dye [Mass/Vol] 3.8 G/dL Normal 3.4 - 4.8 G/dL AO ADM SS Albumin/Globulin [Mass ratio] 0.9 {ratio} Low 1.1 - 2.5 ratio AO ADM SS ALP [Catalytic activity/Vol] 130 U/L Normal 40 - 135 U/L AO ADM SS ALT With P-5'-P [Catalytic activity/Vol] 28 U/L Normal 14 - 59 U/L AO ADM SS aPTT Coag (PPP) [Time] 31.6 s Normal 25.0 - 35.0 seconds AO [facility] SS Comment on above: Interpretive Data: F or Heparin anticoagulation therapy, the recommended therapeutic range is: 45.4-75.9 seconds. Patients on heparin therapy may have an extreme result. AST With P-5'-P [Catalytic activity/Vol] 21 U/L Normal 10 - 40 U/L AO ADM SS Basophils (Bld) [#/Vol] 0.1 103/mcL Normal 0.0 - 0.3 10^3/mcL AO Workflow SS Basophils/100 WBC (Bld) 0.7 % Normal 0.0 - 2.5 % AO Workflow SS Bilirubin [Mass/Vol] 0.2 mg/dL Normal 0.2 - 1 .0 mg/dL AO ADM SS Comment on above: Interpretive Data: U se of this assay is not recommended for patients undergoing treatment with eltrombopag due to the potential for falsely elevated results. Calcium [Mass/Vol] 10.2 mg/dL Normal 8.4 - 10. 2 mg/dL AO ADM SS Chloride [Moles/Vol] 104 mmol/L Normal 98 - 10 7 mmol/L AO ADM SS CO2 [Moles/Vol] 25 mmol/L Normal 23 - 31 mmol/L AO ADM SS Creatinine [Mass/Vol] 0.78 mg/dL Normal 0.51 - 0.95 mg/dL AO ADM SS Electrolyte Balance 10.0 mEq/L Normal 4.0 - 15 .0 mEq/L AO ADM SS Eosinophil, Absolute 0.4 103/mcL Normal 0.0 - 0 .7 10^3/mcL AO Workflow SS Eosinophils/100 WBC (Bld) 5.5 % Normal 0.0 - 6.0 % AO Workflow SS Erythrocyte distribution width (RBC) [Ratio] 13.6 % Normal 11.5 - 15.5 % AO Workflow SS Estimated Glomerular Filtration Rate 83 ml/min/1.73sqm Invalid Interpretation Code AO Chemistry S Comment on above: Interpretive Data: Stages of Chronic Kidney Disease (CKD) Stage Description eGFR(ml/min/1.73 sq.m.) CKD 1 Normal kidney function or >=90 normal kindney function with possible kidney damage (ex. Proteinuria) CKD 2 Kidney damage with mild loss 60-89 of kidney function CKD 3a Mild to moderate loss of kidney 45-59 function CKD 3b Moderate to severe loss of 30-44 of kindey function CKD 4 Severe loss of kidney function 15-29 CKD 5 Kidney failure <15 Note: (go live 2024) the eGFR calculation was updated to the 2020 CKD-EPI creatinine equation without a race factor to calculate the eGFR results. Globulin 4.3 G/dL Normal 2.7 - 4.4 G/dL AO ADM SS Glucose [Mass/Vol] 99 mg/dL Normal 80 - 115 mg/dL AO ADM SS Hematocrit (Bld) [Volume fraction] 44.6 % Normal 34.0 - 46.0 % AO Workflow SS Hemoglobin (Bld) [Mass/Vol] 15.0 G/dL Normal 12.0 - 16.0 G/dL AO Workflow SS Lymphocytes (Bld) [#/Vol] 2.6 103/mcL Normal 0.9 - 4.3 10^3/mcL AO Workflow SS Lymphocytes/100 WBC (Bld) 32.0 % Normal 20.0 - 40.0 % AO Workflow SS MCH (RBC) [Entitic mass] 30.1 pg Normal 27. 0 - 33.0 pg AO Workflow SS MCHC 33.6 G/dL Normal 32.0 - 36.0 G/dL AO Workflow SS MCV (RBC) [Entitic vol] 89.6 fL Normal 80.0 - 99.0 fL AO Workflow SS Monocytes (Bld) [#/Vol] 0.9 103/mcL Normal 0.1 - 1.4 10^3/mcL AO Workflow SS Monocytes/100 WBC (Bld) 10.7 % Normal 2.0 - 13.0 % AO Workflow SS Neutrophils (Bld) [#/Vol] 4.2 103/mcL Normal 2.3 - 8.1 10^3/mcL AO Workflow SS Neutrophils/100 WBC (Bld) 51.1 % Normal 50.0 - 75.0 % AO Workflow SS Platelet mean volume (Bld) [Entitic vol] 8.3 fL Normal 6.6 - 10.5 fL AO Workflow SS Platelets (Bld) [#/Vol] 242 103/mcL Normal 150 - 450 10^3/mcL AO Workflow SS Potassium [Moles/Vol] 4.2 mmol/L Normal 3.5 - 5.1 mmol/L AO ADM SS Protein [Mass/Vol] 8.1 G/dL Normal 6.4 - 8.2 G/dL AO ADM SS RBC (Bld) [#/Vol] 4.98 106/mcL Normal 4.10 - 5.3 0 10^6/mcL AO Workflow SS Sodium [Moles/Vol] 139 mmol/L Normal 136 - 145 mmol/L AO ADM SS Urea nitrogen [Mass/Vol] 19 mg/dL High 7 - 18 mg/d L AO ADM SS Urea nitrogen/Creatinine [Mass ratio] 24 ratio Normal 7 - 27 ratio AO ADM SS WBC (Bld) [#/Vol] 8.2 103/mcL Normal 4.5 - 10.8 10^3/mcL AO Workflow SS PRALBon 08-10-2024 Prealbumin [Mass/Vol] 22.7 mg/dL Normal 10.0-40.0 [facility] Comment on above: Result Comment: No te - New Reference Range in effect 19 Performed By: #### A 1C, PRO #### [address] [address] #### PRALB #### [address] [address] PROon 08-10-2024 PT Coag (PPP) [Time] 11.2 s Normal 9.0-14.4 [facility] Comment on above: Performed By: #### A 1C, PRO #### [address] [address] #### PRALB #### [place] [address] PT International Ratio 1.0 Normal [facility] Comment on above: Result Comment: [employer] (CHEST, 1992, 102:312S-25S) recommended therapeutic range for oral anticoagulant therapy is: LOW RISK: Prophylaxis of venous thrombosis INR: 2.0-3.0 Treatment of pulmonary embolism 2.0-3.0 Prevention of systemic embolism 2.0-3.0 HIGH RISK: Mechanical prosthetic valves 2.5-3.5 Performed By: #### A 1C, PRO #### [place] [id number] #### PRALB #### [address] [address] CNOVon 05-20-2024 CNOV Office Visit (GENSWS) ---- ROCKY MORRISON ([id number]) 1955 F Date Time Provider Department 05/20/24 9:45 AM ANSHUL MONTGOMERY During your visit today, we recorded the following information about you: Geoff Law LPN 05/20/2024 12:44 PM Signed Patient left without having intake completed after having visit with provider. CAITLYN Cage Richard T, MD 05/20/2024 12:44 PM Signed HISTORY AND PHYSICAL Rocky Morrison 1955 REFERRING PHYSICIAN: Mark Phipps MD CHIEF COMPLAINT: Consult (Gallstones) HPI: Rocky is a 68 year old female with a complaint of right upper quadrant pain. The patient has had symptoms of right upper quadrant pain for some time. The symptoms occur on an almost daily basis. She notes transient discomfort that last a few minutes. This will occur after bending over or twisting. This does not seem to be related to eating food. This is not truly colic in nature The patient was seen by her primary care physician. Rocky underwent an ultrasound. These tests demonstrated cholelithiasis and sludge. The patient is referred for evaluation and treatment. The patient is being seen by me today at the request of Dr. Mark Phipps MD, for my opinion and advice regarding atypical right upper quadrant pain and cholelithiasis/slud ge. 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 OPERATIONS: PAST SURGICAL HISTORY Procedure Laterality Date ADENOIDECTOMY PRIMARY Adenoidectomy ARTHROSCOPY KNEE DIAGNOSTIC W/WO SYNOVIAL BX SPX Arthroscopy, knee right COLONOSCOPY FLX DX W/COLLJ SPEC WHEN PFRMD 07/25/09 Normal PAST SURGICAL HISTORY OF FOOT, both - heel spurs PAST SURGICAL HISTORY OF Right great toe correction THYROID RIGHT FINE NEEDLE ASPIRATION 09/23/08 TONSILLECTOMY PRIMARY/SECONDARY Tonsillectomy TOTAL ABDOMINAL HYSTERECT W/WO RMVL TUBE OVARY Hysterectomy, TAHBSO for fibroids AND DUB CURRENT MEDICATIONS: Current Outpatient Medications Medication Sig Dispense Refill budesonide-formoter ol (SYMBICORT) 80-4.5 mcg/actuation inhaler Inhale 2 Puffs as instructed two times a day as needed. cholecalciferol (VITAMIN D-3) 50 mcg (2,000 unit) tablet Take 2,000 Units by mouth once daily. amLODIPine (NORVASC) 10 mg tablet Take 10 mg by mouth once daily. spironolactone (ALDACTONE) 50 mg tablet Take 50 mg by mouth once daily. albuterol HFA (PROVENTIL HFA, VENTOLIN HFA) 90 mcg/actuation inhaler Inhale 2 Puffs as instructed every 4 hours as needed. 1 Inhaler 2 ibuprofen (MOTRIN) 200 mg tablet Take 1-2 tablets by mouth every 6 hours as needed for Pain (Take with food.). 0 beclomethasone (QVAR) 80 mcg/actuation inhaler Inhale 1 Puff as instructed twice daily. 1 Inhaler 2 montelukast (SINGULAIR) 10 mg tablet Take 1 tablet by mouth daily at bedtime. 30 tablet 3 albuterol HFA (VENTOLIN HFA) 90 mcg/actuation inhaler Inhale 2 Puffs as instructed every 4 hours as needed for Wheezing/Shortness of Breath. 1 Inhaler 0 No current facility-administer ed medications for this visit. ALLERGIES: Patient has no known allergies. PERSONAL HISTORY: Social History Tobacco Use Smoking status: Never Smokeless tobacco: Never Substance Use Topics Alcohol use: Yes Comment: rarely Drug use: No FAMILY HISTORY: FAMILY HISTORY Problem Relation Age of Onset Cancer Father Prostate Stroke Father Cancer Mother BREAST and stomach cancer Thyroid Mother Heart Sister HI,DM Diabetes Sister other (Other) Sister No ovary/uterine body/colon cancer; ? sister with cervical cancer REVIEW OF SYMPTOMS: The review of systems data was entered by the nurse and reviewed by me There are no exam notes on file for this visit. PHYSICAL EXAMINATION: General: The patient is 68 year old female, well nourished, well hydrated in no acute distress. The patient is oriented to time, place, and person. VITALS: There were no vitals taken for this visit. There is no height or weight on file to calculate BMI. HEENT: Normal cephalic, ataumatic, pupils are equally round, sclera are anicteric, mucous membranes are moist, oropharynx is clear. Neck has no masses, asymmetry or lymphadenopathy. Thyroid is unremarkable. Respiratory: Clear to auscultation and percussion. Normal respiratory excursion and pattern. Cardiac: Examination is regular rate and rhythm. Abdominal exam: Normoactive bowel sounds, Soft, non tender in the right upper quadrant negative Lennon's sign, with no palpable masses. No hepatosplenomegaly. No palpable hernias. Rectal exam: exam deferred Extremities: no clubbing, cyanosis or edema. No adenopathy. Other: LABORATORY VALUES: (more content not included)... Normal [facility] Abdomen Limitedon 04-30-2024 Abdomen Limited [facility] [address] [place], [place] [address] Abdomen Limited MR#: [id number] Acct: [id number] Name: ROCKY MORRISON Rep #: [id number] : 1955 F 68 From: Tamir Larios MD PCP: Dr. Mark Phipps MD Status: [facility] Study: Abdomen Limited Date of Exam: 04/30/24 Exam# [id number] Ordering Dr: Mark Phipps MD EXAM: US Abdomen Limited, Right Upper Quadrant CLINICAL INDICATION: TECHNIQUE: Real-time ultrasound of the right upper quadrant with image documentation. COMPARISON: No relevant prior studies available. FINDINGS: LIVER: Liver measures up to 15.7 cm. Fatty infiltration of the liver. Hepatopetal portal flow in main portal vein. No intrahepatic bile duct dilation. GALLBLADDER: Cholelithiasis with gallbladder sludge. COMMON BILE DUCT: Common bile duct is prominent measuring 0.79 cm in diameter. No common bile duct stone is seen. PANCREAS: Probable fatty pancreas. RIGHT KIDNEY: Unremarkable. No stones. No hydronephrosis. The right kidney measures 9.3 x 5.0 x 4.0 cm. US/Abdomen Limited IMPRESSION: 1. Fatty infiltration of the liver. 2. Cholelithiasis with gallbladder sludge. 3. Common bile duct is prominent measuring 0.79 cm in diameter. No common bile duct stone is seen. Reading Location: [facility] CC: Dr. Mark Phipps MD Flower Grower: Signed Normal [facility] Thyroidon 04-30-2024 Thyroid [facility] [address] [place], [place] [address] Thyroid MR#: [id number] Acct: [id number] Name: ROCKY MORRISON Rep #: [id number] : 1955 F 68 From: Chintan kovacs MD PCP: Dr. Mark Phipps MD Status: REG CLI Study: Thyroid Date of Exam: 04/30/24 Exam# [id number] Ordering Dr: Mark Phipps MD PROCEDURE: THYROID REASON FOR EXAM: Thyroid nodules. TECHNIQUE: Thyroid ultrasound COMPARISON: Comparison is made with prior study dated February 07, 2022. FINDINGS: Right thyroid lobe measures 4.6 cm x 1.8 cm x 1.7 cm. Left thyroid lobe measures 4.3 cm x 1.6 cm x 1.5 cm. Isthmus thickness is5 mm. Thyroid Size: Normal Background Echotexture: Heterogeneous Thyroid Nodules: Essentially stable 2.4 cm x 1.7 cm x 1 cm complex nodule in the inferior medial aspect of the right lobe with perinodular flow. Focal calcification is seen within the. Biopsy recommended if not already performed. Stable 3 mm x 3 mm x 2 mm hypoechoic nodule in the superior pole suggestive of an adenoma. 1 cm x 0.7 cm x 0.6 cm hypoechoic nodule in the inferior isthmus of the left lobe as well as a 5 mm x 3 mm x 2 mm hypoechoic nodule in the midpole. US/Thyroid IMPRESSION: Essentially stable examination with dominant complex nodule in the inferior medial aspect of the right lobe of the thyroid. Biopsy recommended if not already performed. Reading Location: [place] [address] CC: Dr. Mark Phipps MD Flower Grower: Signed Normal [facility] Absolute lymphocyte countOrd ered By: Mark Phipps on 04-28-2024 Lymphocytes Auto (Unsp spec) [#/Vol] 1.98 10*3/uL 0.83-4.51 [facility] Absolute neutrophil countOrd ered By: Mark Phipps on 04-28-2024 Neutrophils (Bld) [#/Vol] 5.2 10*3/uL 2.0-7.7 [facility] Albumin to globulin ratioOrd ered By: Mark Phipps on 04-28-2024 Albumin/Globulin [Mass ratio] 0.8 {ratio} Low 0.9-2.4 [facility] Automated lymphocyte count a s percentage of total leukocytesOrdered By: Mark Phipps on 04-28-2024 Lymphocytes/100 WBC Auto (Unsp spec) 23.7 % 19-41 [facility] Basophil percentageOrdered B y: Mark Phipps on 04-28-2024 Basophils/100 WBC (Bld) 0.5 % 0-1 [facility] Bilirubin, totalOrdered By: Mark Phipps on 04-28-2024 Bilirubin [Mass/Vol] 0.40 mg/dL 0.20-1.00 [facility] Comment on above: For patients on eltr ombopag therapy, use of Dimension [place] TBIL is not recommended. Blood urea nitrogen (BUN)/cr eatinine ratioOrdered By: Mark Phipps on 04-28-2024 Urea nitrogen/Creatinine [Mass ratio] 30.3 mg/mg High 10-20 [facility] CBC W/Diff, Automatedon Absolute Lymph 1.98 X10 3/uL Normal 0.83-4.51 [facility] Comment on above: Order Comment: Order Date: 04/28/24 Order Info: 0184-1 - CBCD Performed By: #### L 506.1000, L506.0400, L501.9985, L501.9520, L500.4100, L500.4050, L100.0100 #### [facility] [address] [place], [place], [phone] Absolute Neut 5.2 X10 3/uL Normal 2.0-7.7 [facility] Comment on above: Order Comment: Order Date: 04/28/24 Order Info: 0184-1 - CBCD Performed By: #### L 506.1000, L506.0400, L501.9985, L501.9520, L500.4100, L500.4050, L100.0100 #### [facility] [address] [place], [place], [phone] ([phone] Basophils/100 WBC (Bld) 0.5 % Normal 0-1 [facility] Comment on above: Order Comment: Order Date: 04/28/24 Order Info: 0184-1 - CBCD Performed By: #### L 506.1000, L506.0400, L501.9985, L501.9520, L500.4100, L500.4050, L100.0100 #### [facility] [address] [place], [address] Eosinophils/100 WBC (Bld) 3.8 % Normal 0-5 [facility] Comment on above: Order Comment: Order Date: 04/28/24 Order Info: 0184-1 - CBCD Performed By: #### L 506.1000, L506.0400, L501.9985, L501.9520, L500.4100, L500.4050, L100.0100 #### [facility] [address] [place], [address] Erythrocyte distribution width (RBC) [Ratio] 12.9 % Normal 11.6-14.6 [facility] Comment on above: Order Comment: Order Date: 04/28/24 Order Info: 0184-1 - CBCD Performed By: #### L 506.1000, L506.0400, L501.9985, L501.9520, L500.4100, L500.4050, L100.0100 #### [facility] [address] [place], [address] Hematocrit (Bld) [Volume fraction] 44.1 % Normal 37-47 [facility] Comment on above: Order Comment: Order Date: 04/28/24 Order Info: 0184-1 - CBCD Performed By: #### L 506.1000, L506.0400, L501.9985, L501.9520, L500.4100, L500.4050, L100.0100 #### [facility] [address] [place], [address] Hemoglobin (Bld) [Mass/Vol] 14.4 g/dL Normal 12.0-15.0 [facility] Comment on above: Order Comment: Order Date: 04/28/24 Order Info: 0184-1 - CBCD Performed By: #### L 506.1000, L506.0400, L501.9985, L501.9520, L500.4100, L500.4050, L100.0100 #### [facility] [address] [place], [address] IG% 0.500 Normal 0.0-0.9 [facility] Comment on above: Order Comment: Order Date: 04/28/24 Order Info: 0184 - CBCD Result Comment: IG% - Immature Granulocytes (promyelocytes, myelocytes and metamyelocytes) > 1% indicates that a LEFT SHIFT is Present. Performed By: #### L 506.1000, L506.0400, L501.9985, L501.9520, L500.4100, L500.4050, L100.0100 #### [facility] [address] [place], [address] Lymphocytes/100 WBC (Bld) 23.7 % Normal 19-41 [facility] Comment on above: Order Comment: Order Date: 04/28/24 Order Info: 0184-1 - CBCD Performed By: #### L 506.1000, L506.0400, L501.9985, L501.9520, L500.4100, L500.4050, L100.0100 #### [facility] [address] [place], [address] MCH (RBC) [Entitic mass] 30.3 pg Normal 27.0-32.0 [facility] Comment on above: Order Comment: Order Date: 04/28/24 Order Info: 0184-1 - CBCD Performed By: #### L 506.1000, L506.0400, L501.9985, L501.9520, L500.4100, L500.4050, L100.0100 #### [facility] [address] [place], [address] MCHC (RBC) [Mass/Vol] 32.7 g/dL Normal 32-36 [facility] Comment on above: Order Comment: Order Date: 04/28/24 Order Info: 0184-1 - CBCD Performed By: #### L 506.1000, L506.0400, L501.9985, L501.9520, L500.4100, L500.4050, L100.0100 #### [facility] [address] [place], [address] MCV (RBC) [Entitic vol] 92.6 fL Normal 81-99 [facility] Comment on above: Order Comment: Order Date: 04/28/24 Order Info: 0184-1 - CBCD Performed By: #### L 506.1000, L506.0400, L501.9985, L501.9520, L500.4100, L500.4050, L100.0100 #### [facility] [address] [place], [address] Monocytes/100 WBC (Bld) 9.0 % Normal 0-10 [facility] Comment on above: Order Comment: Order Date: 04/28/24 Order Info: 0184-1 - CBCD Performed By: #### L 506.1000, L506.0400, L501.9985, L501.9520, L500.4100, L500.4050, L100.0100 #### [facility] [address] [place], [address] Neutrophils/100 WBC (Bld) 62.5 % Normal 47-70 [facility] Comment on above: Order Comment: Order Date: 04/28/24 Order Info: 0184-1 - CBCD Performed By: #### L 506.1000, L506.0400, L501.9985, L501.9520, L500.4100, L500.4050, L100.0100 #### [facility] [address] [place], [address] Nucleated RBC (Bld) [#/Vol] 0 10*3/uL Normal 0-5 [facility] Comment on above: Order Comment: Order Date: 04/28/24 Order Info: 0184-1 - CBCD Performed By: #### L 506.1000, L506.0400, L501.9985, L501.9520, L500.4100, L500.4050, L100.0100 #### [facility] [address] [place], [address] Platelet mean volume (Bld) [Entitic vol] 9.9 fL Normal 6.2-12.0 [facility] Comment on above: Order Comment: Order Date: 04/28/24 Order Info: 0184- - CBCD Performed By: #### L 506.1000, L506.0400, L501.9985, L501.9520, L500.4100, L500.4050, L100.0100 #### [facility] [address] [place], [address] Platelets (Bld) [#/Vol] 237 10*3/uL Normal 150-450 [facility] Comment on above: Order Comment: Order Date: 04/28/24 Order Info: 0184-1 - CBCD Performed By: #### L 506.1000, L506.0400, L501.9985, L501.9520, L500.4100, L500.4050, L100.0100 #### [facility] [address] [place], [address] RBC (Bld) [#/Vol] 4.76 10*6/uL Normal 4.2-5.4 [facility] Comment on above: Order Comment: Order Date: 04/28/24 Order Info: 0184-1 - CBCD Performed By: #### L 506.1000, L506.0400, L501.9985, L501.9520, L500.4100, L500.4050, L100.0100 #### [facility] [address] [place], [address] RDW SD 43.8 fl Normal 35.1-43.9 [facility] Comment on above: Order Comment: Order Date: 04/28/24 Order Info: 0184-1 - CBCD Performed By: #### L 506.1000, L506.0400, L501.9985, L501.9520, L500.4100, L500.4050, L100.0100 #### [facility] [address] [place], [address] WBC (Bld) [#/Vol] 8.4 10*3/uL Normal 4.4-11.0 [facility] Comment on above: Order Comment: Order Date: 04/28/24 Order Info: 0184-1 - CBCD Performed By: #### L 506.1000, L506.0400, L501.9985, L501.9520, L500.4100, L500.4050, L100.0100 #### [facility] [facility] [address] [place], [place], [id number] Carbon dioxide measurementOr dered By: Mark Phipps on 04-28-2024 CO2 [Moles/Vol] 22.0 mmol/L 21.0-32.0 [facility] Chloride measurementOrdered By: Mark Phipps on 04-28-2024 Chloride [Moles/Vol] 109 mmol/L High 98-107 [facility] Comprehensive Metabolic Prof ilon 04-28-2024 Albumin [Mass/Vol] 3.5 g/dL Normal 3.2-5.0 [facility] Comment on above: Order Comment: Order Date: 04/28/24 Order Info: 0786-1 - CMP Order Info: [id number] - LIPID Order Info: 3016-3 - TSH Order Info: 3024-7 - T4F Performed By: #### L 506.1000, L506.0400, L501.9985, L501.9520, L500.4100, L500.4050, L100.0100 #### [facility] [address] [place], [address] Albumin/Globulin [Mass ratio] 0.8 {ratio} Low 0.9-2.4 [facility] Comment on above: Order Comment: Order Date: 04/28/24 Order Info: 0786-1 - CMP Order Info: [id number] - LIPID Order Info: 3016-3 - TSH Order Info: 3024-7 - T4F Performed By: #### L 506.1000, L506.0400, L501.9985, L501.9520, L500.4100, L500.4050, L100.0100 #### [facility] [address] [place], [address] ALK P 94 U/L Normal 45-117 [facility] Comment on above: Order Comment: Order Date: 04/28/24 Order Info: 86-1 - CMP Order Info: [id number] - LIPID Order Info: 63 - TSH Order Info: 3024-7 - T4F Performed By: #### L 506.1000, L506.0400, L501.9985, L501.9520, L500.4100, L500.4050, L100.0100 #### [facility] [address] [place], [address] ALT [Catalytic activity/Vol] 27 U/L Normal 13-56 [facility] Comment on above: Order Comment: Order Date: 04/28/24 Order Info: 0786-1 - CMP Order Info: [id number] - LIPID Order Info: 3016-3 - TSH Order Info: 3024-7 - T4F Performed By: #### L 506.1000, L506.0400, L501.9985, L501.9520, L500.4100, L500.4050, L100.0100 #### [facility] [address] [place], [address] AST [Catalytic activity/Vol] 17 U/L Normal 15-37 [facility] Comment on above: Order Comment: Order Date: 04/28/24 Order Info: 0786- - CMP Order Info: [id number] - LIPID Order Info: 3015-3 - TSH Order Info: 3023-7 - T4F Performed By: #### L 506.1000, L506.0400, L501.9985, L501.9520, L500.4100, L500.4050, L100.0100 #### [facility] [address] [place], [address] Bilirubin [Mass/Vol] 0.40 mg/dL Normal 0.20-1.00 [facility] Comment on above: Order Comment: Order Date: 04/28/24 Order Info: 07- - CMP Order Info: [id number] - LIPID Order Info: 3 - TSH Order Info: 302-7 - T4F Result Comment: For patients on eltrombopag therapy, use of Dimension [place] TBIL is not recommended. Performed By: #### L 506.1000, L506.0400, L501.9985, L501.9520, L500.4100, L500.4050, L100.0100 #### [facility] [address] [place], [address] BUN/CRE 30.3 RATIO High 10-20 [facility] Comment on above: Order Comment: Order Date: 04/28/24 Order Info: 0786- - CMP Order Info: [id number] - LIPID Order Info: 3 - TSH Order Info: 3023-7 - T4F Performed By: #### L 506.1000, L506.0400, L501.9985, L501.9520, L500.4100, L500.4050, L100.0100 #### [facility] [address] [place], [address] CA,Total 9.7 mg/dL Normal 8.5-10.1 [facility] Comment on above: Order Comment: Order Date: 04/28/24 Order Info: 785-1 - CMP Order Info: - LIPID Order Info: [id number] - TSH Order Info: 7 - T4F Performed By: #### L 506.1000, L506.0400, L501.9985, L501.9520, L500.4100, L500.4050, L100.0100 #### [facility] [address] [place], [address] Chloride [Moles/Vol] 109 mmol/L High 98-107 [facility] Comment on above: Order Comment: Order Date: 04/28/24 Order Info: 785-1 - CMP Order Info: - LIPID Order Info: [id number] - TSH Order Info: 7 - T4F Performed By: #### L 506.1000, L506.0400, L501.9985, L501.9520, L500.4100, L500.4050, L100.0100 #### [facility] [address] [place], [address] CO2 [Moles/Vol] 22.0 mmol/L Normal 21.0-32.0 [facility] Comment on above: Order Comment: Order Date: 04/28/24 Order Info: 785- - CMP Order Info: - LIPID Order Info: [id number] - TSH Order Info: 7 - T4F Performed By: #### L 506.1000, L506.0400, L501.9985, L501.9520, L500.4100, L500.4050, L100.0100 #### [facility] [address] [place], [address] Creatinine [Mass/Vol] 0.72 mg/dL Normal 0.55-1.02 [facility] Comment on above: Order Comment: Order Date: 04/28/24 Order Info: 86-1 - CMP Order Info: [id number] - LIPID Order Info: 3015-05 - TSH Order Info: 3024-7 - T4F Result Comment: The validity of the calculated GFR GFRAA in patients over 70 years has not been determined. Clinical correlation is essential. Performed By: #### L 506.1000, L506.0400, L501.9985, L501.9520, L500.4100, L500.4050, L100.0100 #### [facility] [address] [place], [address] EST GFR - AA 103 mL/min Normal >60 [facility] Comment on above: Order Comment: Order Date: 04/28/24 Order Info: 07- - CMP Order Info: - LIPID Order Info: 3015-05 - TSH Order Info: 3023-09 - T4F Result Comment: Afri can Ghanaian GFR Calc Performed By: #### L 506.1000, L506.0400, L501.9985, L501.9520, L500.4100, L500.4050, L100.0100 #### [facility] [address] [place], [address] GAP 8 Normal 5-15 [facility] Comment on above: Order Comment: Order Date: 04/28/24 Order Info: 785- - CMP Order Info: - LIPID Order Info: [id number] - TSH Order Info: 3023-09 - T4F Performed By: #### L 506.1000, L506.0400, L501.9985, L501.9520, L500.4100, L500.4050, L100.0100 #### [facility] [address] [place], [place], [address] GFR/1.73 sq M.predicted among non-blacks MDRD (S/P/Bld) [Vol rate/Area] 85 mL/min/{1.73_m2} Normal >60 [facility] Comment on above: Order Comment: Order Date: 04/28/24 Order Info: 0786-1 - CMP Order Info: [id number] - LIPID Order Info: 3015-05 - TSH Order Info: 7 - T4F Result Comment: Non- GFR Calc Performed By: #### L 506.1000, L506.0400, L501.9985, L501.9520, L500.4100, L500.4050, L100.0100 #### [facility] [address] [place], [address] Globulin (S) [Mass/Vol] 4.3 g/dL High 2.2-4.2 [facility] Comment on above: Order Comment: Order Date: 04/28/24 Order Info: 785- - CMP Order Info: - LIPID Order Info: 3 - TSH Order Info: 7 - T4F Performed By: #### L 506.1000, L506.0400, L501.9985, L501.9520, L500.4100, L500.4050, L100.0100 #### [facility] [address] [place], [address] Glucose [Mass/Vol] 96 mg/dL Normal 74-106 [facility] Comment on above: Order Comment: Order Date: 04/28/24 Order Info: 785-03 - CMP Order Info: - LIPID Order Info: 3 - TSH Order Info: 302-7 - T4F Performed By: #### L 506.1000, L506.0400, L501.9985, L501.9520, L500.4100, L500.4050, L100.0100 #### [facility] [address] [place], [address] Potassium [Moles/Vol] 4.0 mmol/L Normal 3.5-5.1 [facility] Comment on above: Order Comment: Order Date: 04/28/24 Order Info: 86-1 - CMP Order Info: [id number] - LIPID Order Info: 3016-3 - TSH Order Info: 3024-7 - T4F Performed By: #### L 506.1000, L506.0400, L501.9985, L501.9520, L500.4100, L500.4050, L100.0100 #### [facility] [address] [place], [address] Sodium [Moles/Vol] 139 mmol/L Normal 136-145 [facility] Comment on above: Order Comment: Order Date: 04/28/24 Order Info: 0786-1 - CMP Order Info: [id number] - LIPID Order Info: 3016-3 - TSH Order Info: 3024-7 - T4F Performed By: #### L 506.1000, L506.0400, L501.9985, L501.9520, L500.4100, L500.4050, L100.0100 #### [facility] [address] [place], [address] T PROT 7.8 g/dL Normal 6.4-8.2 [facility] Comment on above: Order Comment: Order Date: 04/28/24 Order Info: 785- - CMP Order Info: - LIPID Order Info: 63 - TSH Order Info: 3024-7 - T4F Performed By: #### L 506.1000, L506.0400, L501.9985, L501.9520, L500.4100, L500.4050, L100.0100 #### [facility] [address] [place], [address] Urea nitrogen [Mass/Vol] 22 mg/dL High 7-18 [facility] Comment on above: Order Comment: Order Date: 04/28/24 Order Info: 0786-1 - CMP Order Info: [id number] - LIPID Order Info: 3016-3 - TSH Order Info: 3024-7 - T4F Performed By: #### L 506.1000, L506.0400, L501.9985, L501.9520, L500.4100, L500.4050, L100.0100 #### [facility] [address] [place], [address] Direct serum free thyroxine (FT4) measurementOrdered By: Mark Phipps on 04-28-2024 Free T4 [Mass/Vol] 0.97 ng/dL 0.76-1.46 [facility] Eosinophil percentageOrdered By: Mark Phipps on 04-28-2024 Eosinophils/100 WBC (Bld) 3.8 % 0-5 [facility] Erythrocyte distribution wid th ratioOrdered By: Mark Phipps on 04-28-2024 Erythrocyte distribution width (RBC) [Ratio] 12.9 % 11.6-14.6 [facility] Erythrocyte distribution wid th standard deviationOrdered By: Mark Phipps on 04-28-2024 Erythrocyte distribution width (RBC) [Ratio] 43.8 fl 35.1-43.9 [facility] Glomerular filtration rate ( GFR) estimationOrdered By: Mark Phipps on 04-28-2024 GFR/1.73 sq M.predicted among non-blacks MDRD (S/P/Bld) [Vol rate/Area] 85 mL/min/{1.73_m2} >60 [facility] Comment on above: Non- GFR Calc Glucose measurementOrdered B y: Mark Phipps on 04-28-2024 Glucose [Mass/Vol] 96 mg/dL 74-106 [facility] Hematocrit Auto (Bld) [Volum e fraction]Ordered By: Mark Phipps on 04-28-2024 Hematocrit (Bld) [Volume fraction] 44.1 % 37-47 [facility] Hemoglobin A1con 04-28-2024 HbA1c (Bld) [Mass fraction] 5.2 % Normal 3.8-5.6 [facility] Comment on above: Order Comment: Order Date: 04/28/24 Order Info: [id number] - A1C Result Comment: Norm al < 5.7 % Prediabetic 5.7 - 6.4 % Diabetic >or= 6.5 % Please note range changes. Performed By: #### L 506.1000, L506.0400, L501.9985, L501.9520, L500.4100, L500.4050, L100.0100 #### [facility] [place], [address] Hemoglobin A1c percentageOrd ered By: Mark Phipps on 04-28-2024 HbA1c (Bld) [Mass fraction] 5.2 % 3.8-5.6 [facility] Comment on above: Normal < 5.7 % Predi abetic 5.7 - 6.4 % Diabetic >or= 6.5 % Please note range changes. Hemoglobin measurementOrdere d By: Mark Phipps on 04-28-2024 Hemoglobin (Bld) [Mass/Vol] 14.4 g/dL 12.0-15.0 [facility] High density lipoprotein (HD L) measurementOrdered By: Mark Phipps on 04-28-2024 Cholesterol in HDL [Mass/Vol] 82 mg/dL >40 [facility] Comment on above: The drugs N-Acetylcy steine and Metamizole may falsely depress this assay. Reference Range HDL <40 mg/dL Low HDL Cholesterol HDL >or= 60 mg/dL High HDL Cholesterol Immature granulocytes/100 WB C Auto (Bld)Ordered By: Mark Phipps on 04-28-2024 Immature granulocytes/100 WBC (Bld) 0.500 % 0.0-0.9 [facility] Comment on above: IG% - Immature Granu locytes (promyelocytes, myelocytes and metamyelocytes) > 1% indicates that a LEFT SHIFT is Present. Laboratory - Chemistry and C hemistry - challengeOrdered By: Mark Phipps on 04-28-2024 AST [Catalytic activity/Vol] 17 U/L 15-37 [facility] Lipid Profileon 04-28-2024 Cholesterol [Mass/Vol] 214 mg/dL High 200 [facility] Comment on above: Order Comment: Order Date: 04/28/24 Order Info: 0786-1 - CMP Order Info: [id number] - LIPID Order Info: 3016-3 - TSH Order Info: 3024-7 - T4F Result Comment: <200 mg/dL Desirable 200-240 mg/dL Borderline >240 mg/dL High Risk Performed By: #### L 506.1000, L506.0400, L501.9985, L501.9520, L500.4100, L500.4050, L100.0100 #### [facility] [address] [place], [address] Cholesterol in HDL [Mass/Vol] 82 mg/dL Normal [facility] Comment on above: Order Comment: Order Date: 04/28/24 Order Info: 07- - CMP Order Info: [id number] - LIPID Order Info: 3 - TSH Order Info: 7 - T4F Result Comment: The drugs N-Acetylcysteine and Metamizole may falsely depress this assay. Reference Range HDL <40 mg/dL Low HDL Cholesterol HDL >or= 60 mg/dL High HDL Cholesterol Performed By: #### L 506.1000, L506.0400, L501.9985, L501.9520, L500.4100, L500.4050, L100.0100 #### [facility] [address] [place], [address] Cholesterol in LDL [Mass/Vol] 104 mg/dL Normal 0-130 [facility] Comment on above: Order Comment: Order Date: 04/28/24 Order Info: 785-03 - CMP Order Info: - LIPID Order Info: [id number] - TSH Order Info: 7 - T4F Performed By: #### L 506.1000, L506.0400, L501.9985, L501.9520, L500.4100, L500.4050, L100.0100 #### [facility] [address] [place], [address] Cholesterol in VLDL [Mass/Vol] 28 mg/dL Normal 5-40 [facility] Comment on above: Order Comment: Order Date: 04/28/24 Order Info: 785-03 - CMP Order Info: - LIPID Order Info: [id number] - TSH Order Info: 7 - T4F Performed By: #### L 506.1000, L506.0400, L501.9985, L501.9520, L500.4100, L500.4050, L100.0100 #### [facility] [address] [place], [address] Triglyceride [Mass/Vol] 141 mg/dL Normal [facility] Comment on above: Order Comment: Order Date: 04/28/24 Order Info: 0786-1 - CMP Order Info: [id number] - LIPID Order Info: 3016-3 - TSH Order Info: 3024-7 - T4F Result Comment: The drugs N-Acetylcysteine and Metamizole may falsely depress this assay. Serum Triglycerides Reference Interval Normal <150 mg/dL Borderline high 150 - 199 mg/dL High 200 - 499 mg/dL Very High > or = 500 mg/dL Performed By: #### L 506.1000, L506.0400, L501.9985, L501.9520, L500.4100, L500.4050, L100.0100 #### [facility] [address] [place], [address] Low density lipoprotein (LDL ) cholesterol measurementOrdered By: Mark Phipps on 04-28-2024 Cholesterol in LDL [Mass/Vol] 104 mg/dL 0-130 [facility] MCV (mean corpuscular volume ) determinationOrdered By: Mark Phipps on 04-28-2024 MCV (RBC) [Entitic vol] 92.6 fL 81-99 [facility] Mean corpuscular hemoglobin (MCH) determinationOrdered By: Mark Phipps on 04-28-2024 MCH (RBC) [Entitic mass] 30.3 pg 27.0-32.0 [facility] Mean corpuscular hemoglobin concentration (MCHC) determinationOrdered By: Mark Phipps on 04-28-2024 MCHC (RBC) [Mass/Vol] 32.7 g/dL 32-36 [facility] Mean platelet volume determi nationOrdered By: Mark Phipps on 04-28-2024 Platelet mean volume (Bld) [Entitic vol] 9.9 fL 6.2-12.0 [facility] Microalb:Creat Ratio,Random URon 04-28-2024 Creatinine [Mass/Vol] 69.40 mg/dL Normal NO RAN GE EST. [facility] Comment on above: Performed By: #### L 502.0250 #### [facility] [address] [place], [place], [id number] MALB:CRE 14.8 mg/g CRE Normal <30 mg/g CRE [facility] Comment on above: Performed By: #### L 502.0250 #### [facility] [address] [place], [place], [address] MICROALBUMIN,UR 10.3 mg/L Normal NO RANGE EST. [facility] Comment on above: Performed By: #### L 502.0250 #### [facility] [address] [place], [place], [address] Monocyte percentageOrdered B y: Mark Phipps on 04-28-2024 Monocytes/100 WBC (Bld) 9.0 % 0-10 [facility] Neutrophil percentageOrdered By: Mark Phipps on 04-28-2024 Neutrophils/100 WBC (Bld) 62.5 % 47-70 [facility] Nucleated red blood cell per centageOrdered By: Mark Phipps on 04-28-2024 Nucleated RBC/100 WBC (Bld) [Ratio] 0 % 0-5 [facility] Platelet countOrdered By: Jody Phipps on 04-28-2024 Platelets (Bld) [#/Vol] 237 10*3/uL 150-450 [facility] Potassium measurementOrdered By: Mark Phipps on 04-28-2024 Potassium [Moles/Vol] 4.0 mmol/L 3.5-5.1 [facility] RBC Auto (Bld) [#/Vol]Ordere d By: Mark Phipps on 04-28-2024 RBC (Bld) [#/Vol] 4.76 10*6/uL 4.2-5.4 [facility] Serum anion gap measurementO rdered By: Mark Phipps on 04-28-2024 Anion gap [Moles/Vol] 8 mmol/L 5-15 [facility] Serum globulin measurementOr dered By: Mark Phipps on 04-28-2024 Globulin (S) [Mass/Vol] 4.3 g/dL High 2.2-4.2 [facility] Serum or plasma alanine reid otransferase (ALT) measurementOrdered By: Mark Phipps on 04-28-2024 ALT [Catalytic activity/Vol] 27 U/L 13-56 [facility] Serum or plasma albumin cosmo urement (mass/volume)Ordered By: Mark Phipps on 04-28-2024 Albumin [Mass/Vol] 3.5 g/dL 3.2-5.0 [facility] Serum or plasma alkaline quinn sphatase measurementOrdered By: Mark Phipps on 04-28-2024 ALP [Catalytic activity/Vol] 94 U/L 45-117 [facility] Serum or plasma calcium cosmo urement (mass/volume)Ordered By: Mark Phipps on 04-28-2024 Calcium [Mass/Vol] 9.7 mg/dL 8.5-10.1 [facility] Serum or plasma cholesterol measurement (mass/volume)Ordered By: Mark Phipps on 04-28-2024 Cholesterol [Mass/Vol] 214 mg/dL High <200 [facility] Comment on above: <200 mg/dL Desirable 200-240 mg/dL Borderline >240 mg/dL High Risk Serum or plasma creatinine m easurement (mass/volume)Ordered By: Mark Phipps on 04-28-2024 Creatinine [Mass/Vol] 0.72 mg/dL 0.55-1.02 [facility] Comment on above: The validity of the calculated GFR & GFRAA in patients over 70 years has not been determined. Clinical correlation is essential. Serum or plasma thyroid stim ulating hormone (TSH) measurement (units/volume)Ordered By: Mark Phipps on 04-28-2024 TSH Qn 3.550 uIU/mL 0.358-3.740 [facility] Serum or plasma urea nitroge n measurement (mass/volume)Ordered By: Mark Phipps on 04-28-2024 Urea nitrogen [Mass/Vol] 22 mg/dL High 7-18 [facility] Sodium levelOrdered By: Mark Phipps on 04-28-2024 Sodium [Moles/Vol] 139 mmol/L 136-145 [facility] T4 Free Directon 04-28-2024 T4 FREE DIRECT 0.97 ng/dL Normal 0.76-1.46 [facility] Comment on above: Order Comment: Order Date: 04/28/24 Order Info: 0786-1 - CMP Order Info: [id number] - LIPID Order Info: 3015-05 - TSH Order Info: 7 - T4F Performed By: #### L 506.1000, L506.0400, L501.9985, L501.9520, L500.4100, L500.4050, L100.0100 #### [facility] [address] [place], [place], [id number] Thyroid Stim Hormone (TSH)on 04-28-2024 TSH 3.550 uIU/mL Normal 0.358-3.740 [facility] Comment on above: Order Comment: Order Date: 04/28/24 Order Info: 0786-1 - CMP Order Info: [id number] - LIPID Order Info: 3015-05 - TSH Order Info: 3023-09 - T4F Performed By: #### L 506.1000, L506.0400, L501.9985, L501.9520, L500.4100, L500.4050, L100.0100 #### [facility] [address] [place], [address] Total proteinOrdered By: Steven Phipps on 04-28-2024 Protein [Mass/Vol] 7.8 g/dL 6.4-8.2 [facility] Triglycerides measurementOrd ered By: Mark Phipps on 04-28-2024 Triglyceride [Mass/Vol] 141 mg/dL <199 [facility] Comment on above: The drugs N-Acetylcy steine and Metamizole may falsely depress this assay.Serum Triglycerides Reference Interval Normal <150 mg/dL Borderline high 150 - 199 mg/dL High 200 - 499 mg/dL Very High > or = 500 mg/dL Urine creatinine measurement (mass/volume)Ordered By: Mark Phipps on 04-28-2024 Creatinine (U) [Mass/Vol] 69.40 mg/dL NO RANGE EST. [facility] Very low density lipoprotein (VLDL) cholesterol measurementOrdered By: Mark Phipps on 04-28-2024 Very low density lipoprotein (VLDL) cholesterol measurement 28 mg/dL 5-40 [facility] Vitamin D,25 Hydroxyon 04-28 Vitamin D 25-OH 25.4 ng/mL Normal [facility] Comment on above: Order Comment: Order Date: 04/28/24 Order Info: [id number] - VITD25 Result Comment: Daya min D 25(OH) Status Range Deficiency <20 ng/mL (50nmol/L) Insufficiency 20 - 30 ng/mL (50 - 75 nmol/L) Sufficiency 30 - 100 ng/mL (75 - 250 nmol/L) Toxicity >100 ng/mL (>250 nmol/L) Performed By: #### L 506.1000, L506.0400, L501.9985, L501.9520, L500.4100, L500.4050, L100.0100 #### [facility] [address] [place], [address] White blood cell (WBC) count Ordered By: Mark Phipps on 04-28-2024 WBC (Bld) [#/Vol] 8.4 10*3/uL 4.4-11.0 [facility] SCRN MAMM (CAD)W/ZULEYMA BILATo n 01-21-2024 SCRN MAMM (CAD)W/ZULEYMA BILAT [facility] [address] [place] [address] SCRN MAMM (CAD)W/ZULEYMA BILAT MR#: [id number] Acct: [id number] Name: ROCKY MORRISON Rep #: [id number] : 1955 F 68 From: Chintan kovacs MD PCP: Dr. Mark Phipps MD Status: REG [facility] Study: SCRN MAMM (CAD)W/ZULEYMA BILAT Date of Exam: 12/24 12/16 Exam# [id number] Ordering Dr: Mark Phipps MD -[id number] MAMMOGRAPHY - BILATERAL SCREENING REASON FOR EXAM: Female, 68 years old. Routine annual screening examination. PERTINENT HISTORY: Sister with breast cancer. Mother with breast cancer. TECHNIQUE: Digital bilateral breast zuleyma (3D mammographic acquisition) in the CC and MLO projections. 2-D mediolateral oblique (MLO) and craniocaudad (CC) views of both breasts were obtained. CAD: Full Field Digital Mammography with Computer Added Detection was performed. COMPARISON: Comparison is made with prior study January 18, 2023 and January 17, 2022. FINDINGS: Breast Composition: There are scattered areas of fibroglandular density. There are no dominant masses or suspicious calcifications. Stable fat-containing left axial lymph node. No other significant abnormalities are identified. There has been no significant change since the prior study. BI/SCRN MAMM (CAD)W/ZULEYMA BILAT IMPRESSION: Stable bilateral screening mammogram. Yearly follow-up mammogram recommended. (A) ASSESSMENT CATEGORY: BIRADS Category 2: Benign. A letter regarding these results will be sent to the patient by the facility within 30 days. Approximately 10% of breast cancers are not detected by mammography. A normal mammogram should not delay biopsy of a clinically suspicious abnormality. [id number] Electronically Signed: Chintan Lopez MD at 11:30 EDT , CC: Dr. Mark Phipps MD Flower Grower: Signed Normal [facility] CBC W/Diff, Automatedon 09-24 Absolute Lymph 2.00 X10 3/uL Normal 0.83-4.51 [facility] Comment on above: Order Comment: Order Date: 10/22/23 Order Info: [id number] - CBCD Performed By: #### L 100.0100, L501.9985, L501.5200, L501.9520, L500.4050, L506.1000, L500.4100 #### [facility] [address] [place], [address] Absolute Neut 4.7 X10 3/uL Normal 2.0-7.7 [facility] Comment on above: Order Comment: Order Date: 10/22/23 Order Info: [id number]- - CBCD Performed By: #### L 100.0100, L501.9985, L501.5200, L501.9520, L500.4050, L506.1000, L500.4100 #### [facility] [address] [place], [address] Basophils/100 WBC (Bld) 0.5 % Normal 0-1 [facility] Comment on above: Order Comment: Order Date: 10/22/23 Order Info: [id number] - CBCD Performed By: #### L 100.0100, L501.9985, L501.5200, L501.9520, L500.4050, L506.1000, L500.4100 #### [facility] Laboratory [address] [place], [address] Eosinophils/100 WBC (Bld) 5.7 % High 0-5 [facility] Comment on above: Order Comment: Order Date: 10/22/23 Order Info: 0184 - CBCD Performed By: #### L 100.0100, L501.9985, L501.5200, L501.9520, L500.4050, L506.1000, L500.4100 #### [facility] [address] [place], [address] Erythrocyte distribution width (RBC) [Ratio] 13.3 % Normal 11.6-14.6 [facility] Comment on above: Order Comment: Order Date: 10/22/23 Order Info: 0184- - CBCD Performed By: #### L 100.0100, L501.9985, L501.5200, L501.9520, L500.4050, L506.1000, L500.4100 #### [facility] [address] [place], [address] Hematocrit (Bld) [Volume fraction] 43.0 % Normal 37-47 [facility] Comment on above: Order Comment: Order Date: 10/22/23 Order Info: 0184-1 - CBCD Performed By: #### L 100.0100, L501.9985, L501.5200, L501.9520, L500.4050, L506.1000, L500.4100 #### [facility] [address] [place], [address] ( Hemoglobin (Bld) [Mass/Vol] 13.8 g/dL Normal 12.0-15.0 [facility] Comment on above: Order Comment: Order Date: 10/22/23 Order Info: 0184-1 - CBCD Performed By: #### L 100.0100, L501.9985, L501.5200, L501.9520, L500.4050, L506.1000, L500.4100 #### [facility] [address] [place], [address] IG% 0.300 Normal 0.0-0.9 [facility] Comment on above: Order Comment: Order Date: 10/22/23 Order Info: 0184-1 - CBCD Result Comment: IG% - Immature Granulocytes (promyelocytes, myelocytes and metamyelocytes) > 1% indicates that a LEFT SHIFT is Present. Performed By: #### L 100.0100, L501.9985, L501.5200, L501.9520, L500.4050, L506.1000, L500.4100 #### [facility] [address] [place], [address] Lymphocytes/100 WBC (Bld) 25.4 % Normal 19-41 [facility] Comment on above: Order Comment: Order Date: 10/22/23 Order Info: 01806-23 - CBCD Performed By: #### L 100.0100, L501.9985, L501.5200, L501.9520, L500.4050, L506.1000, L500.4100 #### [facility] [address] [place], [address] MCH (RBC) [Entitic mass] 29.5 pg Normal 27.0-32.0 [facility] Comment on above: Order Comment: Order Date: 10/22/23 Order Info: 01806-23 - CBCD Performed By: #### L 100.0100, L501.9985, L501.5200, L501.9520, L500.4050, L506.1000, L500.4100 #### [facility] [address] [place], [address] MCHC (RBC) [Mass/Vol] 32.1 g/dL Normal 32-36 [facility] Comment on above: Order Comment: Order Date: 10/22/23 Order Info: 01806-23 - CBCD Performed By: #### L 100.0100, L501.9985, L501.5200, L501.9520, L500.4050, L506.1000, L500.4100 #### [facility] [address] [place], [address] MCV (RBC) [Entitic vol] 91.9 fL Normal 81-99 [facility] Comment on above: Order Comment: Order Date: 10/22/23 Order Info: 01806-23 - CBCD Performed By: #### L 100.0100, L501.9985, L501.5200, L501.9520, L500.4050, L506.1000, L500.4100 #### [facility] [address] [place], [address] Monocytes/100 WBC (Bld) 8.5 % Normal 0-10 [facility] Comment on above: Order Comment: Order Date: 10/22/23 Order Info: 018- - CBCD Performed By: #### L 100.0100, L501.9985, L501.5200, L501.9520, L500.4050, L506.1000, L500.4100 #### [facility] [address] [place], [address] Neutrophils/100 WBC (Bld) 59.6 % Normal 47-70 [facility] Comment on above: Order Comment: Order Date: 10/22/23 Order Info: 01806-23 - CBCD Performed By: #### L 100.0100, L501.9985, L501.5200, L501.9520, L500.4050, L506.1000, L500.4100 #### [facility] [address] [place], [address] Nucleated RBC (Bld) [#/Vol] 0 10*3/uL Normal 0-5 [facility] Comment on above: Order Comment: Order Date: 10/22/23 Order Info: 01806-23 - CBCD Performed By: #### L 100.0100, L501.9985, L501.5200, L501.9520, L500.4050, L506.1000, L500.4100 #### [facility] [address] [place], [address] Platelet mean volume (Bld) [Entitic vol] 10.2 fL Normal 6.2-12.0 [facility] Comment on above: Order Comment: Order Date: 10/22/23 Order Info: 01806-23 - CBCD Performed By: #### L 100.0100, L501.9985, L501.5200, L501.9520, L500.4050, L506.1000, L500.4100 #### [facility] [address] [place], [address] Platelets (Bld) [#/Vol] 239 10*3/uL Normal 150-450 [facility] Comment on above: Order Comment: Order Date: 10/22/23 Order Info: 0184- - CBCD Performed By: #### L 100.0100, L501.9985, L501.5200, L501.9520, L500.4050, L506.1000, L500.4100 #### [facility] [address] [place], [place], [address] (824) RBC (Bld) [#/Vol] 4.68 10*6/uL Normal 4.2-5.4 [facility] Comment on above: Order Comment: Order Date: 10/22/23 Order Info: 01806-23 - CBCD Performed By: #### L 100.0100, L501.9985, L501.5200, L501.9520, L500.4050, L506.1000, L500.4100 #### [facility] [address] [place], [place], [address] RDW SD 45.4 fl High 35.1-43.9 [facility] Comment on above: Order Comment: Order Date: 10/22/23 Order Info: 01806-23 - CBCD Performed By: #### L 100.0100, L501.9985, L501.5200, L501.9520, L500.4050, L506.1000, L500.4100 #### [facility] [address] [place], [address] WBC (Bld) [#/Vol] 7.9 10*3/uL Normal 4.4-11.0 [facility] Comment on above: Order Comment: Order Date: 10/22/23 Order Info: 0184- - CBCD Performed By: #### L 100.0100, L501.9985, L501.5200, L501.9520, L500.4050, L506.1000, L500.4100 #### [facility] [address] [place], [place], [address] Comprehensive Metabolic Prof ilon 10-22-2023 Albumin [Mass/Vol] 3.7 g/dL Normal 3.2-5.0 [facility] Comment on above: Order Comment: Order Date: 04/28/24 Order Info: [id number] - VITD25 Performed By: #### L 506.1000, L506.0400, L501.9985, L501.9520, L500.4100, L500.4050, L100.0100 #### [facility] [address] [place], [address] Albumin/Globulin [Mass ratio] 1.0 {ratio} Normal 0.9-2.4 [facility] Comment on above: Order Comment: Order Date: 04/28/24 Order Info: [id number] - VITD25 Performed By: #### L 506.1000, L506.0400, L501.9985, L501.9520, L500.4100, L500.4050, L100.0100 #### [facility] [address] [place], [address] ALK P 105 U/L Normal 45-117 [facility] Comment on above: Order Comment: Order Date: 04/28/24 Order Info: [id number] - VITD25 Performed By: #### L 506.1000, L506.0400, L501.9985, L501.9520, L500.4100, L500.4050, L100.0100 #### [facility] [address] [place], [address] ALT [Catalytic activity/Vol] 21 U/L Normal 13-56 [facility] Comment on above: Order Comment: Order Date: 04/28/24 Order Info: [id number] - VITD25 Performed By: #### L 506.1000, L506.0400, L501.9985, L501.9520, L500.4100, L500.4050, L100.0100 #### [facility] [address] [place], [address] AST [Catalytic activity/Vol] 19 U/L Normal 15-37 [facility] Comment on above: Order Comment: Order Date: 04/28/24 Order Info: [id number] - VITD25 Performed By: #### L 506.1000, L506.0400, L501.9985, L501.9520, L500.4100, L500.4050, L100.0100 #### [facility] [address] [place], [address] Bilirubin [Mass/Vol] 0.50 mg/dL Normal 0.20-1.00 [facility] Comment on above: Order Comment: Order Date: 04/28/24 Order Info: [id number] - VITD25 Result Comment: For patients on eltrombopag therapy, use of Dimension [place] TBIL is not recommended. Performed By: #### L 506.1000, L506.0400, L501.9985, L501.9520, L500.4100, L500.4050, L100.0100 #### [facility] [address] [place], [address] BUN/CRE 23.3 RATIO High 10-20 [facility] Comment on above: Order Comment: Order Date: 04/28/24 Order Info: [id number] - VITD25 Performed By: #### L 506.1000, L506.0400, L501.9985, L501.9520, L500.4100, L500.4050, L100.0100 #### [facility] [address] [place], [address] CA,Total 9.6 mg/dL Normal 8.5-10.1 [facility] Comment on above: Order Comment: Order Date: 04/28/24 Order Info: [id number] - VITD25 Performed By: #### L 506.1000, L506.0400, L501.9985, L501.9520, L500.4100, L500.4050, L100.0100 #### [facility] [address] [place], [address] Chloride [Moles/Vol] 108 mmol/L High 98-107 [facility] Comment on above: Order Comment: Order Date: 04/28/24 Order Info: [id number] - VITD25 Performed By: #### L 506.1000, L506.0400, L501.9985, L501.9520, L500.4100, L500.4050, L100.0100 #### [facility] [address] [place], [address] CO2 [Moles/Vol] 23.0 mmol/L Normal 21.0-32.0 [facility] Comment on above: Order Comment: Order Date: 04/28/24 Order Info: [id number] - VITD25 Performed By: #### L 506.1000, L506.0400, L501.9985, L501.9520, L500.4100, L500.4050, L100.0100 #### [facility] [address] [place], [address] Creatinine [Mass/Vol] 0.73 mg/dL Normal 0.55-1.02 [facility] Comment on above: Order Comment: Order Date: 04/28/24 Order Info: [id number] - VITD25 Result Comment: The validity of the calculated GFR GFRAA in patients over 70 years has not been determined. Clinical correlation is essential. Performed By: #### L 506.1000, L506.0400, L501.9985, L501.9520, L500.4100, L500.4050, L100.0100 #### [facility] [address] [place], [address] EST GFR - AA 103 mL/min Normal >60 [facility] Comment on above: Order Comment: Order Date: 04/28/24 Order Info: [id number] - VITD25 Result Comment: Afri can Ghanaian GFR Calc Performed By: #### L 506.1000, L506.0400, L501.9985, L501.9520, L500.4100, L500.4050, L100.0100 #### [facility] [address] [place], [address] GAP 8 Normal 5-15 [facility] Comment on above: Order Comment: Order Date: 04/28/24 Order Info: [id number] - VITD25 Performed By: #### L 506.1000, L506.0400, L501.9985, L501.9520, L500.4100, L500.4050, L100.0100 #### [facility] [address] [place], [address] GFR/1.73 sq M.predicted among non-blacks MDRD (S/P/Bld) [Vol rate/Area] 85 mL/min/{1.73_m2} Normal >60 [facility] Comment on above: Order Comment: Order Date: 04/28/24 Order Info: [id number] - VITD25 Result Comment: Non- GFR Calc Performed By: #### L 506.1000, L506.0400, L501.9985, L501.9520, L500.4100, L500.4050, L100.0100 #### [facility] [address] [place], [address] Globulin (S) [Mass/Vol] 3.8 g/dL Normal 2.2-4.2 [facility] Comment on above: Order Comment: Order Date: 04/28/24 Order Info: [id number] - VITD25 Performed By: #### L 506.1000, L506.0400, L501.9985, L501.9520, L500.4100, L500.4050, L100.0100 #### [facility] [address] [place], [address] Glucose [Mass/Vol] 100 mg/dL Normal 74-106 [facility] Comment on above: Order Comment: Order Date: 04/28/24 Order Info: [id number] - VITD25 Result Comment: Fast ing Glucose result from 100 to 125 mg/dL suggests IMPAIRED HOMEOSTASIS per A.D.A. criteria. Performed By: #### L 506.1000, L506.0400, L501.9985, L501.9520, L500.4100, L500.4050, L100.0100 #### [facility] [address] [place], [address] Potassium [Moles/Vol] 3.8 mmol/L Normal 3.5-5.1 [facility] Comment on above: Order Comment: Order Date: 04/28/24 Order Info: [id number] - VITD25 Performed By: #### L 506.1000, L506.0400, L501.9985, L501.9520, L500.4100, L500.4050, L100.0100 #### [facility] [address] [place], [address] Sodium [Moles/Vol] 139 mmol/L Normal 136-145 [facility] Comment on above: Order Comment: Order Date: 04/28/24 Order Info: [id number] - VITD25 Performed By: #### L 506.1000, L506.0400, L501.9985, L501.9520, L500.4100, L500.4050, L100.0100 #### [facility] [address] [place], [address] T PROT 7.5 g/dL Normal 6.4-8.2 [facility] Comment on above: Order Comment: Order Date: 04/28/24 Order Info: [id number] - VITD25 Performed By: #### L 506.1000, L506.0400, L501.9985, L501.9520, L500.4100, L500.4050, L100.0100 #### [facility] [address] [place], [address] Urea nitrogen [Mass/Vol] 17 mg/dL Normal 7-18 [facility] Comment on above: Order Comment: Order Date: 04/28/24 Order Info: [id number] - VITD25 Performed By: #### L 506.1000, L506.0400, L501.9985, L501.9520, L500.4100, L500.4050, L100.0100 #### [facility] [address] [place], [address] Hemoglobin A1con 10-22-2023 HbA1c (Bld) [Mass fraction] 5.5 % Normal 3.8-5.6 [facility] Comment on above: Order Comment: Order Date: 04/28/24 Order Info: [id number] - VITD25 Result Comment: Norm al < 5.7 % Prediabetic 5.7 - 6.4 % Diabetic >or= 6.5 % Please note range changes. Performed By: #### L 506.1000, L506.0400, L501.9985, L501.9520, L500.4100, L500.4050, L100.0100 #### [facility] [address] [place], [address] Lipid Profileon 10-22-2023 Cholesterol [Mass/Vol] 199 mg/dL Normal 200 [facility] Comment on above: Order Comment: Order Date: 04/28/24 Order Info: [id number] - VITD25 Result Comment: <200 mg/dL Desirable 200-240 mg/dL Borderline >240 mg/dL High Risk Performed By: #### L 506.1000, L506.0400, L501.9985, L501.9520, L500.4100, L500.4050, L100.0100 #### [facility] [address] [place], [address] Cholesterol in HDL [Mass/Vol] 66 mg/dL Normal [facility] Comment on above: Order Comment: Order Date: 04/28/24 Order Info: [id number] - VITD25 Result Comment: The drugs N-Acetylcysteine and Metamizole may falsely depress this assay. Reference Range HDL <40 mg/dL Low HDL Cholesterol HDL >or= 60 mg/dL High HDL Cholesterol Performed By: #### L 506.1000, L506.0400, L501.9985, L501.9520, L500.4100, L500.4050, L100.0100 #### [facility] [address] [place], [address] Cholesterol in LDL [Mass/Vol] 110 mg/dL Normal 0-130 [facility] Comment on above: Order Comment: Order Date: 04/28/24 Order Info: [id number] - VITD25 Performed By: #### L 506.1000, L506.0400, L501.9985, L501.9520, L500.4100, L500.4050, L100.0100 #### [facility] [address] [place], [place], [id number] (203) Cholesterol in VLDL [Mass/Vol] 23 mg/dL Normal 5-40 [facility] Comment on above: Order Comment: Order Date: 04/28/24 Order Info: [id number] - VITD25 Performed By: #### L 506.1000, L506.0400, L501.9985, L501.9520, L500.4100, L500.4050, L100.0100 #### [facility] [address] [place], [address] Triglyceride [Mass/Vol] 114 mg/dL Normal [facility] Comment on above: Order Comment: Order Date: 04/28/24 Order Info: [id number] - VITD25 Result Comment: The drugs N-Acetylcysteine and Metamizole may falsely depress this assay. Serum Triglycerides Reference Interval Normal <150 mg/dL Borderline high 150 - 199 mg/dL High 200 - 499 mg/dL Very High > or = 500 mg/dL Performed By: #### L 506.1000, L506.0400, L501.9985, L501.9520, L500.4100, L500.4050, L100.0100 #### [facility] [address] [place], [address] Magnesiumon 10-22-2023 Magnesium [Mass/Vol] 2.3 mg/dL Normal 1.6-2.6 [facility] Comment on above: Order Comment: Order Date: 04/28/24 Order Info: [id number] - VITD25 Performed By: #### L 506.1000, L506.0400, L501.9985, L501.9520, L500.4100, L500.4050, L100.0100 #### [facility] [address] [place], [address] Thyroid Stim Hormone (TSH)on 10-22-2023 TSH 3.29 uIU/mL Normal 0.358-3.74 [facility] Comment on above: Order Comment: Order Date: 04/28/24 Order Info: [id number] - VITD25 Performed By: #### L 506.1000, L506.0400, L501.9985, L501.9520, L500.4100, L500.4050, L100.0100 #### [facility] [address] [place], [address] Urinalysis, Completeon 10-21 BACTERIA RARE Normal None Seen [facility] Comment on above: Order Comment: Order Date: 04/28/24 Order Info: [id number] - VITD25 Performed By: #### L 506.1000, L506.0400, L501.9985, L501.9520, L500.4100, L500.4050, L100.0100 #### [facility] [address] [place], [address] Mucus Ql (Urine sed) RARE Normal [facility] Comment on above: Order Comment: Order Date: 04/28/24 Order Info: [id number] - VITD25 Performed By: #### L 506.1000, L506.0400, L501.9985, L501.9520, L500.4100, L500.4050, L100.0100 #### [facility] [address] [place], [address] WBC 0-5 SEEN Normal 0-5 [facility] Comment on above: Order Comment: Order Date: 04/28/24 Order Info: [id number] - VITD25 Performed By: #### L 506.1000, L506.0400, L501.9985, L501.9520, L500.4100, L500.4050, L100.0100 #### [facility] [address] [place], [address] EPI,SQUAMOUS 0 SEEN Normal 5-10 [facility] Comment on above: Order Comment: Order Date: 04/28/24 Order Info: [id number] - VITD25 Performed By: #### L 506.1000, L506.0400, L501.9985, L501.9520, L500.4100, L500.4050, L100.0100 #### [facility] [address] [place], [address] RBC 0 SEEN Normal 0-5 [facility] Comment on above: Order Comment: Order Date: 04/28/24 Order Info: [id number] - VITD25 Performed By: #### L 506.1000, L506.0400, L501.9985, L501.9520, L500.4100, L500.4050, L100.0100 #### [facility] [address] [place], [address] Vitamin D,25 Hydroxyon 10-21 Vitamin D 25-OH 35.2 ng/mL Normal [facility] Comment on above: Order Comment: Order Date: 10/22/23 Order Info: [id number] - VITD25 Result Comment: Daya min D 25(OH) Status Range Deficiency <20 ng/mL (50nmol/L) Insufficiency 20 - 30 ng/mL (50 - 75 nmol/L) Sufficiency 30 - 100 ng/mL (75 - 250 nmol/L) Toxicity >100 ng/mL (>250 nmol/L) Performed By: #### L 100.0100, L501.9985, L501.5200, L501.9520, L500.4050, L506.1000, L500.4100 #### [facility] [address] [place], [address] Absolute lymphocyte countOrd ered By: Mark Phipps on 04-09-2023 Lymphocytes Auto (Unsp spec) [#/Vol] 1.74 10*3/uL 0.83-4.51 [facility] Automated lymphocyte count a s percentage of total leukocytesOrdered By: Mark Phipps on 04-09-2023 Lymphocytes/100 WBC Auto (Unsp spec) 20.7 % 19-41 [facility] Basophil percentageOrdered B y: Mark Phipps on 04-09-2023 Basophil percentage 0-5 SEEN /hpf 0-5 [facility] Basophils/100 WBC (Bld) 0.5 % 0-1 [facility] Bilirubin [Mass/Vol] 0.40 mg/dL 0.20-1.00 [facility] Comment on above: For patients on eltr ombopag therapy, use of Dimension [place] TBIL is not recommended. Chloride [Moles/Vol] 109 mmol/L 98-107 [facility] Cholesterol [Mass/Vol] 213 mg/dL <200 [facility] Comment on above: <200 mg/dL Desirable 200-240 mg/dL Borderline >240 mg/dL High Risk Eosinophils/100 WBC (Bld) 3.4 % 0-5 [facility] Glucose [Mass/Vol] 107 mg/dL 74-106 [facility] Comment on above: Fasting Glucose resu lt from 100 to 125 mg/dL suggests IMPAIRED HOMEOSTASIS per A.D.A. criteria. Hemoglobin (Bld) [Mass/Vol] 14.7 g/dL 12.0-15.0 [facility] Monocytes/100 WBC (Bld) 7.7 % 0-10 [facility] Neutrophils (Bld) [#/Vol] 5.7 10*3/uL 2.0-7.7 [facility] Neutrophils/100 WBC (Bld) 67.3 % 47-70 [facility] Potassium [Moles/Vol] 3.9 mmol/L 3.5-5.1 [facility] Protein [Mass/Vol] 7.8 g/dL 6.4-8.2 [facility] Sodium [Moles/Vol] 138 mmol/L 136-145 [facility] Triglyceride [Mass/Vol] 178 mg/dL <199 [facility] Comment on above: The drugs N-Acetylcy steine and Metamizole may falsely depress this assay.Serum Triglycerides Reference Interval Normal <150 mg/dL Borderline high 150 - 199 mg/dL High 200 - 499 mg/dL Very High > or = 500 mg/dL WBC (Bld) [#/Vol] 8.4 10*3/uL 4.4-11.0 [facility] Bilirubin Test strip Ql (U)O rdered By: Mark Phipps on 04-09-2023 Bilirubin Ql (U) Negative Negative [facility] Determination of erythrocyte mean corpuscular volume (MCV)Ordered By: Mark Phipps on 04-09-2023 MCV (RBC) [Entitic vol] 90.6 fL 81-99 [facility] Erythrocyte distribution wid th ratioOrdered By: Mark Phipps on 04-09-2023 Erythrocyte distribution width (RBC) [Ratio] 13.5 % 11.6-14.6 [facility] Erythrocyte distribution wid th standard deviationOrdered By: Mark Phipps on 04-09-2023 Erythrocyte distribution width (RBC) [Entitic vol] 45.0 fL 35.1-43.9 [facility] Hematocrit Auto (Bld) [Volum e fraction]Ordered By: Mark Phipps on 04-09-2023 Hematocrit (Bld) [Volume fraction] 45.2 % 37-47 [facility] High density lipoprotein (HD L) measurementOrdered By: Mark Phipps on 04-09-2023 Cholesterol in HDL (Body fld) [Mass/Vol] 65 mg/dL >40 [facility] Comment on above: The drugs N-Acetylcy steine and Metamizole may falsely depress this assay. Reference Range HDL <40 mg/dL Low HDL Cholesterol HDL >or= 60 mg/dL High HDL Cholesterol Immature granulocytes/100 WB C Auto (Bld)Ordered By: Mark Phipps on 04-09-2023 Immature granulocytes/100 WBC (Bld) 0.400 % 0.0-0.9 [facility] Comment on above: IG% - Immature Granu locytes (promyelocytes, myelocytes and metamyelocytes) > 1% indicates that a LEFT SHIFT is Present. Ketones Test strip Ql (U)Ord ered By: Mark Phipps on 04-09-2023 Ketones Ql (U) Negative Negative [facility] - Chemistry and C hemistry - challengeOrdered By: Mark Phipps on 04-09-2023 Albumin/Globulin [Mass ratio] 1.0 {ratio} 0.9-2.4 [facility] ALP [Catalytic activity/Vol] 110 U/L 45-117 [facility] ALT [Catalytic activity/Vol] 23 U/L 13-56 [facility] CO2 [Moles/Vol] 22.0 mmol/L 21.0-32.0 [facility] Globulin (S) [Mass/Vol] 4.0 g/dL 2.2-4.2 [facility] Magnesium [Mass/Vol] 2.5 mg/dL 1.6-2.6 [facility] Urea nitrogen/Creatinine [Mass ratio] 27.5 mg/mg 10-20 [facility] - Hematology and Cell countsOrdered By: Mark Phipps on 04-09-2023 MCH (RBC) [Entitic mass] 29.5 pg 27.0-32.0 [facility] MCHC (RBC) [Mass/Vol] 32.5 g/dL 32-36 [facility] Nucleated RBC/100 WBC (Bld) [Ratio] 0 % 0-5 [facility] Platelets (Bld) [#/Vol] 248 10*3/uL 150-450 [facility] Low density lipoprotein (LDL ) cholesterol measurementOrdered By: Mark Phipps on 04-09-2023 Cholesterol in LDL (Body fld) [Moles/Vol] 112 mg/dL 0-130 [facility] Mucus LM Ql (Urine sed)Order ed By: Mark Phipps on 04-09-2023 Mucus Ql (Urine sed) 0 SEEN /hpf [facility] Nitrite Test strip Ql (U)Ord ered By: Mark Phipps on 04-09-2023 Nitrite Ql (U) Negative Negative [facility] No Panel InformationOrdered By: Mark Phipps on 04-09-2023 Estimated GFR (MDRD) Amer 116 mL/min >60 [facility] Comment on above: GFR Calc Estimated GFR (MDRD) Non-Af Amer 96 mL/min >60 [facility] Comment on above: Non- GFR Calc Urine RBC 0 SEEN /hpf 0-5 [facility] Vitamin D 25-Hydroxy 40.3 ng/mL [facility] Comment on above: Vitamin D 25(OH) Sta tus Range Deficiency <20 ng/mL (50nmol/L) Insufficiency 20 - 30 ng/mL (50 - 75 nmol/L) Sufficiency 30 - 100 ng/mL (75 - 250 nmol/L) Toxicity >100 ng/mL (>250 nmol/L) Platelet mean volume [place] (Bld) [Entitic vol]Ordered By: Mark Phipps on 04-09-2023 Platelet mean volume (Bld) [Entitic vol] 9.7 fL 6.2-12.0 [facility] Protein Test strip Ql (U)Ord ered By: Mark Phipps on 04-09-2023 Protein Ql (U) Negative Negative [facility] RBC Auto (Bld) [#/Vol]Ordere d By: Mark Phipps on 04-09-2023 RBC (Bld) [#/Vol] 4.99 10*6/uL 4.2-5.4 [facility] Serum or plasma calcium cosmo urement (mass/volume)Ordered By: Mark Phipps on 04-09-2023 Calcium [Mass/Vol] 9.9 mg/dL 8.5-10.1 [facility] Serum or plasma creatinine m easurement (mass/volume)Ordered By: Mark Phipps on 04-09-2023 Creatinine [Mass/Vol] 0.66 mg/dL 0.55-1.02 [facility] Comment on above: The validity of the calculated GFR & GFRAA in patients over 70 years has not been determined. Clinical correlation is essential. Serum or plasma thyroid stim ulating hormone (TSH) measurement (units/volume)Ordered By: Mark Phipps on 04-09-2023 TSH Qn 4.01 uIU/mL 0.358-3.74 [facility] Serum or plasma urea nitroge n measurement (mass/volume)Ordered By: Mark Phipps on 04-09-2023 Urea nitrogen [Mass/Vol] 18 mg/dL 7-18 [facility] Squamous epithelial cells de tection in urine sediment by light microscopyOrdered By: Mark Phipps on 04-09-2023 Epithelial cells.squamous LM Ql (Urine sed) 0-5 SEEN /hpf 5-10 [facility] Thin prep Papanicolaou smear with manual screeningOrdered By: Mark Phipps on 04-09-2023 Thin prep Papanicolaou smear with manual screening 3.8 g/dL 3.2-5.0 [facility] Thin prep Papanicolaou smear with manual screening 15 U/L 15-37 [facility] Thin prep Papanicolaou smear with manual screening 7 5-15 [facility] Thin prep Papanicolaou smear with manual screening 1.02 ng/dL 0.76-1.46 [facility] Urine blood detectionOrdered By: Mark Phipps on 04-09-2023 RBC Ql (U) Negative Negative [facility] Urine clarityOrdered By: Steven Phipps on 04-09-2023 Clarity (U) Sl. Cloudy Clear [facility] Urine color determinationOrd ered By: Mark Phipps on 04-09-2023 Color (U) Yellow Yellow [facility] Urine glucose detectionOrder ed By: Mark Phipps on 04-09-2023 Glucose Ql (U) Normal mg/dl Normal [facility] Urine leukocyte esterase det ection by dipstickOrdered By: Mark Phipps on 04-09-2023 Leukocyte esterase Test strip Ql (U) 25 /ul Negative [facility] Urine pHOrdered By: Mark daily on 04-09-2023 pH (U) 5.0 [pH] 5.0 - 8.0 [facility] Urine sediment bacteria coun t by microscopy (number/high power field)Ordered By: Mark Phipps on 04-09-2023 Bacteria LM.HPF (Urine sed) [#/Area] 0 /[HPF] None Seen [facility] Urine specific gravity measu rementOrdered By: Mark Phipps on 04-09-2023 Specific gravity (U) [Rel density] 1.020 1.002-1.030 [facility] Urine urobilinogen measureme ntOrdered By: Mark Phipps on 04-09-2023 Urobilinogen Ql (U) Normal mg/dl Normal [facility] Very low density lipoprotein (VLDL) cholesterol measurementOrdered By: Mark Phipps on 04-09-2023 Cholesterol in VLDL Calc [Moles/Vol] 36 mg/dL 5-40 [facility] Whole blood hemoglobin A1c/t otal hemoglobin ratio (mass fraction)Ordered By: Mark Phipps on 04-09-2023 HbA1c (Bld) [Mass fraction] 5.5 % 3.8-5.6 [facility] Comment on above: Normal < 5.7 % Predi abetic 5.7 - 6.4 % Diabetic >or= 6.5 % Please note range changes. Absolute lymphocyte countOrd ered By: Dr. Phipps on 04-11-2022 Lymphocytes Auto (Unsp spec) [#/Vol] 2.79 10*3/uL 0.83-4.51 [facility] Basophil percentageOrdered B y: Dr. Phipps on 04-11-2022 Basophil percentage 0 SEEN /hpf 0-5 [facility] Basophils/100 WBC (Bld) 0.5 % 0-1 [facility] Bilirubin [Mass/Vol] 0.30 mg/dL 0.20-1.00 [facility] Comment on above: For patients on eltr ombopag therapy, use of Dimension [place] TBIL is not recommended. Chloride [Moles/Vol] 107 mmol/L 98-107 [facility] Cholesterol [Mass/Vol] 196 mg/dL <200 [facility] Comment on above: <200 mg/dL Desirable 200-240 mg/dL Borderline >240 mg/dL High Risk Eosinophils/100 WBC (Bld) 10.1 % 0-5 [facility] Glucose [Mass/Vol] 102 mg/dL 74-106 [facility] Comment on above: Fasting Glucose resu lt from 100 to 125 mg/dL suggests IMPAIRED HOMEOSTASIS per A.D.A. criteria. Neutrophils (Bld) [#/Vol] 4.2 10*3/uL 2.0-7.7 [facility] Neutrophils/100 WBC (Bld) 48.5 % 47-70 [facility] Potassium [Moles/Vol] 3.6 mmol/L 3.5-5.1 [facility] Protein [Mass/Vol] 7.5 g/dL 6.4-8.2 [facility] Sodium [Moles/Vol] 140 mmol/L 136-145 [facility] Triglyceride [Mass/Vol] 187 mg/dL <199 [facility] Comment on above: The drugs N-Acetylcy steine and Metamizole may falsely depress this assay.Serum Triglycerides Reference Interval Normal <150 mg/dL Borderline high 150 - 199 mg/dL High 200 - 499 mg/dL Very High > or = 500 mg/dL WBC (Bld) [#/Vol] 8.7 10*3/uL 4.4-11.0 [facility] Bilirubin Test strip Ql (U)O rdered By: Dr. Phipps on 04-11-2022 Bilirubin Ql (U) Negative Negative [facility] Blood erythrocytes count (nu mber/volume)Ordered By: Dr. Phipps on 04-11-2022 RBC (Bld) [#/Vol] 4.70 10*6/uL 4.2-5.4 [facility] Blood hemoglobin measurement (mass/volume)Ordered By: Dr. Phipps on 04-11-2022 Hemoglobin (Bld) [Mass/Vol] 14.0 g/dL 12.0-15.0 [facility] Blood lymphocytes/100 leukoc ytesOrdered By: Dr. Phipps on 04-11-2022 Lymphocytes/100 WBC (Bld) 32.0 % 19-41 [facility] Blood monocytes/100 leukocyt esOrdered By: Dr. Phipps on 04-11-2022 Monocytes/100 WBC (Bld) 8.7 % 0-10 [facility] Blood platelet mean volumeOr dered By: Dr. Phipps on 04-11-2022 Platelet mean volume (Bld) [Entitic vol] 10.2 fL 6.2-12.0 [facility] Determination of erythrocyte mean corpuscular volume (MCV)Ordered By: Dr. Phipps on 04-11-2022 MCV (RBC) [Entitic vol] 89.4 fL 81-99 [facility] Hematocrit Auto (Bld) [Volum e fraction]Ordered By: Dr. Phipps on 04-11-2022 Hematocrit (Bld) [Volume fraction] 42.0 % 37-47 [facility] Ketones Test strip Ql (U)Ord ered By: Dr. Phipps on 04-11-2022 Ketones Ql (U) Negative Negative [facility] Laboratory - Chemistry and C hemistry - challengeOrdered By: Dr. Phipps on 04-11-2022 ALP [Catalytic activity/Vol] 99 U/L 45-117 [facility] ALT [Catalytic activity/Vol] 25 U/L 13-56 [facility] CO2 [Moles/Vol] 23.0 mmol/L 21.0-32.0 [facility] Free T4 [Mass/Vol] 1.03 ng/dL 0.76-1.46 [facility] Globulin (S) [Mass/Vol] 3.7 g/dL 2.2-4.2 [facility] Magnesium [Mass/Vol] 2.1 mg/dL 1.6-2.6 [facility] Urea nitrogen/Creatinine [Mass ratio] 37.2 mg/mg 10-20 [facility] Laboratory - Hematology and Cell countsOrdered By: Dr. Phipps on 04-11-2022 Erythrocyte distribution width (RBC) [Entitic vol] 42.0 fL 35.1-43.9 [facility] Erythrocyte distribution width (RBC) [Ratio] 12.8 % 11.6-14.6 [facility] Immature granulocytes/100 WBC (Bld) 0.200 % 0.0-0.9 [facility] Comment on above: IG% - Immature Granu locytes (promyelocytes, myelocytes and metamyelocytes) > 1% indicates that a LEFT SHIFT is Present. MCH (RBC) [Entitic mass] 29.8 pg 27.0-32.0 [facility] Nucleated RBC/100 WBC (Bld) [Ratio] 0 % 0-5 [facility] MCHC Auto (RBC) [Mass/Vol]Or dered By: Dr. Phipps on 04-11-2022 MCHC (RBC) [Mass/Vol] 33.3 g/dL 32-36 [facility] Mucus LM Ql (Urine sed)Order ed By: Dr. Phipps on 04-11-2022 Mucus Ql (Urine sed) 0 SEEN /hpf [facility] Nitrite Test strip Ql (U)Ord ered By: Dr. Phipps on 04-11-2022 Nitrite Ql (U) Negative Negative [facility] No Panel InformationOrdered By: Dr. Phipps on 04-11-2022 Estimated GFR (MDRD) Amer 118 mL/min >60 [facility] Comment on above: GFR Calc Estimated GFR (MDRD) Non-Af Amer 98 mL/min >60 [facility] Comment on above: Non- GFR Calc Thyroid Stimulating Hormone (TSH) 3.69 uIU/mL 0.358-3.74 [facility] Platelets bldOrdered By: Dr. Phipps on 04-11-2022 Platelets (Bld) [#/Vol] 251 10*3/uL 150-450 [facility] Protein Test strip Ql (U)Ord ered By: Dr. Phipps on 04-11-2022 Protein Ql (U) Negative Negative [facility] Serum or plasma albumin cosmo urement (mass/volume)Ordered By: Dr. Phipps on 04-11-2022 Albumin [Mass/Vol] 3.8 g/dL 3.2-5.0 [facility] Serum or plasma albumin/glob ulin mass ratioOrdered By: Dr. Phipps on 04-11-2022 Albumin/Globulin [Mass ratio] 1.0 {ratio} 0.9-2.4 [facility] Serum or plasma calcium cosmo urement (mass/volume)Ordered By: Dr. Phipps on 04-11-2022 Calcium [Mass/Vol] 9.3 mg/dL 8.5-10.1 [facility] Serum or plasma cholesterol in HDL measurement (mass/volume)Ordered By: Dr. Phipps on 04-11-2022 Cholesterol in HDL [Mass/Vol] 74 mg/dL >40 [facility] Comment on above: The drugs N-Acetylcy steine and Metamizole may falsely depress this assay. Reference Range HDL <40 mg/dL Low HDL Cholesterol HDL >or= 60 mg/dL High HDL Cholesterol Serum or plasma cholesterol in VLDL measurement (mass/volume)Ordered By: Dr. Phipps on 04-11-2022 Cholesterol in VLDL [Mass/Vol] 37 mg/dL 5-40 [facility] Serum or plasma creatinine m easurement (mass/volume)Ordered By: Dr. Phipps on 04-11-2022 Creatinine [Mass/Vol] 0.65 mg/dL 0.55-1.02 [facility] Comment on above: The validity of the calculated GFR & GFRAA in patients over 70 years has not been determined. Clinical correlation is essential. Serum or plasma low density lipoprotein (LDL) cholesterol measurement (mass/volume)Ordered By: Dr. Phipps on 04-11-2022 Cholesterol in LDL [Mass/Vol] 85 mg/dL 0-130 [facility] Serum or plasma urea nitroge n measurement (mass/volume)Ordered By: Dr. Phipps on 04-11-2022 Urea nitrogen [Mass/Vol] 24 mg/dL 7-18 [facility] Squamous epithelial cells de tection in urine sediment by light microscopyOrdered By: Dr. Phipps on 04-11-2022 Epithelial cells.squamous LM Ql (Urine sed) 0 SEEN /hpf 5-10 [facility] Thin prep Papanicolaou smear with manual screeningOrdered By: Dr. Phipps on 04-11-2022 Thin prep Papanicolaou smear with manual screening 15 U/L 15-37 [facility] Thin prep Papanicolaou smear with manual screening 10 5-15 [facility] Urine blood detectionOrdered By: Dr. Phipps on 04-11-2022 RBC Ql (U) Negative Negative [facility] RBC Ql (U) 0 SEEN /hpf 0-5 [facility] Urine clarityOrdered By: Dr. Phipps on 04-11-2022 Clarity (U) Clear Clear [facility] Urine color determinationOrd ered By: Dr. Phipps on 04-11-2022 Color (U) Yellow Yellow [facility] Urine glucose detectionOrder ed By: Dr. Phipps on 04-11-2022 Glucose Ql (U) Normal mg/dl Normal [facility] Urine leukocyte esterase det ection by dipstickOrdered By: Dr. Phipps on 04-11-2022 Leukocyte esterase Test strip Ql (U) Negative Negative [facility] Urine pHOrdered By: Dr. Rosanna aguirre on 04-11-2022 pH (U) 5.0 [pH] 5.0 - 8.0 [facility] Urine sediment bacteria coun t by microscopy (number/high power field)Ordered By: Dr. Phipps on 04-11-2022 Bacteria LM.HPF (Urine sed) [#/Area] 0 /[HPF] None Seen [facility] Urine specific gravity measu rementOrdered By: Dr. Phipps on 04-11-2022 Specific gravity (U) [Rel density] 1.025 1.002-1.030 [facility] Urobilinogen Auto test strip Ql (U)Ordered By: Dr. Phipps on 04-11-2022 Urobilinogen Ql (U) Normal mg/dl Normal [facility] Whole blood hemoglobin A1c/t otal hemoglobin ratio (mass fraction)Ordered By: Dr. Phipps on 04-11-2022 HbA1c (Bld) [Mass fraction] 5.6 % 3.8-5.6 [facility] Comment on above: Normal < 5.7 % Predi abetic 5.7 - 6.4 % Diabetic >or= 6.5 % Please note range changes. Basophil percentageon 2021 Chloride [Moles/Vol] 105 mmol/L 98-107 [facility] Work Phone: Glucose [Mass/Vol] 87 mg/dL 74-106 [facility] Work Phone: Potassium [Moles/Vol] 3.9 mmol/L 3.5-5.1 [facility] Work Phone: Sodium [Moles/Vol] 140 mmol/L 136-145 [facility] Work Phone: Laboratory - Chemistry and C hemistry - challengeon 10-16-2021 CO2 [Moles/Vol] 25.0 mmol/L 21.0-32.0 [facility] Work Phone: Urea nitrogen/Creatinine [Mass ratio] 27.7 mg/mg 10-20 [facility] Work Phone: No Panel Informationon 10-16 Estimated GFR (MDRD) Amer 111 mL/min >60 [facility] Work Phone: Comment on above: GFR Calc Estimated GFR (MDRD) Non-Af Amer 92 mL/min >60 [facility] Work Phone: Comment on above: Non- GFR Calc Serum or plasma calcium cosmo urement (mass/volume)on 10-16-2021 Calcium [Mass/Vol] 9.5 mg/dL 8.5-10.1 [facility] Work Phone: Serum or plasma creatinine m easurement (mass/volume)on 10-16-2021 Creatinine [Mass/Vol] 0.68 mg/dL 0.55-1.02 [facility] Work Phone: Comment on above: The validity of the calculated GFR & GFRAA in patients over 70 years has not been determined. Clinical correlation is essential. Serum or plasma urea nitroge n measurement (mass/volume)on 10-16-2021 Urea nitrogen [Mass/Vol] 19 mg/dL 7-18 [facility] Work Phone: Thin prep Papanicolaou smear with manual screeningon 10-16-2021 Thin prep Papanicolaou smear with manual screening 10 5-15 [facility] Work Phone: Basophil percentageon 2021 Chloride [Moles/Vol] 108 mmol/L 98-107 [facility] Work Phone: Glucose [Mass/Vol] 91 mg/dL 74-106 [facility] Work Phone: [phone] Potassium [Moles/Vol] 3.8 mmol/L 3.5-5.1 [facility] Work Phone: [phone] Sodium [Moles/Vol] 139 mmol/L 136-145 [facility] Work Phone: [phone] Laboratory - Chemistry and C hemistry - challengeon 09-11-2021 CO2 [Moles/Vol] 25.0 mmol/L 21.0-32.0 [facility] Work Phone: Urea nitrogen/Creatinine [Mass ratio] 25.3 mg/mg 10-20 [facility] Work Phone: [phone] No Panel Informationon 09-11 Estimated GFR (MDRD) Amer 100 mL/min >60 [facility] Work Phone: Comment on above: GFR Calc Estimated GFR (MDRD) Non-Af Amer 82 mL/min >60 [facility] Work Phone: Comment on above: Non- GFR Calc Serum or plasma calcium cosmo urement (mass/volume)on 09-11-2021 Calcium [Mass/Vol] 9.7 mg/dL 8.5-10.1 [facility] Work Phone: Serum or plasma creatinine m easurement (mass/volume)on 09-11-2021 Creatinine [Mass/Vol] 0.75 mg/dL 0.55-1.02 [facility] Work Phone: Comment on above: The validity of the calculated GFR & GFRAA in patients over 70 years has not been determined. Clinical correlation is essential. Serum or plasma urea nitroge n measurement (mass/volume)on 09-11-2021 Urea nitrogen [Mass/Vol] 19 mg/dL 7-18 [facility] Work Phone: Thin prep Papanicolaou smear with manual screeningon 09-11-2021 Thin prep Papanicolaou smear with manual screening 6 5-15 [facility] Work Phone: Basophil percentageon 2021 Potassium [Moles/Vol] 3.2 mmol/L 3.5-5.1 [facility] Work Phone: Basophil percentageon 2021 Potassium [Moles/Vol] 3.1 mmol/L 3.5-5.1 [facility] Work Phone: Basophil percentageon 2021 Chloride [Moles/Vol] 107 mmol/L 98-107 [facility] Work Phone: Glucose [Mass/Vol] 89 mg/dL 74-106 [facility] Work Phone: Potassium [Moles/Vol] 3.7 mmol/L 3.5-5.1 [facility] Work Phone: Sodium [Moles/Vol] 139 mmol/L 136-145 [facility] Work Phone: Laboratory - Chemistry and C hemistry - challengeon 06-26-2021 CO2 [Moles/Vol] 25.0 mmol/L 21.0-32.0 [facility] Work Phone: Urea nitrogen/Creatinine [Mass ratio] 32.6 mg/mg 10-20 [facility] Work Phone: No Panel Informationon 06-26 Estimated GFR (MDRD) Amer 113 mL/min >60 [facility] Work Phone: Comment on above: GFR Calc Estimated GFR (MDRD) Non-Af Amer 93 mL/min >60 [facility] Work Phone: Comment on above: Non- GFR Calc Serum or plasma calcium cosmo urement (mass/volume)on 06-26-2021 Calcium [Mass/Vol] 9.4 mg/dL 8.5-10.1 [facility] Work Phone: Serum or plasma creatinine m easurement (mass/volume)on 06-26-2021 Creatinine [Mass/Vol] 0.68 mg/dL 0.55-1.02 [facility] Work Phone: Comment on above: The validity of the calculated GFR & GFRAA in patients over 70 years has not been determined. Clinical correlation is essential. Serum or plasma urea nitroge n measurement (mass/volume)on 06-26-2021 Urea nitrogen [Mass/Vol] 22 mg/dL 7-18 [facility] Work Phone: Thin prep Papanicolaou smear with manual screeningon 06-26-2021 Thin prep Papanicolaou smear with manual screening 7 5-15 [facility] Work Phone: Absolute lymphocyte counton 06-23-2021 Lymphocytes Auto (Unsp spec) [#/Vol] 2.23 10*3/uL 0.83-4.51 [facility] Work Phone: Basophil percentageon 2021 Basophil percentage 0 SEEN /hpf 0-5 [facility] Work Phone: Basophils/100 WBC (Bld) 0.4 % 0-1 [facility] Work Phone: Bilirubin [Mass/Vol] 0.40 mg/dL 0.20-1.00 [facility] Work Phone: Comment on above: For patients on eltr ombopag therapy, use of Dimension [place] TBIL is not recommended. Chloride [Moles/Vol] 104 mmol/L 98-107 [facility] Work Phone: Cholesterol [Mass/Vol] 213 mg/dL <200 [facility] Work Phone: Comment on above: <200 mg/dL Desirable 200-240 mg/dL Borderline >240 mg/dL High Risk Eosinophils/100 WBC (Bld) 7.8 % 0-5 [facility] Work Phone: Glucose [Mass/Vol] 111 mg/dL 74-106 [facility] Work Phone: Comment on above: Fasting Glucose resu lt from 100 to 125 mg/dL suggests IMPAIRED HOMEOSTASIS per A.D.A. criteria. Neutrophils (Bld) [#/Vol] 3.9 10*3/uL 2.0-7.7 [facility] Work Phone: Neutrophils/100 WBC (Bld) 52.4 % 47-70 [facility] Work Phone: Potassium [Moles/Vol] 2.5 mmol/L 3.5-5.1 [facility] Work Phone: Protein [Mass/Vol] 7.7 g/dL 6.4-8.2 [facility] Work Phone: Sodium [Moles/Vol] 139 mmol/L 136-145 [facility] Work Phone: [phone] Triglyceride [Mass/Vol] 108 mg/dL <199 [facility] Work Phone: [phone] Comment on above: The drugs N-Acetylcy steine and Metamizole may falsely depress this assay.Serum Triglycerides Reference Interval Normal <150 mg/dL Borderline high 150 - 199 mg/dL High 200 - 499 mg/dL Very High > or = 500 mg/dL WBC (Bld) [#/Vol] 7.4 10*3/uL 4.4-11.0 [facility] Work Phone: [phone] Bilirubin Test strip Ql (U)o n 06-23-2021 Bilirubin Ql (U) Negative Negative [facility] Work Phone: [phone] Blood erythrocytes count (nu mber/volume)on 06-23-2021 RBC (Bld) [#/Vol] 4.75 10*6/uL 4.2-5.4 [facility] Work Phone: [phone] Blood hemoglobin measurement (mass/volume)on 06-23-2021 Hemoglobin (Bld) [Mass/Vol] 13.9 g/dL 12.0-15.0 [facility] Work Phone: [phone] Blood lymphocytes/100 leukoc yteson 06-23-2021 Lymphocytes/100 WBC (Bld) 30.0 % 19-41 [facility] Work Phone: [phone] Blood monocytes/100 leukocyt eson 06-23-2021 Monocytes/100 WBC (Bld) 9.1 % 0-10 [facility] Work Phone: [phone] Blood platelet mean volumeon 06-23-2021 Platelet mean volume (Bld) [Entitic vol] 10.0 fL 6.2-12.0 [facility] Work Phone: [phone] Determination of erythrocyte mean corpuscular volume (MCV)on 06-23-2021 MCV (RBC) [Entitic vol] 87.4 fL 81-99 [facility] Work Phone: [phone] Hematocrit Auto (Bld) [Volum e fraction]on 06-23-2021 Hematocrit (Bld) [Volume fraction] 41.5 % 37-47 [facility] Work Phone: [phone] Ketones Test strip Ql (U)on 06-23-2021 Ketones Ql (U) Negative Negative [facility] Work Phone: [phone] Laboratory - Chemistry and C hemistry - challengeon 06-23-2021 ALP [Catalytic activity/Vol] 97 U/L 45-117 [facility] Work Phone: [phone] ALT [Catalytic activity/Vol] 28 U/L 13-56 [facility] Work Phone: [phone] CO2 [Moles/Vol] 27.0 mmol/L 21.0-32.0 [facility] Work Phone: [phone] Free T4 [Mass/Vol] 1.00 ng/dL 0.76-1.46 [facility] Work Phone: [phone] Globulin (S) [Mass/Vol] 4.1 g/dL 2.2-4.2 [facility] Work Phone: [phone] Urea nitrogen/Creatinine [Mass ratio] 40.3 mg/mg 10-20 [facility] Work Phone: [phone] Laboratory - Hematology and Cell countson 06-23-2021 Erythrocyte distribution width (RBC) [Entitic vol] 41.4 fL 35.1-43.9 [facility] Work Phone: [phone] Erythrocyte distribution width (RBC) [Ratio] 13.0 % 11.6-14.6 [facility] Work Phone: [phone] Immature granulocytes/100 WBC (Bld) 0.300 % 0.0-0.9 [facility] Work Phone: [phone] Comment on above: IG% - Immature Granu locytes (promyelocytes, myelocytes and metamyelocytes) > 1% indicates that a LEFT SHIFT is Present. MCH (RBC) [Entitic mass] 29.3 pg 27.0-32.0 [facility] Work Phone: [phone] Nucleated RBC/100 WBC (Bld) [Ratio] 0 % 0-5 [facility] Work Phone: MCHC Auto (RBC) [Mass/Vol]on 06-23-2021 MCHC (RBC) [Mass/Vol] 33.5 g/dL 32-36 [facility] Work Phone: Mucus LM Ql (Urine sed)on Mucus Ql (Urine sed) 0 SEEN /hpf [facility] Work Phone: Nitrite Test strip Ql (U)on 06-23-2021 Nitrite Ql (U) Negative Negative [facility] Work Phone: No Panel Informationon 06-23 Estimated GFR (MDRD) Amer 124 mL/min >60 [facility] Work Phone: Comment on above: GFR Calc Estimated GFR (MDRD) Non-Af Amer 103 mL/min >60 [facility] Work Phone: Comment on above: Non- GFR Calc Thyroid Stimulating Hormone (TSH) 5.23 uIU/mL 0.358-3.74 [facility] Work Phone: Platelets bldon 06-23-2021 Platelets (Bld) [#/Vol] 250 10*3/uL 150-450 [facility] Work Phone: Protein Test strip Ql (U)on 06-23-2021 Protein Ql (U) Negative Negative [facility] Work Phone: [phone] Serum or plasma albumin cosmo urement (mass/volume)on 06-23-2021 Albumin [Mass/Vol] 3.6 g/dL 3.2-5.0 [facility] Work Phone: [phone] Serum or plasma albumin/glob ulin mass ratioon 06-23-2021 Albumin/Globulin [Mass ratio] 0.9 {ratio} 0.9-2.4 [facility] Work Phone: [phone] Serum or plasma calcium cosmo urement (mass/volume)on 06-23-2021 Calcium [Mass/Vol] 9.1 mg/dL 8.5-10.1 [facility] Work Phone: Serum or plasma cholesterol in HDL measurement (mass/volume)on 06-23-2021 Cholesterol in HDL [Mass/Vol] 74 mg/dL >40 [facility] Work Phone: [phone] Comment on above: The drugs N-Acetylcy steine and Metamizole may falsely depress this assay. Reference Range HDL <40 mg/dL Low HDL Cholesterol HDL >or= 60 mg/dL High HDL Cholesterol Serum or plasma cholesterol in VLDL measurement (mass/volume)on 06-23-2021 Cholesterol in VLDL [Mass/Vol] 22 mg/dL 5-40 [facility] Work Phone: [phone] Serum or plasma creatinine m easurement (mass/volume)on 06-23-2021 Creatinine [Mass/Vol] 0.62 mg/dL 0.55-1.02 [facility] Work Phone: Comment on above: The validity of the calculated GFR & GFRAA in patients over 70 years has not been determined. Clinical correlation is essential. Serum or plasma low density lipoprotein (LDL) cholesterol measurement (mass/volume)on 06-23-2021 Cholesterol in LDL [Mass/Vol] 117 mg/dL 0-130 [facility] Work Phone: [phone] Serum or plasma urea nitroge n measurement (mass/volume)on 06-23-2021 Urea nitrogen [Mass/Vol] 25 mg/dL 7-18 [facility] Work Phone: [phone] Squamous epithelial cells de tection in urine sediment by light microscopyon 06-23-2021 Epithelial cells.squamous LM Ql (Urine sed) 0 SEEN /hpf 5-10 [facility] Work Phone: [phone] Thin prep Papanicolaou smear with manual screeningon 06-23-2021 Thin prep Papanicolaou smear with manual screening 21 U/L 15-37 [facility] Work Phone: [phone] Thin prep Papanicolaou smear with manual screening 8 5-15 [facility] Work Phone: [phone] Urine blood detectionon 04-0 RBC Ql (U) Negative Negative [facility] Work Phone: [phone] RBC Ql (U) 0 SEEN /hpf 0-5 [facility] Work Phone: Urine clarityon 06-23-2021 Clarity (U) Clear Clear [facility] Work Phone: Urine color determinationon 06-23-2021 Color (U) Yellow Yellow [facility] Work Phone: Urine glucose detectionon Glucose Ql (U) Normal mg/dl Normal [facility] Work Phone: [phone] Urine leukocyte esterase det ection by dipstickon 06-23-2021 Leukocyte esterase Test strip Ql (U) Negative Negative [facility] Work Phone: Urine pHon 06-23-2021 pH (U) 6.5 [pH] 5.0 - 8.0 [facility] Work Phone: Urine sediment bacteria coun t by microscopy (number/high power field)on 06-23-2021 Bacteria LM.HPF (Urine sed) [#/Area] 0 /[HPF] None Seen [facility] Work Phone: Urine specific gravity measu rementon 06-23-2021 Specific gravity (U) [Rel density] 1.010 1.002-1.030 [facility] Work Phone: Urobilinogen Auto test strip Ql (U)on 06-23-2021 Urobilinogen Ql (U) Normal mg/dl Normal [facility] Work Phone: Whole blood hemoglobin A1c/t otal hemoglobin ratio (mass fraction)on 06-23-2021 HbA1c (Bld) [Mass fraction] 5.8 % 3.8-5.6 [facility] Work Phone: Comment on above: Normal < 5.7 % Predi abetic 5.7 - 6.4 % Diabetic >or= 6.5 % Please note range changes. Vital Signs Date Time Vital Sign Value Performing Clinician Faci lity 01-08-2023 07:51-0400 Body height 158.[address] Mark Phipps Work Phone: [facility] 01-08-2023 07:51-0400 Body mass index (BMI) [Ratio] 34.5 kg/m2 Dr. Mark Phipps Work Phone: [facility] 01-08-2023 07:51-0400 Body temperature 98 [degF] Dr. Mark Phipps Work Phone: [facility] 01-08-2023 07:51-0400 Body weight 87.[address] Mark Phipps Work Phone: [facility] 01-08-2023 07:51-0400 Diastolic blood pressure 78 mm[Hg] Dr. Mark Phipps Work Phone: [facility] 01-08-2023 07:51-0400 Heart rate 70 /min Dr. Mark Phipps Work Phone: [facility] 01-08-2023 07:51-0400 Respiratory rate 17 /min Dr. Mark Phipps Work Phone: [facility] 01-08-2023 07:51-0400 SaO2% (BldA) [Mass fraction] 97 % Dr. Mark Phipps Work Phone: [facility] 01-08-2023 07:51-0400 Systolic blood pressure 134 mm[Hg] Dr. Mark Phipps Work Phone: [facility] 06-23-2021 18:06-0400 Diastolic blood pressure 82 mm[Hg] [facility] Work Phone: 06-23-2021 18:06-0400 Heart rate 61 /min [facility] Work Phone: 06-23-2021 18:06-0400 Systolic blood pressure 153 mm[Hg] [facility] Work Phone: 06-23-2021 18:05-0400 Respiratory rate 13 /min [facility] Work Phone: 06-23-2021 14:14-0400 Body height 160.02 cm [facility] Work Phone: 06-23-2021 14:140400 Body mass index (BMI) [Ratio] 31.8 kg/m2 [facility] Work Phone: 06-23-2021 14:14-040 Body temperature 97 [degF] [facility] Work Phone: 06-23-2021 14:14040 Body weight 81.64 kg [facility] Work Phone: 06-23-2021 14:14-040 SaO2% (BldA) [Mass fraction] 98 % [facility] Work Phone: Encounters Encounter Date Encounter Type Care Provider Facility Start: 09-09-2024 ambulatory Mark Phipps Facilit y:[facility] Start: 08-28-2024 ambulatory Mark Phipps Facilit y:[facility] Start: 08-12-2024 End: 08-12-[address] Mark Phipps MD Work Phone: [facility] Work Phone: Start: 08-12-2024 End: 08-12-[address] Mark Phipps MD -Laboratory [facility] Start: 08-12-2024 End: 08-12-2024 ambulatory Mark Phipps Facility:[facility] Start: 08-10-2024 End: 08-10-[address] MARCELA GÓMEZ DO Facility:[facility] Start: 08-10-2024 Encounter for preprocedural laboratory examination DR MARCELA GÓMEZ DO [facility] Start: 08-10-2024 End: 08-10-[address] MARCELA GÓMEZ DO [facility] Start: 05-20-2024 End: 05-20-2024 ambulatory ANSHUL MONTGOMERY Facility:[facility] Start: 05-20-2024 End: 05-20-2024 Patient encounter procedure Anshul Montgomery MD Work Phone: General Surgery Comment on above: RUQ pain (Primary Dx ); Calculus of gallbladder without cholecystitis without obstruction Start: 05-01-2024 ambulatory Mark Phipps Facilit y:[facility] Start: 04-30-2024 End: 04-30-[address] Mark Phipps MD -Ultrasound [facility] Work Phone: Start: 04-30-2024 End: 04-30-2024 ambulatory Mark Phipps Facility:[facility] Start: 04-28-2024 End: 04-28-[address] Mark Phipps MD -Laboratory [facility] Start: 04-28-2024 End: 04-28-2024 ambulatory Mark Phipps Facility:[facility] Start: 01-21-2024 End: 01-21-2024 ambulatory Mark Phipps Facility:[facility] Start: 10-22-2023 End: 10-22-2023 ambulatory Mark Phipps Facility:[facility] Start: 04-09-2023 End: 04-09-[address] Mark Phipps Work Phone: [facility] Work Phone: Start: 04-09-2023 End: 04-09-[address] Mark Phipps Work Phone[facility] Work Phone: Start: 01-18-2023 End: 01-18-[address] Mark Phipps Work Phone: [facility]-Outpatient Breast Imaging Work Phone: Start: 01-08-2023 End: 01-08-[address] Mark Phipps Work Phone: [facility] Work Phone: Start: 10-18-2022 End: 10-18-2022 ambulatory [facility] Work Phone: Start: 10-18-2022 End: 10-18-2022 Patient encounter procedure [facility]-Radiology, [place] Work Phone: Start: 09-19-2022 Registered Recurring [facility]-Physical Therapy Work Phone: Start: 04-11-2022 End: 04-11-[address] Mark Phipps Work Phone: [facility] Work Phone: Start: 04-11-2022 End: 04-11-[address] Mark Phipps Work Phone: [facility] Start: 02-07-2022 End: 02-07-[address] [facility] Start: 02-07-2022 End: 02-07-[address] Mark Phipps Work Phone: [facility] Start: 01-26-2022 End: 01-26-[address] Mark Phipps Work Phone: [facility] Start: 01-17-2022 End: 01-17-2022 ambulatory [facility] Work Phone: Start: 01-17-2022 End: 01-17-2022 Patient encounter procedure [facility]-Outpatient Breast Imaging Start: 10-16-2021 End: 10-16-2021 Patient encounter procedure [facility] Start: 09-11-2021 End: 09-11-2021 Patient encounter procedure [facility] Start: 08-18-2021 End: 08-18-2021 Patient encounter procedure [facility] Start: 08-09-2021 End: 08-09-2021 Patient encounter procedure [facility] Start: 07-18-2021 End: 07-18-2021 Patient encounter procedure [facility] Start: 06-26-2021 End: 06-26-2021 Patient encounter procedure [facility] Start: 06-23-2021 End: 06-23-2021 Emergency department patient visit [facility]-Emergency Department Start: 06-23-2021 End: 06-23-2021 Patient encounter procedure [facility] Family Procedures Date Procedure Procedure Detail Performing Clinician Start: 08-12-2024 Urnls dip stick/tabl et reagent auto microscopy Dr. Mark Phipps MD Work Phone: Start: 04-30-[address] Mark Phipps MD Work Phone: Start: 04-30-2024 US scan of thyroid Dr. Mark Phipps MD Work Phone: Start: 04-28-[address] Mark Phipps MD Work Phone: Start: 04-28-2024 Urine microalbumin/creatinine ratio measurement Dr. Mark Phipps MD Work Phone: Start: 04-28-2024 Measurement of renal function Dr. Mark Phipps MD Work Phone: Comment on above: GFR Calc Start: 04-28-2024 Vitamin D, 25-hydrox y measurement Dr. Mark Phipps MD Work Phone: Comment on above: Vitamin D 25(OH) Sta tus Range Deficiency <20 ng/mL (50nmol/L) Insufficiency 20 - 30 ng/mL (50 - 75 nmol/L) Sufficiency 30 - 100 ng/mL (75 - 250 nmol/L) Toxicity >100 ng/mL (>250 nmol/L) Start: 01-18-2023 Screening mammography Nigel Phipps Work Phone: Start: 01-08-2023 X-ray of lumbar spin e, two or three views Dr. Mark Phipps Work Phone: Start: 10-18-2022 X-ray of lumbar spin e, two or three views Start: 01-26-2022 US scan of thyroid Dr. Mark Phipps Work Phone: Start: 01-17-2022 Screening mammography Start: 06-15-2016 Lipid 1996 panel - S mary or Plasma Anshul Montgomery MD Work Phone: Start: 07-25-2009 Colonoscopy Anshul deleon MD Work Phone: Plan of Treatment Date Care Activity Detail Author Start: 10-01-2029 Urine microalbumin profile DTaP,Tdap,Td Vaccine (3 - Td or Tdap) [facility] Start: 03-25-2024 Advance Directive Discussion Advance Directive Discussion [facility] Start: 11-24-2023 Covid-19 Vaccine ( season) Covid-19 Vaccine ( season) [facility] Start: 11-24-2023 Influenza vaccination Influenza Vacc ine (#1) [facility] Start: 01-08-2023 Patient referral [facility] Work Phone: Start: 2021 Screening for osteoporosis Bone Density Screening [facility] Start: 06-15-2021 Lipid panel Lipid Screening [facility] Start: 07-26-2019 Screening for malign ant neoplasm of colon [facility] Start: 06-16-2019 Diabetes Screening Diabetes Screenin g [facility] Start: 06-21-2017 Screening for malign ant neoplasm of breast Mammogram Screening [facility] Start: 2016 RSV Vaccine (1 - Ris k 60-74 years 1-dose series) RSV Vaccine (1 - Risk 60-74 years 1-dose series) [facility] Start: 2006 Shingrix Vaccine (1 of 2) Shingrix Vaccine (1 of 2) [facility] Start: 2001 Screening for malign ant neoplasm of colon [facility] Start: 1974 Annual PCP Team [employer] tamar Disease Visit Annual PCP Team Chronic Disease Visit [facility] Start: 1974 Anxiety Screening Anxiety Screening [facility] Start: 1974 Hepatitis C screening Hepatitis C Sc leslie [facility] Start: 1974 Spirometry Spirometry [facility] Patient Education ED Hypokalemia [facility] Work Phone: Patient referral [facility] Work Phone: Immunizations Immunization Date Immunization Notes Care Provider Fa tyrell 06-13-2016 influenza virus vaccine, unspecified formulation Anshul Montgomery MD Work Phone: [facility] 04-29-2012 tetanus toxoid, redu jesus manuel diphtheria toxoid, and acellular pertussis vaccine, adsorbed Anshul Montgomery MD Work Phone: [facility] Work Phone: 11-24-2003 tetanus and diphther ia toxoids, adsorbed, preservative free, for adult use (2 Lf of tetanus toxoid and 2 Lf of diphtheria toxoid) Anshul Montgomery MD Work Phone: [facility] Payers Date Payer Category Payer Medicare [id number] 2024 Unknown [id number] 2024 Medicare (Managed Care) [facility]LY [facility] HMO [id number] 2023 Self-pay [id number] 2023 Unknown [id number] 1955 Unknown [id number] Medicare [id number] Unknown [id number] Unknown [facility] [id number] Unknown [id number] Unknown [id number] Unknown [id number] Unknown [id number] Unknown [id number] Unknown [id number] Unknown [id number] Unknown [id number] Social History Date Type Detail Facility Start: 06-23-2021 End: 01-08-2023 Tobacco smoking status [facility] Unknown if ever smoked [facility] Start: 10-09-2019 Non-smoker [facility] Start: 1955 Sex Assigned At Female W [facility] Start: 12-17-2011 End: 01-08-2023 Tobacco smoking status [facility] Never smoked tobacco [facility] Start: 12-17-2011 Tobacco use and exposure Smokeless tobacco non-user [facility] Start: 05-20-2024 Alcoholic beverage intake Current drinker of alcohol (finding) [facility] Start: 05-20-2024 History of Social function [facility] Start: 05-20-2024 Tobacco use panel [facility] National Score (1-10 0), lower number is lower risk 80 [facility] Start: 10-13-2013 Alcohol Comment rarely [facility] Start: 09-26-2016 Gender identity Identifies as female gender (finding) [facility] Start: 09-26-2016 Sexual orientation Heterosexual (abel delvalle) [facility] Tobacco smoking status [facility] Start: 08-10-2024 Sex Female (finding) [facility] Functional Status Date Assessment Result Facility 10-05-2014 Are you deaf, or do you have serious difficulty hearing No 10/05/2014 9:48 AM Shirley Coleman RN No [facility] 10-05-2014 Are you blind, or do you have serious difficulty seeing, even when wearing glasses No 10/05/2014 9:48 AM Shirley Coleman RN No [facility] 10-05-2014 Do you have serious difficulty walking or climbing stairs No 10/05/2014 9:48 AM Shirley Coleman RN No [facility] 10-05-2014 Do you have difficul ty dressing or bathing No 10/05/2014 9:48 AM Shirley Coleman RN No [facility] 10-05-2014 Because of a physica l, mental, or emotional condition, do you have difficulty doing errands alone such as visiting a physician's office or shopping No 10/05/2014 9:48 AM Shirley Coleman RN No [facility] Mental Status Date Assessment Result Facility 06-23-2021 Cognitive function Level Of Cons ciousness Awake;Alert;Appropriate;Fol lows Commands [facility] Work Phone: 10-05-2014 Because of a physica l, mental, or emotional condition, do you have serious difficulty concentrating, remembering, or making decisions No 10/05/2014 9:48 AM Shirley Coleman RN No [facility] Clinical Notes 05-20-2024 Anshul Montgomery MD - 05/20/2024 12:31 PM Geoff Castillo LPN - 05/20/2024 9:32 AM EST Note Date & Type Note Facility 05-20-2024 Note HNO ID: [id number] Author: ANSHUL MONTGOMERY MD Service: ? Author Type: Physician Type: Progress Notes Filed: 05/20/2024 12:44 Note Text: HISTORY AND PHYSICAL Rocky Odomter 1955 REFERRING PHYSICIAN: Mark Phipps MD CHIEF COMPLAINT: Consult (Gallstones) HPI: Rocky is a 68 year old female with a complaint of right upper quadrant pain. The patient has had symptoms of right upper quadrant pain for some time. The symptoms occur on an almost daily basis. She notes transient discomfort that last a few minutes. This will occur after bending over or twisting. This does not seem to be related to eating food. This is not truly colic in nature The patient was seen by her primary care physician. Rocky underwent an ultrasound. These tests demonstrated cholelithiasis and sludge. The patient is referred for evaluation and treatment. The patient is being seen by me today at the request of Dr. Mark Phipps MD, for my opinion and advice regarding atypical right upper quadrant pain and cholelithiasis/sludge. 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 OPERATIONS: PAST SURGICAL HISTORY Procedure Laterality Date ADENOIDECTOMY PRIMARY Adenoidectomy ARTHROSCOPY KNEE DIAGNOSTIC W/WO SYNOVIAL BX SPX Arthroscopy, knee right COLONOSCOPY FLX DX W/COLLJ SPEC WHEN PFRMD 07/25/09 Normal PAST SURGICAL HISTORY OF FOOT, both - heel spurs PAST SURGICAL HISTORY OF Right great toe correction THYROID RIGHT FINE NEEDLE ASPIRATION 09/23/08 TONSILLECTOMY PRIMARY/SECONDARY Tonsillectomy TOTAL ABDOMINAL HYSTERECT W/WO RMVL TUBE OVARY Hysterectomy, TAHBSO for fibroids AND DUB CURRENT MEDICATIONS: Current Outpatient Medications Medication Sig Dispense Refill budesonide-formoterol (SYMBICORT) 80-4.5 mcg/actuation inhaler Inhale 2 Puffs as instructed two times a day as needed. cholecalciferol (VITAMIN D-3) 50 mcg (2,000 unit) tablet Take 2,000 Units by mouth once daily. amLODIPine (NORVASC) 10 mg tablet Take 10 mg by mouth once daily. spironolactone (ALDACTONE) 50 mg tablet Take 50 mg by mouth once daily. albuterol HFA (PROVENTIL HFA, VENTOLIN HFA) 90 mcg/actuation inhaler Inhale 2 Puffs as instructed every 4 hours as needed. 1 Inhaler 2 ibuprofen (MOTRIN) 200 mg tablet Take 1-2 tablets by mouth every 6 hours as needed for Pain (Take with food.). 0 beclomethasone (QVAR) 80 mcg/actuation inhaler Inhale 1 Puff as instructed twice daily. 1 Inhaler 2 montelukast (SINGULAIR) 10 mg tablet Take 1 tablet by mouth daily at bedtime. 30 tablet 3 albuterol HFA (VENTOLIN HFA) 90 mcg/actuation inhaler Inhale 2 Puffs as instructed every 4 hours as needed for Wheezing/Shortness of Breath. 1 Inhaler 0 No current facility-administered medications for this visit. ALLERGIES: Patient has no known allergies. PERSONAL HISTORY: Social History Tobacco Use Smoking status: Never Smokeless tobacco: Never Substance Use Topics Alcohol use: Yes Comment: rarely Drug use: No FAMILY HISTORY: FAMILY HISTORY Problem Relation Age of Onset Cancer Father Prostate Stroke Father Cancer Mother BREAST and stomach cancer Thyroid Mother Heart Sister HI,DM Diabetes Sister other (Other) Sister No ovary/uterine body/colon cancer; ? sister with cervical cancer REVIEW OF SYMPTOMS: The review of systems data was entered by the nurse and reviewed by me There are no exam notes on file for this visit. PHYSICAL EXAMINATION: General: The patient is 68 year old female, well nourished, well hydrated in no acute distress. The patient is oriented to time, place, and person. VITALS: There were no vitals taken for this visit. There is no height or weight on file to calculate BMI. HEENT: Normal cephalic, ataumatic, pupils are equally round, sclera are anicteric, mucous membranes are moist, oropharynx is clear. Neck has no masses, asymmetry or lymphadenopathy. Thyroid is unremarkable. Respiratory: Clear to auscultation and percussion. Normal respiratory excursion and pattern. Cardiac: Examination is regular rate and rhythm. Abdominal exam: Normoactive bowel sounds, Soft, non tender in the right upper quadrant negative Lennon's sign, with no palpable masses. No hepatosplenomegaly. No palpable hernias. Rectal exam: exam deferred Extremities: no clubbing, cyanosis or edema. No adenopathy. Other: LABORATORY VALUES: As Noted RADIOLOGIC STUDIES: As Noted Above Assessment IMPRESSION: RUQ Pain, Cholelithiasis PLAN: I discussed with the patient the findings of her ultrasound along with mild ductal dilation but the fact that her symptoms are not classic. I have asked her to carefully follow her symptoms for the next month to see if she is having more (more content not included)... [facility] 05-20-2024 History of Present illness Narrative HISTORY AND PHYSICAL Rocky Morrison 1955 REFERRING PHYSICIAN: Mark Phipps MD CHIEF COMPLAINT: Consult (Gallstones) HPI: Rocky is a 68 year old female with a complaint of right upper quadrant pain. The patient has had symptoms of right upper quadrant pain for some time. The symptoms occur on an almost daily basis. She notes transient discomfort that last a few minutes. This will occur after bending over or twisting. This does not seem to be related to eating food. This is not truly colic in nature The patient was seen by her primary care physician. Rocky underwent an ultrasound. These tests demonstrated cholelithiasis and sludge. The patient is referred for evaluation and treatment. The patient is being seen by me today at the request of Dr. Mark Phipps MD, for my opinion and advice regarding atypical right upper quadrant pain and cholelithiasis/sludge. 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 OPERATIONS: PAST SURGICAL HISTORY Procedure Laterality Date ADENOIDECTOMY PRIMARY <AGE 13 Adenoidectomy ARTHROSCOPY KNEE DIAGNOSTIC W/WO SYNOVIAL BX SPX Arthroscopy, knee right COLONOSCOPY FLX DX W/COLLJ SPEC WHEN PFRMD 07/25/09 Normal PAST SURGICAL HISTORY OF FOOT, both - heel spurs PAST SURGICAL HISTORY OF Right great toe correction THYROID RIGHT FINE NEEDLE ASPIRATION 09/23/08 TONSILLECTOMY PRIMARY/SECONDARY <AGE 13 Tonsillectomy TOTAL ABDOMINAL HYSTERECT W/WO RMVL TUBE OVARY Hysterectomy, TAHBSO for fibroids & DUB CURRENT MEDICATIONS: Current Outpatient Medications Medication Sig Dispense Refill budesonide-formoterol (SYMBICORT) 80-4.5 mcg/actuation inhaler Inhale 2 Puffs as instructed two times a day as needed. cholecalciferol (VITAMIN D-3) 50 mcg (2,000 unit) tablet Take 2,000 Units by mouth once daily. amLODIPine (NORVASC) 10 mg tablet Take 10 mg by mouth once daily. spironolactone (ALDACTONE) 50 mg tablet Take 50 mg by mouth once daily. albuterol HFA (PROVENTIL HFA, VENTOLIN HFA) 90 mcg/actuation inhaler Inhale 2 Puffs as instructed every 4 hours as needed. 1 Inhaler 2 ibuprofen (MOTRIN) 200 mg tablet Take 1-2 tablets by mouth every 6 hours as needed for Pain (Take with food.). 0 beclomethasone (QVAR) 80 mcg/actuation inhaler Inhale 1 Puff as instructed twice daily. 1 Inhaler 2 montelukast (SINGULAIR) 10 mg tablet Take 1 tablet by mouth daily at bedtime. 30 tablet 3 albuterol HFA (VENTOLIN HFA) 90 mcg/actuation inhaler Inhale 2 Puffs as instructed every 4 hours as needed for Wheezing/Shortness of Breath. 1 Inhaler 0 No current facility-administered medications for this visit. ALLERGIES: Patient has no known allergies. PERSONAL HISTORY: Social History Tobacco Use Smoking status: Never Smokeless tobacco: Never Substance Use Topics Alcohol use: Yes Comment: rarely Drug use: No FAMILY HISTORY: FAMILY HISTORY Problem Relation Age of Onset Cancer Father Prostate Stroke Father Cancer Mother BREAST and stomach cancer Thyroid Mother Heart Sister HI,DM Diabetes Sister other (Other) Sister No ovary/uterine body/colon cancer; ? sister with cervical cancer REVIEW OF SYMPTOMS: The review of systems data was entered by the nurse and reviewed by me There are no exam notes on file for this visit. PHYSICAL EXAMINATION: General: The patient is 68 year old female, well nourished, well hydrated in no acute distress. The patient is oriented to time, place, and person. VITALS: There were no vitals taken for this visit. There is no height or weight on file to calculate BMI. HEENT: Normal cephalic, ataumatic, pupils are equally round, sclera are anicteric, mucous membranes are moist, oropharynx is clear. Neck has no masses, asymmetry or lymphadenopathy. Thyroid is unremarkable. Respiratory: Clear to auscultation and percussion. Normal respiratory excursion and pattern. Cardiac: Examination is regular rate and rhythm. Abdominal exam: Normoactive bowel sounds, Soft, non tender in the right upper quadrant negative Lennon's sign, with no palpable masses. No hepatosplenomegaly. No palpable hernias. Rectal exam: exam deferred Extremities: no clubbing, cyanosis or edema. No adenopathy. Other: LABORATORY VALUES: As Noted RADIOLOGIC STUDIES: As Noted Above Assessment IMPRESSION: RUQ Pain, Cholelithiasis PLAN: I discussed with the patient the findings of her ultrasound along with mild ductal dilation but the fact that her symptoms are not classic. I have asked her to carefully follow her symptoms for the next month to see if she is having more classic symptoms. I have asked her to return in 1 month. If her symptoms become more classic, or if she feels given her current symptoms she would like to proceed - my plan is to perform a laparoscopic cholecystectomy with intraoperative choleangiogram. The planned surgical procedure was discussed extensively with the patient. The risks, benefits, anticipated outcomes and possible complications were mentioned. My staff has also explained the procedure in understandable terms and the patient was given the option to take printed material concerning the planned procedure. The patient had the opportunity to ask questions concerning the planned procedure. The patient freely consents to the planned procedure. Planned Procedure: LAPAROSCOPIC CHOLECYSTECTOMY WITH INTRAOPERATIVE CHOLEANGIOGRAM - [id number] Planned antibiotic: Ancef 2gm IVPB career development consultant to OR SCDs needed - Yes Acid Extractor Needed - Yes Diagnoses: (R10.11) RUQ pain (primary encounter diagnosis) (K80.20) Calculus of gallbladder without cholecystitis without obstruction A letter was sent to Dr. Mark Phipps MD indicating the above finding for this patient. Anshul Montgomery MD Patient left without having intake completed after having visit with provider. Geoff Law LPN documented in this encounter [facility] 05-20-2024 Note HNO ID: [id number] Author: GEOFF LAW LPN Service: ? Author Type: LICENSED NURSE Type: Progress Notes Filed: 05/20/2024 12:44 Note Text: Patient left without having intake completed after having visit with provider. Geoff Law LPN [facility] Evaluation + Plan note No data available for this section [facility] Evaluation note No assessment inform ation available [facility] Work Phone: Evaluation note Diagnosis Onset Date Yann's thyroiditis acut e Thyroid nodule acute [facility] Work Phone: Evaluation note* Diagnosis Onset Date Resolution Status Acute lumbar myofascial strain acute Degenerative disc disease, lumbar acute [facility] Work Phone: Evaluation note* Diagnosis Mild persistent asthma without complication Unspecified asthma Obesity (BMI 30.0-34.9) Obesity, unspecified RUQ pain- Primary Abdominal pain, right upper quadrant Calculus of gallbladder without cholecystitis without obstruction Calculus of gallbladder without mention of cholecystitis or obstruction documented in this encounter [facility] Discharge instructions No data available for this section [facility] Progress note No data available for this section [facility] Reason for referral (narrative)No reason for referral information [facility]WC[facility] Work Phone: Chief Complaint and Reason for Visit Chief Complaint abnormal labs Chief Complaint abnormal labs EORDER Chief Complaint abnormal labs EORDER EORDER Chief Complaint abnormal labs EORDER EORDER EORDER Chief Complaint EORDER SCREENING Chief Complaint SCREENING NODULE FU THYROID US 01/27 R THYROID NODULE Reason for Visit Yann's thyroidi tis Thyroid nodule Chief Complaint PIRIFORMIS SYND/RX H ERE e order Chief Complaint xray LOW BACK PAIN SCREENING EORDER Reason for Visit Acute lumbar myofasc ial strain Degenerative disc disease, lumbar Chief Complaint Admit Date RUQ ABD PAIN, MULTIPLE THYROID NODULES F ebruary 2024 7:11am Advance Directives No Advanced Directives Records Found Advance Directive Response Recorded Date/ Time Living Will No June 23, 2021 2:25pm Power of [place] Converter Blower No June 23 2 2:25pm Advance Directive Response Recorded Date/ Time Living Will No June 23, 2021 1:25pm Power of [employer] Converter Blower No June 23 2 1:25pm Summary Purpose Family History No Family History Records Found No data available for this section No Family History Records FoundNo Family History Records Found Additional Source Comments Goals (unrecognized section and content) Goals may be documented in a n alternate sectionGoals may be documented in an alternate sectionGoals may be documented in an alternate sectionGoals may be documented in an alternate sectionGoals may be documented in an alternate sectionGoals may be documented in an alternate sectionGoals may be documented in an alternate sectionGoals may be documented in an alternate section No data available for this sectionGoals may be documented in an alternate section Care Teams (unrecognized sec tion and content) Team Status: Active Member Role Status Dates Dr. Mark Phipps MD Family Provider Active Dr. Mark Phipps MD Primary Care Provider Active Team Status: Inactive Member Role Status Dates Dr. Mark Phipps MD Primary Care Provider, Referr ing Provider Active Dr. Sandip Raman MD Attending Provider Active Team Status: Inactive Member Role Status Dates Dr. Mark Phipps MD Primary Care Provider Active Natalie Ely NP-C Attending Provider Active Team Status: Inactive Member Role Status Dates Dr. Mark Phipps MD Primary Care Provider Active Dr. Sandip Raman MD Attending Provider, Referring Provider Active Team Status: Inactive Member Role Status Dates Dr. Mark Phipps MD Primary Care Provider Active Dr. Sandip Raman MD Attending Provider Active Team Status: Inactive Member Role Status Dates Dr. Mark Phipps MD Primary Care Provider, Attend ing Provider Active Team Status: Active Member Role Status Dates Dr. Mark Phipps MD Primary Care Provider Active Cheryl Ruiz NP-C Attending Provider, Referring Pr ovider Active Team Status: Inactive Member Role Status Dates Dr. Mark Phipps MD Primary Care Provider, Referr ing Provider Active Vinh Slade PA, PA Attending Provider Active Team Status: Inactive Member Role Status Dates Dr. Mark Phipps MD Primary Care Provider Active Dr. Heath Hansen MD Attending Provider Active Team Status: Inactive Member Role Status Dates Dr. Mark Phipps MD Primary Care Pr ovider, Attending Provider, Referring Provider Active Press Operator Helper Relationship Specialty Start Date End Date Mark Phipps MD [address] [place] [address] PCP - General Family Medicine 05/20/24 Team Status: Active Member Role Status Dates Dr. Mark Phipps MD Primary Care Provider Active Team Status: Inactive Member Role Status Dates Dr. Mark Phipps MD Primary Care Provider Active Start: April 28, 2024 End: April 28, 2024 Dr. Mark Phipps MD Attending Provider Active Start: April 28, 2024 End: April 28, 2024 Dr. Mark Phipps MD Referring Provider Active Start: April 28, 2024 End: April 28, 2024 Team Status: Inactive Member Role Status Dates Dr. Mark Phipps MD Primary Care Provider Active Start: April 30, 2024 End: April 30, 2024 Dr. Mark Phipps MD Attending Provider Active Start: April 30, 2024 End: April 30, 2024 Dr. Mark Phipps MD Referring Provider Active Start: April 30, 2024 End: April 30, 2024 Team Status: Inactive Member Role Status Dates Dr. Mark Phipps MD Primary Care Provider Active Start: August 12, 2024 End: August 12, 2024 Dr. Mark Phipps MD Attending Provider Active Start: August 12, 2024 End: August 12, 2024 Dr. Mark Phipps MD Referring Provider Active Start: August 12, 2024 End: August 12, 2024 Source Comments (unrecognize d section and content) In the event this informatio n is protected by the Federal Confidentiality of Alcohol and Drug Abuse Patient Records regulations: The Federal rules restrict any use of the information to criminally investigate or prosecute any alcohol or drug abuse patient.[facility] Reason for Visit (unrecogniz ed section and content) Reason Comments Consult Gallstones INFORMATION SOURCE (unrecogn ized section and content) DATE CREATED AUTHOR 05/22/2024 [facility] DATE CREATED AUTHOR AUTHOR'S ORGANIZ ATION 08/22/2024 [facility] DATE CREATED AUTHOR AUTHOR'S ORGANIZ ATION 08/26/2024 [facility] FOR RECORDS PERTAINING TO PATIENTS WHO ARE [...] BE BASED ON THE PRIMARY CLINICAL RECORDS. [facility] [employer], [facility]. provides no warranty or guarantee of the accuracy or completeness of information in this document.
--- NOTE | 2024-08-28 10:37 | STRESSREP ---
Stress Test Report Date: 08/28/2024 Procedure: Pharmacologic stress nuclear imaging study Indications: Abnormal EKG, preoperative evaluation Consent: Per the patient Procedure: The patient underwent pharmacologic (Regadenoson) evaluation with a peak heart rate of 104 beats per minute (67%predicted maximal heart rate) and a peak blood pressure of 142/82 mmHg. The baseline ECG demonstrated normal sinus rhythm. EKG during lexiscan infusion revealed no significant ischemic changes. EKG post infusion revealed no significant ischemic changes [There were no cardiac dysrhythmias pretest, during pharmacologic infusion, or recovery]. [There was no complaint of chest discomfort during pharmacologic infusion or recovery]. The examination was discontinued secondary to completion of protocol. Impression: 1. Lexiscan stress test test is negative for Lexiscan infusion induced EKG changes of ischemia. 2. Lexiscan stress test test is negative for Lexiscan infusion induced chest pain. 3. Results of the nuclear portion of the test is as below Myocardial perfusion imaging study: Technique: The patient was injected with 13.8 millicuries of technetium 99m Cardiolite and subsequently rest SPECT Cardiolite nuclear imaging was obtained in the horizontal long, vertical long, and short axis views. The patient underwent pharmacologic [Regadenoson 0.4mg] evaluation. Please see above for details. The patient was injected with 40.1 millicuries of technetium 99m Cardiolite and subsequently stress SPECT Cardiolite nuclear imaging was obtained in the horizontal long, vertical long, and short axis views. A gated Cardiolite study at peak stress was obtained. Interpretation: Rest and stress SPECT Cardiolite nuclear imaging status post realignment, normalization, and attenuation correction demonstrate no significant ischemia or infarction. Gated images reveal no significant regional wall motion abnormalities. The reported LVEF is 68%. Impression: 1. There is no evidence of significant ischemia or infarction. 2. Estimated ejection fraction is 68%. This note was generated with [employer] software. It may contain incorrect words, spelling, and punctuation that were not noted in checking the note before signing.
== END 2024-08-28 23:59 | disposition home or self-care (01) ==
LOC: CVS 06:28
PROVIDERS: PCP Family Medicine; Referring Provider Family Medicine; Visit Provider Family Medicine
DX: Z01.810 Encounter for preprocedural cardiovascular examination (principal); R94.31 Abnormal electrocardiogram [ECG] [EKG]; I10 Essential (primary) hypertension
CPT/HCPCS: 78452; 93017; A9500; A4216; J2785

== ENCOUNTER 2024-10-02 10:00 | Outpatient (RCR) | payer MEDICARE, SELFPAY ==
--- NOTE | 2024-09-09 14:30 | HP.PTEVAL_ITS ---
Patient's Visit Information Visit Information Visit Information: ROCKY MORRISON is a 68 year old F referred to Physical Therapy by RASHMI GRIMM with a diagnosis of R TKR 09-08-24. Date of Evaluation: 09/09/24 Physical Therapist: ADRIANE Zendejas Visit Plan Frequency: 2-3x /Week Duration: 3 Months Plan: 2-3X/ week for 12 weeks for R knee AROM/AAROM/PROM, stretching and strengthening of R knee and hip, gait training, functional strength with HEP HEP; seated and supine heel slides, QS with heel prop, qs SITTING IN A CHAIR, ANKLE PUMPS Subjective Subjective: Pt just had R TKR yesterday on 09-08-24. told her that they had a little complication in surgery and he does not want her to twist on her knee. This is her first TKR. She lives alone and has a friend staying with her for a week. She has 3 steps with bars from garage into the house and she has done good with them going up with the L and down with the R leg. She is on a rolling walker. She RTD on 09-21-24 Pain R knee pain: Pain Intensity (Out of 10): 3 Objective Objective: Gait: walks with rolling walker with decrease stride length and decrease stance time on the R LE. Pt has a bandage that she has to wear for 7 days and MARY hose for 26 days Sit to stand; able to get up on first attempt with the use of her arms WOMAC 62 TUG 22.36 Girth R patella 51.3 Girth 6 inch suprapatella 63.5 R knee AROM -30 to 86 degrees knee flexion R knee flex MMT 5.2 and R knee ext MMT 7.8 Balance/Special Test Scores WOMAC Total Score: 62 WOMAC Percentatge: 35.4200 Goals Goal 1:: I HEP Goal Time Frame: 8-12 Weeks Goal 2:: Be able to walk with a normal gait pattern with least restrictive de vice Goal Time Frame: 8-12 Weeks Goal 3:: Increase R knee AROM (at the time of the eval: R knee AROM -30 to 86 degrees knee flexion) Goal Time Frame: 8-12 Weeks Goal 4:: Be able to go up and down step recip with 1 hand rail Goal Time Frame: 8-12 Weeks Goal 5:: Be able to sit to stand without using her UE's on first attempt Goal Time Frame: 8-12 Weeks Rehabilitation Potential Rehabilitation Potential: Good Anticipated Interventions Patient/Client Instruction: Educate patient on: Condition and Plan of Care For the Purpose of:: To decrease pain, To increase ROM, To improve nutrient delivery to tissue, To increase oxygenation perfusion, To improve muscle performance and motor function, To improve ability to perform ADL's, To increase tolerance to activity/condition/position, To improve performance and independence with ADL's, To decrease level of supervision to perform tasks, To improve ability of physical actions for home/community/work/leisure, To improve gait and locomotor functions, To improve health of tissue, To decrease soft tissue restriction, To increase flexibility/ROM, To improve endurance, To improve balance, To improve safety with gait and To assume or resume ADL's Therapeutic Exercise to Include: Strength training, Endurance training, Balance training, Postural training, Flexibilty training, Gait and locomotor training, Passive ROM and Active ROM For the Purpose of:: To decrease pain, To increase ROM, To increase oxygenation perfusion, To improve muscle performance and motor function, To improve ability to perform ADL's, To increase tolerance to activity/condition/position, To improve performance and independence with ADL's, To decrease level of supervision to perform tasks, To improve ability of physical actions for home/community/work/leisure, To improve gait and locomotor functions, To improve health of tissue, To decrease soft tissue restriction and To increase flexibility/ROM Functional Training to Include: Gait training For the Purpose of:: To improve gait and locomotor functions and To improve safety with gait Manual Therapy Techniques to Include: Mobilization, Passive ROM and Soft tissue mobilization For the Purpose of:: To decrease pain, To increase ROM, To improve nutrient delivery to tissue, To improve muscle performance and motor function, To improve ability to perform ADL's, To increase tolerance to activity/condition/position, To improve health of tissue, To decrease soft tissue restriction and To increase flexibility/ROM Cryotherapy (ice pack, ice massage): Yes For the Purpose of:: To decrease swelling/inflammation, To increase ROM and To improve nutrient delivery to tissue Text: Thank you for the opportunity to evaluate your patient. For Medicare and Medicare HMO plans, please review the plan of care and approve it. It will need to be FAXED BACK to us at [phone] for Medicare purposes. For Medicare only, by signing this I certify the plan of care. Please let me know if there are questions or concerns regarding this plan of care. Physician Signature: Date:
--- NOTE | 2024-12-22 08:38 | HP.PTDCNRP_ITS ---
Patient Information Patient Information: ROCKY MORRISON was seen in my office for initial evaluation on 09/09/24. The following Plan of Care was established for this patient: POC Established Initial Frequency: 2-3x /Week Initial Duration: 3 Months Anticipated Interventions Patient/Client Instruction: Educate patient on: Condition and Plan of Care For the Purpose of:: To decrease pain, To increase ROM, To improve nutrient delivery to tissue, To increase oxygenation perfusion, To improve muscle performance and motor function, To improve ability to perform ADL's, To increase tolerance to activity/condition/position, To improve performance and independence with ADL's, To decrease level of supervision to perform tasks, To improve ability of physical actions for home/community/work/leisure, To improve gait and locomotor functions, To improve health of tissue, To decrease soft tissue restriction, To increase flexibility/ROM, To improve endurance, To improve balance, To improve safety with gait and To assume or resume ADL's Therapeutic Exercise to Include: Strength training, Endurance training, Balance training, Postural training, Flexibilty training, Gait and locomotor training, Passive ROM and Active ROM For the Purpose of:: To decrease pain, To increase ROM, To increase oxygenation perfusion, To improve muscle performance and motor function, To improve ability to perform ADL's, To increase tolerance to activity/condition/position, To improve performance and independence with ADL's, To decrease level of sup ervision to perform tasks, To improve ability of physical actions for home/community/work/leisure, To improve gait and locomotor functions, To improve health of tissue, To decrease soft tissue restriction and To increase flexibility/ROM Functional Training to Include: Gait training For the Purpose of:: To improve gait and locomotor functions and To improve safety with gait Manual Therapy Techniques to Include: Mobilization, Passive ROM and Soft tissue mobilization For the Purpose of:: To decrease pain, To increase ROM, To improve nutrient delivery to tissue, To improve muscle performance and motor function, To improve ability to perform ADL's, To increase tolerance to activity/condition/position, To improve health of tissue, To decrease soft tissue restriction and To increase flexibility/ROM Cryotherapy (ice pack, ice massage): Yes For the Purpose of:: To decrease swelling/inflammation, To increase ROM and To improve nutrient delivery to tissue Last Seen Last Seen: This patient was last seen in our office 10/02/24. Pertinent comments regarding their Physical therapy will appear below: DC PT At this point I will be discontinuing this patient from physical therapy. I would be happy to see this patient again in the future if found appropriate by the physician. Thank you! Shirley Caldwell, ADRIANE Balance/Gait/Functional tests Balance/Special Test Scores WOMAC Total Score: 62 WOMAC Percentage: 35.4207
== END 2024-10-02 19:00 | disposition home or self-care (01) ==
LOC: PT 10:00
PROVIDERS: PCP Family Medicine
DX: M25.561 Pain in right knee (principal)
CPT/HCPCS: 97110; 97140; 97161

== ENCOUNTER → 2025-01-21 | Outpatient (CLI) | payer MEDICARE, SELFPAY ==
--- NOTE | 2025-01-21 07:45 | BD_ITS ---
PROCEDURE: BD/Dexa Bone Density Study
--- NOTE | 2025-01-21 08:30 | BI_ITS ---
EXAM: BI/SCRN MAMM (CAD)W/ZULEYMA BILAT
== END | disposition home or self-care (01) ==
LOC: OPBD 07:43
PROVIDERS: PCP Family Medicine
DX: Z13.820 Encounter for screening for osteoporosis (principal); Z78.0 Asymptomatic menopausal state; Z12.31 Encounter for screening mammogram for malignant neoplasm of breast
CPT/HCPCS: 77063; 77067; 77080